=== PATIENT | female | born 1935 | race Caucasian/White ===

== ENCOUNTER → 2017-06-17 | Outpatient (CLI) | payer OTHER ==
[~2017-06-17] MED LIST: ASPEC81 PO; ASPI81TA28 PO; CHOL100010 PO; CHOL100041 PO; CLC100 PO; CRS10 PO; DILT-113 PO; DXY100 PO; FURO-85 PO; GABA-112 PO; HYDR-4716 PO; KFL/250 PO; LEVO100T7 PO; LEVO88TA PO; LOSA100T65 PO; MAXAIR IN; MYCO15 TD; PLV75 PO; POTA20TA16 PO; ROSU20TA PO; VNTHFA/IN INH
== END | disposition home or self-care (01) ==
LOC: C.LABSPEC 16:31
PROVIDERS: ATTEND Dermatology
DX: L03.90 Cellulitis, unspecified (principal)

== ENCOUNTER 2017-06-18 18:06 | Observation (INO) | payer OTHER ==
[~2017-06-18] VITALS: Ht 162.6 cm; Wt 76.0 kg
[~2017-06-18 18:06] MED LIST changes: -ASPI81TA28 PO; -CHOL100041 PO; -CLC100 PO; -DXY100 PO; -GABA-112 PO; -KFL/250 PO; -LEVO88TA PO; -ROSU20TA PO; -VNTHFA/IN INH
--- NOTE | 2017-06-18 19:01 | DIAGNOSTIC IMAGING REPORT ---
R PELVIS/UNILATERAL HIP 2-3VIEWS CLINICAL HISTORY: 82 years-old Female presenting with EVAL FOR FX. TECHNIQUE: Single frontal view of the pelvis and frontal and lateral views of the right hip were obtained. COMPARISON: None. FINDINGS: Osteopenia. Sacroiliac joints and pubic symphysis congruent. Left hip joint congruent. Postsurgical changes of total right hip arthroplasty. Cerclage wire and plate and screw fixation of the mid diaphysis of the right femur with evidence of chronic periosteal reaction indicating posttraumatic deformity. No hardware complication or malalignment is apparent. No periprosthetic fracture allowing for osteopenia, which decreases the sensitivity for nondisplaced fracture. No hardware breakage. Degenerative changes of the right knee joint. Atherosclerosis. IMPRESSION: Postsurgical changes of total right hip arthroplasty with internal fixation of the mid femoral diaphysis and posttraumatic deformity. No convincing evidence of acute osseous injury allowing for osteopenia. Electronically signed by: Samir Tamayo M.D. 06/18/2017 7:00 PM Dictated Date/Time: 06/18/2017 6:58 PM
--- NOTE | 2017-06-18 19:10 | DIAGNOSTIC IMAGING REPORT ---
L-SPINE MIN 4 VIEWS ROUTINE HISTORY: 82 years-old Female eval for fx acute low back pain status post fall COMPARISON: None available TECHNIQUE: 5 views of the lumbar spine FINDINGS: There are 5 lumbar type vertebral segments present. No spondylolysis or spondylolisthesis. The bones appear to be osteoporotic. No acute fracture or subluxation. Severe intervertebral disc space narrowing at L5-S1 with moderate intervertebral disc space narrowing of the lower thoracic spine. Severe facet arthropathy of the mid and lower lumbar spine with mostly mild multilevel endplate spurring. Atherosclerosis of the aorta. Probable phleboliths of the pelvis. Right hip arthroplasty. IMPRESSION: 1. No acute fracture or subluxation. 2. Degenerative changes as above. 3. Osteoporotic appearance of the bones. The above report was generated using voice recognition software. It may contain grammatical, syntax or spelling errors. Electronically signed by: Santy Gonzalez M.D. 06/18/2017 7:09 PM Dictated Date/Time: 06/18/2017 7:06 PM
[2017-06-18] MEDS ORDERED: VNTHFA/IN INH (19:49)
[2017-06-18] MEDS ORDERED: GABA-112 PO (19:49)
[2017-06-18] MEDS ORDERED: ROSU20TA PO (19:49)
[2017-06-18] MEDS ORDERED: CHOL100041 PO (19:49)
[2017-06-18] MEDS ORDERED: ASPI81TA28 PO (19:49)
[2017-06-18] MEDS ORDERED: LEVO88TA PO (19:49)
[2017-06-18] MEDS ORDERED: KFL/250 PO (19:50)
[2017-06-18] MEDS ORDERED: OXYCODONE HCL IR 5 MG TAB (IMMEDIATE RELEASE) PO STA (20:03)
--- NOTE | 2017-06-18 20:48 | DIAGNOSTIC IMAGING REPORT ---
PELVIS NO IV/ORAL CONT (CT) HISTORY: 82 years-old Female eval for pelvic fracture acute pelvic pain status post fall. Prior right hip arthroplasty. COMPARISON: Pelvis and right hip radiographs 2017 TECHNIQUE: Multiple axial CT images of the pelvis were obtained without contrast. A dose lowering technique was used consistent with the principals of PAT. FINDINGS: Moderate osteoarthritis about the left hip. Ghost tracks from prior cannulated screws noted within the left intertrochanteric region. Avascular necrosis of the left femoral head is noted with partial articular collapse involving approximately 20% of the articular femoral head, nicely seen on image 39 series 201. Moderate degenerative changes about the pubic symphysis. The bilateral superior and inferior pubic rami appear intact. No pelvic fracture identified. Right hip arthroplasty noted with satisfactory alignment. No evidence of hardware complication. The bones are moderately demineralized. Transitional lumbosacral anatomy is noted with sacralization of the L5 segment. Broad and elongated left L5 transverse process demonstrates pseudoarticulation with the adjacent left sacral ala. There is no evidence of acute sacral insufficiency fracture. Severe facet arthrosis of the lower lumbar spine with moderate endplate spurring. 3 mm anterolisthesis L5 on S1 likely secondary to long-standing facet arthropathy. No acute fracture or subluxation of the imaged lower lumbar spine. Partially imaged 5.0 cm cystic lesion within internal calcified septations as noted involving the inferior pole left kidney. Bilateral renal calcifications are noted suggesting nephrolithiasis. Low attenuating lesions of the right kidney measuring up to 1.8 cm suggests renal cysts. Extensive calcification of the aorta and iliac arteries. No acute intrapelvic abnormality identified. Vascular calcifications are seen involving the uterus. Pelvic structures are partially obscured secondary to streak artifact from right hip arthroplasty. Indeterminate 2.0 cm cystic lesion of the left adnexum. Moderate atrophy noted involving the musculature about the left hip. There is nonspecific bilateral inguinal adenopathy measuring up to 11 mm. IMPRESSION: 1. Moderately demineralized appearance of the bones without acute fracture or subluxation identified. 2. Right hip arthroplasty without evidence of hardware complication. 3. Remote postoperative changes about the left hip with left femoral head avascular necrosis. There is articular collapse involving approximately 20% of the articular femoral head. 4. Transitional lumbosacral anatomy with severe multilevel facet arthropathy of the lower lumbar spine. 5. Indeterminate mild bilateral inguinal adenopathy measuring up to 11 mm in short axis. 6. Partially imaged complex cyst of the inferior pole left kidney. The above report was generated using voice recognition software. It may contain grammatical, syntax or spelling errors. Electronically signed by: Santy Gonzalez M.D. 06/18/2017 8:47 PM Dictated Date/Time: 06/18/2017 8:34 PM
[2017-06-18 22:03] LABS: HEMATOCRIT 37.6 % (37-47); HEMOGLOBIN 12.5 g/dL (12.0-16.0); MEAN CELL VOLUME 79.5 fL (80-100); MEAN CORPUSCULAR HEMOGLOBIN 26.4 pg (25-34); MEAN CORPUSCULAR HGB CONC 33.2 g/dl (32-36); MEAN PLATELET VOLUME 9.1 fL (7.4-10.4); PLATELET COUNT 161 K/uL (130-400); RED CELL DISTRIBUTION WIDTH CV 17.8 % (11.5-14.5); RED CELL DISTRIBUTION WIDTH SD 51.5 fL (36.4-46.3); WHITE BLOOD COUNT 2.89 K/uL (4.8-10.8)
[2017-06-18 22:18] LABS: CALCIUM 9.1 mg/dl (8.5-10.1); CREATININE 0.57 mg/dl (0.60-1.20); POTASSIUM 3.7 mmol/L (3.5-5.1)
[2017-06-18 22:33] LABS: BASO % 0.3 %; BASO ABS # 0.01 K/uL (0-0.2); EOS % 1.7 %; EOS ABS # 0.05 K/uL (0-0.5); IG# 0.01 K/uL (0.00-0.02); LYMPH % 10.7 %; LYMPH ABS # 0.31 K/uL (1.2-3.4); MONO % 15.2 %; MONO ABS # 0.44 K/uL (0.11-0.59); NEUT % 71.8 %; NEUT ABS # 2.07 K/uL (1.4-6.5)
[2017-06-18] MEDS ORDERED: LOSARTAN POTASSIUM 50 MG TAB PO ONE (23:02)
[2017-06-18] MEDS ORDERED: GABAPENTIN 100 MG CAP PO ONE (23:02)
[2017-06-18] MEDS ORDERED: PROCHLORPERAZINE INJ 5 MG in SYRINGE 4 ML IV PRN (23:15)
[2017-06-18] MEDS ORDERED: ACETAMINOPHEN 325 MG TAB PO PRN (23:15)
--- NOTE | 2017-06-18 23:30 | EMERGENCY ROOM VISIT NOTE ---
History Report prepared by Nata: Vernon Kim Under the Supervision of: Dr. Dewey Ardon M.D. First contact with patient: 18:09 Chief Complaint: FALL Stated Complaint: FALL, LOWER BACK PAIN History of Present Illness The patient is an 82 year old female who presents to the Emergency Room with complaints of a fall this evening. She notes that she was walking to the bathroom using a walker. She notes her walker "got away from me," and she slipped and fell backwards on to her back. She notes her lower back is in pain. She notes the pain is more to the right. She denies any head or neck injury. She denies any arm or leg pain. She denies any weakness. She notes the pain is worsened with movement. She has a history of stroke which has made it difficult for her to walk normally. She reports a history of total hip replacement performed by Dr. Alicea. She denies any history of recent illness, though she has cellulitis to her left leg and she is currently taking Keflex. Source of History: patient Onset: this evening Position: back (lower) Symptom Intensity: moderate Quality: ache Timing: intermittent Modifying Factors (Worsening): movement Associated Symptoms: No neck pain Note: She denies any head injuries, arm pain, or leg pain. Review of Systems See HPI for pertinent positives & negatives. A total of 10 systems reviewed and were otherwise negative. Past Medical & Surgical Medical Problems: (1) Fall (2) HLD (hyperlipidemia) (3) HTN (hypertension) (4) Hypothyroidism (5) Lacunar infarction (6) Stroke Surgical Problems: (1) H/O total hip arthroplasty (2) History of appendectomy (3) History of bilateral hip replacements (4) Hx of total knee arthroplasty Family History Omit d/t age Social History Smoking Status: Former Smoker Smokeless Tobacco Use: No Alcohol Use: none Drug Use: none Marital Status: Housing Status: lives with family Occupation Status: retired Current/Historical Medications Scheduled Aspirin (Aspirin Ec), 81 MG PO DAILY Cephalexin Monohydrate (Keflex), 250 MG PO QID Cholecalciferol (D 1000), 1,000 UNITS PO DAILY Clopidogrel Bisulfate (Clopidogrel), 75 MG PO DAILY Gabapentin (Neurontin), 100 MG PO TID Levothyroxine Sodium (Synthroid), 88 MCG PO DAILY Losartan Potassium (Cozaar), 100 MG PO DAILY Rosuvastatin Calcium (Crestor), 20 MG PO DAILY Scheduled PRN Albuterol Hfa (Ventolin Hfa), 2 PUFFS INH Q6H PRN for SOB/Wheezing Furosemide (Lasix), 20 MG PO UD PRN for SWELLING Nystatin/Triamcinolone (Nystatin/Triamcinolone 308682-1.1 Unit/gm-%), 1 APPLN TD DAILY PRN for Itching Allergies Coded Allergies: LINH Inhibitors (Verified Allergy, Unknown, UNK, 08/14/15) Aminophylline (Verified Allergy, Unknown, 08/14/15) Amoxicillin (Verified Allergy, Unknown, SWELLING OF HANDS, 08/14/15) Beta Adrenergic Blockers (Verified Allergy, Unknown, UNK, 08/14/15) Penicillins (Verified Allergy, Unknown, 08/14/15) Physical Exam Vital Signs Date Time Temp Pulse Resp B/P (MAP) Pulse Ox O2 Delivery O2 Flow Rate FiO2 06/18/17 22:17 84 16 162/88 94 Room Air 06/18/17 20:20 76 19 134/76 95 Room Air 06/18/17 18:24 36.7 82 19 184/97 95 Room Air Physical Exam Constitutional: Vital signs reviewed. Eyes: Pupils are equal round reactive to light. Conjunctiva are noninjected. ENT: Pharynx is clear without erythema or exudate. Mucous membranes are moist. Neck supple without meningeal signs. No midline tenderness to cervical spine. Respiratory: Clear to auscultation bilaterally. Breath sounds are equal bilaterally. Cardiovascular: Regular rate and rhythm. No rubs or gallops. GI: Soft, nondistended and nontender. Bowel sounds are present. Musculoskeletal: No tenderness to upper extremities or right hip. No deformity or shortening of right leg. No tenderness to right leg. Some erythema to shins bilaterally, left greater than right. Normal distal pulses. Integumentary: No cyanosis. Neurological: The patient is awake and alert. No focal deficits. Psychiatric: Normal affect. Medical Decision & Procedures ER Provider Diagnostic Interpretation: Radiology results as stated below per my review and the radiologist's interpretation: R PELVIS/UNILATERAL HIP 2-3VIEWS CLINICAL HISTORY: 82 years-old Female presenting with EVAL FOR FX. TECHNIQUE: Single frontal view of the pelvis and frontal and lateral views of the right hip were obtained. COMPARISON: None. FINDINGS: Osteopenia. Sacroiliac joints and pubic symphysis congruent. Left hip joint congruent. Postsurgical changes of total right hip arthroplasty. Cerclage wire and plate and screw fixation of the mid diaphysis of the right femur with evidence of chronic periosteal reaction indicating posttraumatic deformity. No hardware complication or malalignment is apparent. No periprosthetic fracture allowing for osteopenia, which decreases the sensitivity for nondisplaced fracture. No hardware breakage. Degenerative changes of the right knee joint. Atherosclerosis. IMPRESSION: Postsurgical changes of total right hip arthroplasty with internal fixation of the mid femoral diaphysis and posttraumatic deformity. No convincing evidence of acute osseous injury allowing for osteopenia. Electronically signed by: Samir Tamayo M.D. 06/18/2017 7:00 PM Dictated Date/Time: 06/18/2017 6:58 PM L-SPINE MIN 4 VIEWS ROUTINE HISTORY: 82 years-old Female eval for fx acute low back pain status post fall COMPARISON: None available TECHNIQUE: 5 views of the lumbar spine FINDINGS: There are 5 lumbar type vertebral segments present. No spondylolysis or spondylolisthesis. The bones appear to be osteoporotic. No acute fracture or subluxation. Severe intervertebral disc space narrowing at L5-S1 with moderate intervertebral disc space narrowing of the lower thoracic spine. Severe facet arthropathy of the mid and lower lumbar spine with mostly mild multilevel endplate spurring. Atherosclerosis of the aorta. Probable phleboliths of the pelvis. Right hip arthroplasty. IMPRESSION: 1. No acute fracture or subluxation. 2. Degenerative changes as above. 3. Osteoporotic appearance of the bones. The above report was generated using voice recognition software. It may contain grammatical, syntax or spelling errors. Electronically signed by: Santy Gonzalez M.D. 06/18/2017 7:09 PM Dictated Date/Time: 06/18/2017 7:06 PM Laboratory Results 06/18/17 21:53 Red Blood Count 4.73, Mean Corpuscular Volume 79.5, Mean Corpuscular Hemoglobin 26.4, Mean Corpuscular Hemoglobin Concent 33.2, Mean Platelet Volume 9.1, Neutrophils (%) (Auto) 71.8, Lymphocytes (%) (Auto) 10.7, Monocytes (%) (Auto) 15.2, Eosinophils (%) (Auto) 1.7, Basophils (%) (Auto) 0.3, Neutrophils # (Auto ) 2.07, Lymphocytes # (Auto) 0.31, Monocytes # (Auto) 0.44, Eosinophils # (Auto ) 0.05, Basophils # (Auto) 0.01 06/18/17 21:53 Test 06/18/17 21:53 White Blood Count 2.89 K/uL (4.8-10.8) Red Blood Count 4.73 M/uL (4.2-5.4) Hemoglobin 12.5 g/dL (12.0-16.0) Hematocrit 37.6 % (37-47) Mean Corpuscular Volume 79.5 fL (80-100) Mean Corpuscular Hemoglobin 26.4 pg (25-34) Mean Corpuscular Hemoglobin Concent 33.2 g/dl (32-36) Platelet Count 161 K/uL (130-400) Mean Platelet Volume 9.1 fL (7.4-10.4) Neutrophils (%) (Auto) 71.8 % Lymphocytes (%) (Auto) 10.7 % Monocytes (%) (Auto) 15.2 % Eosinophils (%) (Auto) 1.7 % Basophils (%) (Auto) 0.3 % Neutrophils # (Auto) 2.07 K/uL (1.4-6.5) Lymphocytes # (Auto) 0.31 K/uL (1.2-3.4) Monocytes # (Auto) 0.44 K/uL (0.11-0.59) Eosinophils # (Auto) 0.05 K/uL (0-0.5) Basophils # (Auto) 0.01 K/uL (0-0.2) RDW Standard Deviation 51.5 fL (36.4-46.3) RDW Coefficient of Variation 17.8 % (11.5-14.5) Immature Granulocyte % (Auto) 0.3 % Immature Granulocyte # (Auto) 0.01 K/uL (0.00-0.02) Ovalocytes 1+ Anion Gap 7.0 mmol/L (3-11) Est Creatinine Clear Calc Drug Dose 77.0 ml/min Estimated GFR () 100.1 Estimated GFR (Non- 86.3 BUN/Creatinine Ratio 20.7 (10-20) Calcium Level 9.1 mg/dl (8.5-10.1) Magnesium Level 1.8 mg/dl (1.8-2.4) Laboratory results as reviewed by me. Medications Administered Medications (Trade) Dose Ordered Sig/Milagro Route Start Time Stop Time Status Last Admin Dose Admin Oxycodone HCl (Roxicodone Immediate Rel Tab) 5 mg NOW STAT PO 06/18/17 20:03 06/18/17 20:05 DC 06/18/17 20:08 5 MG ED Course 1810: The patient was evaluated in room A12B. A complete history and physical exam was performed. 1910: I reassessed the patient at this time. She will have an ambulatory trial performed. 1936: I spoke with VANNESSA Knapp. She stated that the patient's ambulatory trial was unsuccessful. 1999: I reassessed the patient at this time. She states that when she tried to walk she had a lot of pain above her right pelvis. There is no tenderness to lumbar spine, though there is mild tenderness to the iliac crest on the right side. 2002: Ordered Oxycodone HCl 5 mg PO 2139: I spoke with VANNESSA Knapp. The patient did not do any better with a second ambulatory trial. 2141: I reassessed the patient at this time. She is unable to ambulate despite pain medication. I discussed the results and treatment plan with the patient. I answered all pertaining questions that she had. She expressed understanding and verbalized agreement. The patient will be further evaluated. 2146: I spoke with Dr. Sheets, [facility] hospitalist. We discussed the patient' s case. [facility]. Medical Decision This is an 82-year-old female who presents with injuries after fall. Differential diagnosis includes lumbar compression fracture, intervertebral disc disease, hip fracture, pelvic fracture, contusion. I did perform a limited focused review of portions of the patient's old chart on the electronic medical record. The patient has had no recent pertinent visits to this hospital. I did evaluate the patient as noted above. The patient had a mechanical fall and complains of lower back pain and right hip pain. I did order and personally review the patient's x-rays as described above. There is no evidence of fracture or dislocation. We did try to ambulate her. She had significant difficulty and so I did treat her with OxyIR 1 tab p.o. I did order a CT of the pelvis to evaluate for occult fracture. I did review the images myself as well as the radiology report as described above. There was no evidence of fracture. She was still unable to walk after the pain medication. She will therefore require hospitalization for further care as her cannot take care of her at home. He states it is difficult enough since her stroke and now with this recent injury he will not be able to care for her. IV access was established. I did order and review the patient's blood work as noted in the electronic medical record. She does have leukopenia. I did discuss case with the hospitalist and case coordinator. Medication Reconcilliation Current Medication List: was personally reviewed by me Blood Pressure Screening Patient's blood pressure: Elevated blood pressure Consults Time Called: 2143 Consulting Physician: Dr. Sheets [facility] Returned Call: [address] [facility] We discussed the patient's case. The [facility]. Impression Primary Impression: Low back pain Additional Impressions: Fall Ambulatory dysfunction Bilateral lower leg cellulitis Leukopenia Scribe Attestation The scribe's documentation has been prepared under my direct and personally reviewed by me in its entirety. I confirm that the note above accurately reflects all work, treatment, procedures, and medical decision making performed by me. Departure Information Dispostion Being Evaluated By Hospitalist Referrals Bulmaro Forbes M.D. (PCP) Patient Instructions My [facility] Problem Qualifiers Primary Impression: Low back pain Chronicity: acute Back pain laterality: bilateral Sciatica presence: without sciatica Qualified Codes: M54.5 - Low back pain Additional Impressions: Fall Encounter type: initial encounter Qualified Codes: W19.XXXA - Unspecified fall, initial encounter Leukopenia Leukopenia type: unspecified Qualified Codes: D72.819 - Decreased white blood cell count, unspecified
[2017-06-18 23:54] VITALS: Ht 162.6 cm; Wt 76.0 kg
[2017-06-19] VITALS: BP 142/78; PULSE 90; TEMP 36.7; O2SAT 95
[2017-06-19] MEDS ORDERED: DOXYCYCLINE IV 100 MG in DEXTROSE 5% 100ML 100 ML IV ONE (00:30)
[2017-06-19] MEDS ORDERED: NSS + 20MEQ KCL 1000ML 1,000 ML IV ONE (01:00)
[2017-06-19] MEDS: TRAMADOL HCL 50 MG TAB PO PRN ×2 (01:36→16:36)
[2017-06-19] MEDS ORDERED: IV FLUIDS COMPLETED PRN (04:30)
[2017-06-19] MEDS: LEVOTHYROXINE 88 MCG TAB PO SCH (06:16)
--- NOTE | 2017-06-19 06:55 | DIAGNOSTIC IMAGING REPORT ---
L VENOUS DOPP LOWER EXT UNILAT CLINICAL HISTORY: 82 years-old Female presenting with LLE swelling. TECHNIQUE: Real-time grayscale and color and spectral Doppler ultrasound imaging of the veins of the left lower extremity was performed. Compression and augmentation were also utilized. COMPARISON: None. FINDINGS: Left: Common femoral vein: Patent. Greater saphenous vein: Patent. Deep femoral vein: Patent. Femoral vein: Patent. Popliteal vein: Patent. Calf veins: Limited visualization. Other: None. IMPRESSION: No evidence of deep venous thrombosis. Electronically signed by: Samir Tamayo M.D. 06/19/2017 6:54 AM Dictated Date/Time: 06/19/2017 6:53 AM
[2017-06-19 07:14] VITALS: BP 156/73; PULSE 82; TEMP 36.9; O2SAT 94
[2017-06-19 07:26] LABS: HEMOGLOBIN A1C 5.5 % (4.5-5.6)
[2017-06-19 08:00] VITALS: O2SAT 94
[2017-06-19 08:09] LABS: EOS % 3.9 %; EOS ABS # 0.08 K/uL (0-0.5); HEMATOCRIT 35.5 % (37-47); HEMOGLOBIN 11.7 g/dL (12.0-16.0); IG# 0.01 K/uL (0.00-0.02); LYMPH ABS # 0.39 K/uL (1.2-3.4); MEAN CELL VOLUME 79.4 fL (80-100); MEAN CORPUSCULAR HEMOGLOBIN 26.2 pg (25-34); MEAN PLATELET VOLUME 9.1 fL (7.4-10.4); MONO ABS # 0.39 K/uL (0.11-0.59); NEUT % 57.6 %; NEUT ABS # 1.18 K/uL (1.4-6.5); PLATELET COUNT 154 K/uL (130-400); RED CELL DISTRIBUTION WIDTH CV 17.8 % (11.5-14.5); RED CELL DISTRIBUTION WIDTH SD 51.5 fL (36.4-46.3); WHITE BLOOD COUNT 2.05 K/uL (4.8-10.8)
[2017-06-19 08:27] LABS: INR 1.1 (0.9-1.1)
[2017-06-19] MEDS: ASPIRIN 81 MG ECTAB PO SCH (09:36)
[2017-06-19] MEDS: CLOPIDOGREL BISULFATE 75 MG TAB PO SCH (09:36)
[2017-06-19] MEDS: DOXYCYCLINE HYCLATE 100 MG CAP PO SCH ×2 (09:36→20:08)
[2017-06-19] MEDS: GABAPENTIN 100 MG CAP PO SCH ×3 (09:36→20:08)
[2017-06-19] MEDS: ROSUVASTATIN CALCIUM 20 MG TAB PO SCH (09:36)
[2017-06-19] MEDS: ENOXAPARIN 30 MG/0.3 ML SYR SQ SCH (10:00)
--- NOTE | 2017-06-19 12:00 | HISTORY & PHYSICAL EXAMINATION ---
DATE OF ADMISSION: 06/19/2017 PRIMARY CARE PHYSICIAN: Dr. Forbes CHIEF COMPLAINT: Fall. HISTORY OF PRESENT ILLNESS: History obtained from the patient and records. Medical history significant for hypertension, hyperlipidemia, history of CVA, past tobacco abuse, asthma as per records, PSVT as per records. Recent confinement July 2015 for acute small vessel CVA. Last night, patient had a fall after her walker got away from her. Patient fell on her low back. Patient noted achy back pain, needed help getting up. No incontinence, no leg weakness. Denies chest pain, shortness of breath, or syncope symptoms. Patient brought to the Emergency Room. Unable to ambulate due to pain. MEDICAL HISTORY: As above. Seen at Dermatology office a few days ago for possible cellulitis, LLE, with note of LLE wound. No fever, no chills. Patient started on oral Keflex. SURGERIES: She has had hip surgery, appendectomy, knee surgery. HOME MEDICATIONS: Include Neurontin, Synthroid, Cozaar, Crestor, Albuterol, ASA, lisinopril, Keflex, Plavix and Lasix. ALLERGIES: ALLERGIC TO AMOXICILLIN, PENICILLIN, LINH INHIBITOR, BETA MIKHAIL. FAMILY HISTORY: Hypertension. PERSONAL AND SOCIAL HISTORY: Smoked a few cigarettes when she was younger but was never addicted. No chronic intake of alcoholic beverages. 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 Lives with . Born in [facility]. REVIEW OF SYSTEMS: As per HPI, all 10 systems reviewed, all other ROS negative. PHYSICAL EXAMINATION: VITAL SIGNS: Blood pressure was noted to be 184/97, pulse rate noted to be 82, RR 18, temperature 36.7, sats 90 on room air. GENERAL: Noted to be slightly uncomfortable but pleasant, no respiratory distress. Looks younger for stated age. SKIN: Normal color, warm. HEENT: [place] palpebral conjunctivae. No ptosis. Dry mucosa. NECK: Short, nontender. CHEST: Clear to auscultation. No tenderness. HEART: RRR, no murmur ABDOMEN: Soft, nontender BACK low back tenderness negative straight leg raise test. Extremities: Erythematous LLE with dressing over wound on anterior surface, minimal tenderness NEUROLOGIC: Coherent, no gross focality except for mild hearing impairment.. LABORATORY DATA: Hemoglobin was noted to be 12.5, hematocrit 37.6. white cell count 2.89, platelets noted to be 161. Sodium noted to be 136, potassium 3.7, chloride 107, BUN 12, creatinine 0.5, glucose 164. IMAGING: CT pelvis showed right hip arthroplasty without hardware complication, remote postop changes left hip with avascular necrosis with some collapse, mild bilateral inguinal adenopathy, partially imaged complex cyst inferior pole of the left kidney. LLE Ultrasound no DVT. ASSESSMENT AND PLAN: 1. Ambulatory dysfunction. 2. Left leg cellulitis secondary to LLE wound, no sepsis Recent cephalosporin prescription initiated 3. Hypertension, elevated secondary to pain, missed p.m. medication 4. history of CVA 5. hx PSVT as per records 6. hx Asthma, stable 7. hyperglycemia, rule out diabetes. 8. incidental finding of partial complex kidney cyst on on a pelvic CT. Observation [facility] PT, OT eval. Fall precautions. Facilitate nighttime ARB Analgesia Wound cultures, change Cephalexin to doxycycline. Check hemoglobin A1c dedicated imaging for kidney cyst, Urology consultation outpatient. Social service RE discharge planning DVT prophylaxis with Lovenox subQ. Full code. MTDD
[2017-06-19 14:26] VITALS: BP 161/88; PULSE 78; O2SAT 98
[2017-06-19 15:32] VITALS: BP 150/83; PULSE 83; TEMP 36.8; O2SAT 94
[2017-06-19] MEDS ORDERED: DOCUSATE SODIUM 100 MG CAP PO STA (15:42)
[2017-06-19] MEDS: HYDROmorphone INJ 0.5 MG/0.5 ML SYR IV PRN (17:47)
--- NOTE | 2017-06-19 18:22 | Progress Note ---
Subjective Date of Service: Jun 19, 2017. Subjective Pt evaluation today including: conversation w/ patient, physical exam, lab review, review of studies, review of inpatient medication list Saw/examined the patient in room 256 She states she's doing fine Tells me she had a mechanical fall due to tripping on the carpet She uses a walker at all times at home No other issues currently Problem List Medical Problems: (1) Ambulatory dysfunction Status: Acute (2) Bilateral lower leg cellulitis Status: Acute (3) CVA (cerebral vascular accident) Status: Acute (4) Leukopenia Status: Acute (5) Low back pain Status: Acute Review of Systems Respiratory: No shortness of breath Cardiac: No chest pain Musculoskeletal: No joint pain Neurologic: + weakness, + balance problems, No numbness/tingling, No vertigo Medications Current Inpatient Medications Medications (Trade) Dose Ordered Sig/Milagro Route Start Time Stop Time Status Last Admin Dose Admin Aspirin (Ecotrin Tab) 81 mg DAILY PO 06/19/17 09:00 07/19/17 08:59 06/19/17 09:36 81 MG Clopidogrel Bisulfate (plAVix TAB) 75 mg DAILY PO 06/19/17 09:00 07/19/17 08:59 06/19/17 09:36 75 MG Gabapentin (Neurontin Cap) 100 mg TID PO 06/19/17 09:00 07/19/17 08:59 06/19/17 09:36 100 MG Levothyroxine Sodium (Synthroid Tab) 88 mcg DAILYBB PO 06/19/17 06:30 07/19/17 06:29 06/19/17 06:16 88 MCG Losartan Potassium (coZAAR TAB) 100 mg HS PO 06/19/17 21:00 07/19/17 20:59 Rosuvastatin Calcium (Crestor Tab) 20 mg DAILY PO 06/19/17 09:00 07/19/17 08:59 06/19/17 09:36 20 MG Enoxaparin Sodium (Lovenox Inj) 30 mg Q24H SQ 06/19/17 10:00 07/19/17 09:59 Acetaminophen (Tylenol Tab) 650 mg Q4H PRN PO 06/18/17 23:15 07/18/17 23:14 Doxycycline Hyclate (Vibramycin Cap) 100 mg BID PO 06/19/17 09:00 06/29/17 08:59 06/19/17 09:36 100 MG Prochlorperazine Edisylate 5 mg/ Syringe 5 ml @ 5 mls/min Q6H PRN IV 06/18/17 23:15 07/18/17 23:14 Tramadol HCl (Ultram Tab) 25 mg Q6H PRN PO 06/18/17 23:15 07/18/17 23:14 06/19/17 16:36 25 MG Hydromorphone HCl (Dilaudid Inj) 0.5 mg Q6H PRN IV 06/18/17 23:15 07/02/17 23:14 06/19/17 17:47 0.5 MG Miscellaneous (Iv Fluids Completed) 1 ea PRN PRN N/A 06/19/17 04:30 06/19/18 04:29 Docusate Sodium (coLACE CAP) 100 mg BID PO 06/19/17 21:00 07/19/17 20:59 Objective Vital Signs Date Time Temp Pulse Resp B/P (MAP) Pulse Ox O2 Delivery O2 Flow Rate FiO2 06/19/17 15:32 36.8 83 16 150/83 (105) 94 Room Air 06/19/17 14:26 78 98 06/19/17 08:00 94 Room Air 06/19/17 07:14 36.9 82 16 156/73 (100) 94 Room Air 06/19/17 00:00 36.7 90 20 142/78 (99) 95 Room Air 06/18/17 23:54 Room Air 06/18/17 23:29 87 16 159/85 95 Room Air 06/18/17 22:17 84 16 162/88 94 Room Air 06/18/17 20:20 76 19 134/76 95 Room Air 06/18/17 18:24 36.7 82 19 184/97 95 Room Air Physical Exam General Appearance: no apparent distress Respiratory/Chest: lungs clear, normal breath sounds, no respiratory distress, no accessory muscle use Cardiovascular: regular rate, rhythm, no edema, no murmur Neurologic/Psychiatric: no motor/sensory deficits, alert, normal mood/affect Laboratory Results Last 24 Hours Test 06/18/17 21:53 06/19/17 07:53 White Blood Count 2.89 K/uL 2.05 K/uL Red Blood Count 4.73 M/uL 4.47 M/uL Hemoglobin 12.5 g/dL 11.7 g/dL Hematocrit 37.6 % 35.5 % Mean Corpuscular Volume 79.5 fL 79.4 fL Mean Corpuscular Hemoglobin 26.4 pg 26.2 pg Mean Corpuscular Hemoglobin Concent 33.2 g/dl 33.0 g/dl Platelet Count 161 K/uL 154 K/uL Mean Platelet Volume 9.1 fL 9.1 fL Neutrophils (%) (Auto) 71.8 % 57.6 % Lymphocytes (%) (Auto) 10.7 % 19.0 % Monocytes (%) (Auto) 15.2 % 19.0 % Eosinophils (%) (Auto) 1.7 % 3.9 % Basophils (%) (Auto) 0.3 % 0.0 % Neutrophils # (Auto) 2.07 K/uL 1.18 K/uL Lymphocytes # (Auto) 0.31 K/uL 0.39 K/uL Monocytes # (Auto) 0.44 K/uL 0.39 K/uL Eosinophils # (Auto) 0.05 K/uL 0.08 K/uL Basophils # (Auto) 0.01 K/uL 0.00 K/uL RDW Standard Deviation 51.5 fL 51.5 fL RDW Coefficient of Variation 17.8 % 17.8 % Immature Granulocyte % (Auto) 0.3 % 0.5 % Immature Granulocyte # (Auto) 0.01 K/uL 0.01 K/uL Ovalocytes 1+ Sodium Level 138 mmol/L Potassium Level 3.7 mmol/L Chloride Level 107 mmol/L Carbon Dioxide Level 24 mmol/L Anion Gap 7.0 mmol/L Blood Urea Nitrogen 12 mg/dl Creatinine 0.57 mg/dl Est Creatinine Clear Calc Drug Dose 77.0 ml/min Estimated GFR () 100.1 Estimated GFR (Non- 86.3 BUN/Creatinine Ratio 20.7 Random Glucose 164 mg/dl Estimated Average Glucose 111 mg/dl Hemoglobin A1c 5.5 % Calcium Level 9.1 mg/dl Magnesium Level 1.8 mg/dl Prothrombin Time 11.4 SECONDS Prothromb Time International Ratio 1.1 Assessment and Plan This is an 82 year old female with a PMH of CVA, HTN, PVCs, hypothyroidism - presents with a fall and weakness Mechanical Fall Ambulatory Dysfunction patient uses a walker at all times tells me she tripped over the carpet wants to return home and refusing SNF did well with PT/OT plan for d/c home with home health in AM LLE Cellulitis initially placed on Keflex switched to Doxycycline will continue doxycycline until outpatient follow-up with dermatology Hx. of CVA continue aspirin + Plavix; statin HTN cont. Cozaar Hypothyroidism continue Synthroid DVT ppx Lovenox FULL CODE
[2017-06-19] MEDS: DOCUSATE SODIUM 100 MG CAP PO SCH (20:07)
[2017-06-19] MEDS: LOSARTAN POTASSIUM 50 MG TAB PO SCH (20:08)
[2017-06-19 23:15] VITALS: BP 157/101; PULSE 79; TEMP 36.6; O2SAT 95
[2017-06-20] MEDS: LEVOTHYROXINE 88 MCG TAB PO SCH (06:10)
[2017-06-20 07:34] VITALS: BP 158/74; PULSE 82; TEMP 37; O2SAT 96
[2017-06-20 08:00] VITALS: O2SAT 96
[2017-06-20] MEDS: ROSUVASTATIN CALCIUM 20 MG TAB PO SCH (08:01)
[2017-06-20] MEDS: ASPIRIN 81 MG ECTAB PO SCH (08:01)
[2017-06-20] MEDS: GABAPENTIN 100 MG CAP PO SCH ×3 (08:01→21:34)
[2017-06-20] MEDS: DOCUSATE SODIUM 100 MG CAP PO SCH ×2 (08:02→21:33)
[2017-06-20] MEDS: DOXYCYCLINE HYCLATE 100 MG CAP PO SCH ×2 (08:02→21:34)
[2017-06-20] MEDS: CLOPIDOGREL BISULFATE 75 MG TAB PO SCH (08:02)
[2017-06-20] MEDS: ENOXAPARIN 30 MG/0.3 ML SYR SQ SCH (10:00)
--- NOTE | 2017-06-20 11:00 | Progress Note ---
Subjective Date of Service: Jun 20, 2017. Subjective Pt evaluation today including: conversation w/ patient, physical exam, lab review, review of studies, review of inpatient medication list Saw/examined the patient in room 256 No problems/issues to note I let her know that PT/OT both recommend going to rehab She is agreeable, but will speak with regarding where they would want to go Symptomatically, no symptoms; states at night she at times get confused in the hospital Problem List Medical Problems: (1) Ambulatory dysfunction Status: Acute (2) Bilateral lower leg cellulitis Status: Acute (3) CVA (cerebral vascular accident) Status: Acute (4) Leukopenia Status: Acute (5) Low back pain Status: Acute Review of Systems Constitutional: + weakness, No fever, No chills Respiratory: No shortness of breath Cardiac: No chest pain, No edema, No palpitations Neurologic: + balance problems Medications Current Inpatient Medications Medications (Trade) Dose Ordered Sig/Milagro Route Start Time Stop Time Status Last Admin Dose Admin Aspirin (Ecotrin Tab) 81 mg DAILY PO 06/19/17 09:00 07/19/17 08:59 06/20/17 08:01 81 MG Clopidogrel Bisulfate (plAVix TAB) 75 mg DAILY PO 06/19/17 09:00 07/19/17 08:59 06/20/17 08:02 75 MG Gabapentin (Neurontin Cap) 100 mg TID PO 06/19/17 09:00 07/19/17 08:59 06/20/17 08:01 100 MG Levothyroxine Sodium (Synthroid Tab) 88 mcg DAILYBB PO 06/19/17 06:30 07/19/17 06:29 06/20/17 06:10 88 MCG Losartan Potassium (coZAAR TAB) 100 mg HS PO 06/19/17 21:00 07/19/17 20:59 06/19/17 20:08 100 MG Rosuvastatin Calcium (Crestor Tab) 20 mg DAILY PO 06/19/17 09:00 07/19/17 08:59 06/20/17 08:01 20 MG Enoxaparin Sodium (Lovenox Inj) 30 mg Q24H SQ 06/19/17 10:00 07/19/17 09:59 Acetaminophen (Tylenol Tab) 650 mg Q4H PRN PO 06/18/17 23:15 07/18/17 23:14 Doxycycline Hyclate (Vibramycin Cap) 100 mg BID PO 06/19/17 09:00 06/29/17 08:59 06/20/17 08:02 100 MG Prochlorperazine Edisylate 5 mg/ Syringe 5 ml @ 5 mls/min Q6H PRN IV 06/18/17 23:15 07/18/17 23:14 Tramadol HCl (Ultram Tab) 25 mg Q6H PRN PO 06/18/17 23:15 07/18/17 23:14 06/19/17 16:36 25 MG Hydromorphone HCl (Dilaudid Inj) 0.5 mg Q6H PRN IV 06/18/17 23:15 07/02/17 23:14 06/19/17 17:47 0.5 MG Miscellaneous (Iv Fluids Completed) 1 ea PRN PRN N/A 06/19/17 04:30 06/19/18 04:29 06/19/17 21:18 1 EA Docusate Sodium (coLACE CAP) 100 mg BID PO 06/19/17 21:00 07/19/17 20:59 06/20/17 08:02 100 MG Objective Vital Signs Date Time Temp Pulse Resp B/P (MAP) Pulse Ox O2 Delivery O2 Flow Rate FiO2 06/20/17 08:00 96 Room Air 06/20/17 07:34 37.0 82 16 158/74 (102) 96 Room Air 06/20/17 00:00 Room Air 06/19/17 23:15 36.6 79 18 157/101 (119) 95 Room Air 06/19/17 16:00 Room Air 06/19/17 15:32 36.8 83 16 150/83 (105) 94 Room Air 06/19/17 14:26 78 98 Physical Exam General Appearance: no apparent distress Respiratory/Chest: lungs clear, normal breath sounds, no respiratory distress, no accessory muscle use Cardiovascular: regular rate, rhythm, no murmur Extremities: + pertinent finding (LLE wrapped) Assessment and Plan This is an 82 year old female with a PMH of CVA, HTN, PVCs, hypothyroidism - presents with a fall and weakness Mechanical Fall Ambulatory Dysfunction 06/20 patient is now agreeable to rehab discharge PT/OT both made this recommendation reconsulted case management plan for d/c to rehab when able 06/19 patient uses a walker at all times tells me she tripped over the carpet wants to return home and refusing SNF did well with PT/OT plan for d/c home with home health in AM LLE Cellulitis 06/20 staph aureus growth, further speciation pending 06/19 initially placed on Keflex switched to Doxycycline will continue doxycycline until outpatient follow-up with dermatology Hx. of CVA continue aspirin + Plavix; statin HTN cont. Cozaar Hypothyroidism continue Synthroid DVT ppx Lovenox FULL CODE
[2017-06-20 16:06] VITALS: BP 152/91; PULSE 79; TEMP 36.9; O2SAT 93
[2017-06-20] MEDS: TRAMADOL HCL 50 MG TAB PO PRN (16:54)
[2017-06-20] MEDS: HYDROmorphone INJ 0.5 MG/0.5 ML SYR IV PRN (21:31)
[2017-06-20] MEDS: LOSARTAN POTASSIUM 50 MG TAB PO SCH (21:33)
[2017-06-20 23:20] VITALS: BP 152/91; PULSE 79; TEMP 36.6; O2SAT 94
[2017-06-21] MEDS: LEVOTHYROXINE 88 MCG TAB PO SCH (06:23)
[2017-06-21 07:45] VITALS: BP 140/90; PULSE 84; TEMP 36.5; O2SAT 95
[2017-06-21] MEDS: ASPIRIN 81 MG ECTAB PO SCH (07:56)
[2017-06-21] MEDS: ROSUVASTATIN CALCIUM 20 MG TAB PO SCH (07:56)
[2017-06-21] MEDS: GABAPENTIN 100 MG CAP PO SCH ×3 (07:56→20:35)
[2017-06-21] MEDS: DOCUSATE SODIUM 100 MG CAP PO SCH ×2 (07:56→20:35)
[2017-06-21] MEDS: DOXYCYCLINE HYCLATE 100 MG CAP PO SCH ×2 (07:56→20:35)
[2017-06-21] MEDS: CLOPIDOGREL BISULFATE 75 MG TAB PO SCH (07:56)
[2017-06-21 08:06] LABS: MEAN CELL VOLUME 78.8 fL (80-100); MEAN CORPUSCULAR HEMOGLOBIN 26.3 pg (25-34); MEAN CORPUSCULAR HGB CONC 33.3 g/dl (32-36); MEAN PLATELET VOLUME 9.2 fL (7.4-10.4); PLATELET COUNT 152 K/uL (130-400); RED CELL DISTRIBUTION WIDTH CV 17.8 % (11.5-14.5); RED CELL DISTRIBUTION WIDTH SD 50.8 fL (36.4-46.3); WHITE BLOOD COUNT 2.34 K/uL (4.8-10.8)
[2017-06-21 09:08] VITALS: O2SAT 95
[2017-06-21] MEDS: ENOXAPARIN 30 MG/0.3 ML SYR SQ SCH (10:00)
[2017-06-21] MEDS: CEPHALEXIN MONOHYDRATE 250 MG CAP PO SCH ×3 (13:07→20:35)
--- NOTE | 2017-06-21 14:41 | Progress Note ---
Subjective Date of Service: Jun 21, 2017. Subjective Pt evaluation today including: conversation w/ patient, physical exam, lab review, review of studies, review of inpatient medication list Saw/examined the patient in room 256 No problems/issues to note today Tells me she walked in the hallway Refused working with PT Problem List Medical Problems: (1) Ambulatory dysfunction Status: Acute (2) Bilateral lower leg cellulitis Status: Acute (3) CVA (cerebral vascular accident) Status: Acute (4) Leukopenia Status: Acute (5) Low back pain Status: Acute Review of Systems Constitutional: + weakness Respiratory: No shortness of breath Cardiac: No chest pain Musculoskeletal: + joint pain Medications Current Inpatient Medications Medications (Trade) Dose Ordered Sig/Milagro Route Start Time Stop Time Status Last Admin Dose Admin Aspirin (Ecotrin Tab) 81 mg DAILY PO 06/19/17 09:00 07/19/17 08:59 06/21/17 07:56 81 MG Clopidogrel Bisulfate (plAVix TAB) 75 mg DAILY PO 06/19/17 09:00 07/19/17 08:59 06/21/17 07:56 75 MG Gabapentin (Neurontin Cap) 100 mg TID PO 06/19/17 09:00 07/19/17 08:59 06/21/17 13:07 100 MG Levothyroxine Sodium (Synthroid Tab) 88 mcg DAILYBB PO 06/19/17 06:30 07/19/17 06:29 06/21/17 06:23 88 MCG Losartan Potassium (coZAAR TAB) 100 mg HS PO 06/19/17 21:00 07/19/17 20:59 06/20/17 21:33 100 MG Rosuvastatin Calcium (Crestor Tab) 20 mg DAILY PO 06/19/17 09:00 07/19/17 08:59 06/21/17 07:56 20 MG Enoxaparin Sodium (Lovenox Inj) 30 mg Q24H SQ 06/19/17 10:00 07/19/17 09:59 Acetaminophen (Tylenol Tab) 650 mg Q4H PRN PO 06/18/17 23:15 07/18/17 23:14 Doxycycline Hyclate (Vibramycin Cap) 100 mg BID PO 06/19/17 09:00 06/29/17 08:59 06/21/17 07:56 100 MG Prochlorperazine Edisylate 5 mg/ Syringe 5 ml @ 5 mls/min Q6H PRN IV 06/18/17 23:15 07/18/17 23:14 Tramadol HCl (Ultram Tab) 25 mg Q6H PRN PO 06/18/17 23:15 07/18/17 23:14 06/20/17 16:54 25 MG Hydromorphone HCl (Dilaudid Inj) 0.5 mg Q6H PRN IV 06/18/17 23:15 07/02/17 23:14 06/20/17 21:31 0.5 MG Miscellaneous (Iv Fluids Completed) 1 ea PRN PRN N/A 06/19/17 04:30 06/19/18 04:29 06/19/17 21:18 1 EA Docusate Sodium (coLACE CAP) 100 mg BID PO 06/19/17 21:00 07/19/17 20:59 06/21/17 07:56 100 MG Cephalexin Monohydrate (Keflex Cap) 250 mg QID PO 06/21/17 13:00 07/01/17 12:59 06/21/17 13:07 250 MG Objective Vital Signs Date Time Temp Pulse Resp B/P (MAP) Pulse Ox O2 Delivery O2 Flow Rate FiO2 06/21/17 09:08 95 Room Air 06/21/17 08:00 Room Air 06/21/17 07:45 36.5 84 20 140/90 (107) 95 Room Air 06/21/17 00:00 Room Air 06/20/17 23:20 36.6 79 18 152/91 (111) 94 Room Air 06/20/17 16:06 36.9 79 18 152/91 (111) 93 Room Air 06/20/17 16:00 Room Air Physical Exam General Appearance: no apparent distress Respiratory/Chest: no respiratory distress, no accessory muscle use Cardiovascular: regular rate, rhythm Extremities: normal inspection, no pedal edema Neurologic/Psychiatric: no motor/sensory deficits, alert, normal mood/affect Laboratory Results Last 24 Hours Test 06/21/17 07:46 White Blood Count 2.34 K/uL Red Blood Count 4.57 M/uL Hemoglobin 12.0 g/dL Hematocrit 36.0 % Mean Corpuscular Volume 78.8 fL Mean Corpuscular Hemoglobin 26.3 pg Mean Corpuscular Hemoglobin Concent 33.3 g/dl RDW Standard Deviation 50.8 fL RDW Coefficient of Variation 17.8 % Platelet Count 152 K/uL Mean Platelet Volume 9.2 fL Assessment and Plan This is an 82 year old female with a PMH of CVA, HTN, PVCs, hypothyroidism - presents with a fall and weakness Mechanical Fall Ambulatory Dysfunction 06/21 no change in plans continue PT/OT case management aware; unfortunately, patient may not qualify for rehab 06/20 patient is now agreeable to rehab discharge PT/OT both made this recommendation reconsulted case management plan for d/c to rehab when able 06/19 patient uses a walker at all times tells me she tripped over the carpet wants to return home and refusing SNF did well with PT/OT plan for d/c home with home health in AM LLE Cellulitis 06/21 will continue doxycycline and Keflex until outpatient dermatology follow-up 06/20 staph aureus growth, further speciation pending 06/19 initially placed on Keflex switched to Doxycycline will continue doxycycline until outpatient follow-up with dermatology Hx. of CVA continue aspirin + Plavix; statin HTN cont. Cozaar Hypothyroidism continue Synthroid DVT ppx Lovenox FULL CODE
[2017-06-21 15:45] VITALS: BP 132/88; PULSE 93; TEMP 37.2; O2SAT 93
[2017-06-21] MEDS ORDERED: BISACODYL 10 MG SUPP PR STA (20:06)
[2017-06-21] MEDS ORDERED: HALOPERIDOL 1 MG TAB PO PRN (20:15)
[2017-06-21] MEDS ORDERED: BISACODYL 10 MG SUPP PR PRN (20:15)
[2017-06-21] MEDS: LOSARTAN POTASSIUM 50 MG TAB PO SCH (20:35)
[2017-06-22] VITALS: BP 146/88; PULSE 77; TEMP 36.6; O2SAT 95
[2017-06-22] MEDS: LEVOTHYROXINE 88 MCG TAB PO SCH (05:59)
[2017-06-22 07:44] VITALS: BP 150/82; PULSE 74; TEMP 36.5; O2SAT 100
[2017-06-22] MEDS: GABAPENTIN 100 MG CAP PO SCH ×2 (07:53→14:05)
[2017-06-22] MEDS: ROSUVASTATIN CALCIUM 20 MG TAB PO SCH (07:53)
[2017-06-22] MEDS: CEPHALEXIN MONOHYDRATE 250 MG CAP PO SCH ×3 (07:53→17:32)
[2017-06-22] MEDS: ASPIRIN 81 MG ECTAB PO SCH (07:53)
[2017-06-22] MEDS: CLOPIDOGREL BISULFATE 75 MG TAB PO SCH (07:53)
[2017-06-22] MEDS: DOXYCYCLINE HYCLATE 100 MG CAP PO SCH (07:53)
[2017-06-22] MEDS: DOCUSATE SODIUM 100 MG CAP PO SCH (07:53)
[2017-06-22] MEDS: ENOXAPARIN 30 MG/0.3 ML SYR SQ SCH (10:00)
[2017-06-22] MEDS: TRAMADOL HCL 50 MG TAB PO PRN (12:22)
[2017-06-22] MEDS ORDERED: CLC100 PO (13:31)
[2017-06-22] MEDS ORDERED: KFL/250 PO (13:31)
[2017-06-22] MEDS ORDERED: DXY100 PO (13:31)
--- NOTE | 2017-06-22 13:50 | Discharge Instructions ---
Discharge Instructions Date of Service Jun 22, 2017. Admission Reason for Admission: FALL Discharge Discharge Diagnosis / Problem: Fall, cellulitis Discharge Goals Goal(s): Decrease discomfort, Improve function, Diagnostic testing, Therapeutic intervention Activity Recommendations Activity Limitations: resume your previous activity . Instructions / Follow-Up Instructions / Follow-Up Please follow-up with your primary care doctor and your dermatology after stay at [facility] * You will be on both doxycycline and Keflex for your leg infection Current Hospital Diet Patient's current hospital diet: AHA Diet (Heart Healthy) Discharge Diet Recommended Diet: AHA Diet (Heart Healthy) Pending Studies Studies pending at discharge: no Laboratory Results Hemoglobin A1c Test 06/18/17 21:53 Range/Units Estimated Average Glucose 111 mg/dl Hemoglobin A1c 5.5 4.5-5.6 % Medical Emergencies . Who to Call and When: Medical Emergencies: If at any time you feel your situation is an emergency, please call 911 immediately. . Non-Emergent Contact Non-Emergency issues call your: Primary Care Provider . Past History Medical & Surgical History: (1) Ambulatory dysfunction (2) Fall . "Provider Documentation" section prepared by Baltazar Perdomo. . VTE Core Measure Inpt VTE Proph given/why not?: Enoxaparin (Lovenox)SQ
--- NOTE | 2017-06-22 13:50 | Progress Note ---
Subjective Date of Service: Jun 22, 2017. Subjective Pt evaluation today including: conversation w/ patient, physical exam, lab review, review of studies, review of inpatient medication list Saw/examined the patient in room 256 She's doing well; eager to get out of the hospital Problem List Medical Problems: (1) Ambulatory dysfunction Status: Acute (2) Bilateral lower leg cellulitis Status: Acute (3) CVA (cerebral vascular accident) Status: Acute (4) Leukopenia Status: Acute (5) Low back pain Status: Acute Review of Systems Constitutional: No fever, No chills Respiratory: No cough, No sputum, No shortness of breath Cardiac: No chest pain, No edema, No palpitations Medications Current Inpatient Medications Medications (Trade) Dose Ordered Sig/Milagro Route Start Time Stop Time Status Last Admin Dose Admin Aspirin (Ecotrin Tab) 81 mg DAILY PO 06/19/17 09:00 07/19/17 08:59 06/22/17 07:53 81 MG Clopidogrel Bisulfate (plAVix TAB) 75 mg DAILY PO 06/19/17 09:00 07/19/17 08:59 06/22/17 07:53 75 MG Gabapentin (Neurontin Cap) 100 mg TID PO 06/19/17 09:00 07/19/17 08:59 06/22/17 07:53 100 MG Levothyroxine Sodium (Synthroid Tab) 88 mcg DAILYBB PO 06/19/17 06:30 07/19/17 06:29 06/22/17 05:59 88 MCG Losartan Potassium (coZAAR TAB) 100 mg HS PO 06/19/17 21:00 07/19/17 20:59 06/21/17 20:35 100 MG Rosuvastatin Calcium (Crestor Tab) 20 mg DAILY PO 06/19/17 09:00 07/19/17 08:59 06/22/17 07:53 20 MG Enoxaparin Sodium (Lovenox Inj) 30 mg Q24H SQ 06/19/17 10:00 07/19/17 09:59 Acetaminophen (Tylenol Tab) 650 mg Q4H PRN PO 06/18/17 23:15 07/18/17 23:14 Doxycycline Hyclate (Vibramycin Cap) 100 mg BID PO 06/19/17 09:00 06/29/17 08:59 06/22/17 07:53 100 MG Prochlorperazine Edisylate 5 mg/ Syringe 5 ml @ 5 mls/min Q6H PRN IV 06/18/17 23:15 07/18/17 23:14 Tramadol HCl (Ultram Tab) 25 mg Q6H PRN PO 06/18/17 23:15 07/18/17 23:14 06/22/17 12:22 25 MG Hydromorphone HCl (Dilaudid Inj) 0.5 mg Q6H PRN IV 06/18/17 23:15 07/02/17 23:14 06/20/17 21:31 0.5 MG Miscellaneous (Iv Fluids Completed) 1 ea PRN PRN N/A 06/19/17 04:30 06/19/18 04:29 06/19/17 21:18 1 EA Docusate Sodium (coLACE CAP) 100 mg BID PO 06/19/17 21:00 07/19/17 20:59 06/22/17 07:53 100 MG Cephalexin Monohydrate (Keflex Cap) 250 mg QID PO 06/21/17 13:00 07/01/17 12:59 06/22/17 12:22 250 MG Bisacodyl (Dulcolax Supp) 10 mg DAILY PRN [place] 06/21/17 20:15 07/21/17 20:14 Haloperidol (Haldol Tab) 2 mg Q4H PRN PO 06/21/17 20:15 07/21/17 20:14 Objective Vital Signs Date Time Temp Pulse Resp B/P (MAP) Pulse Ox O2 Delivery O2 Flow Rate FiO2 06/22/17 08:00 Room Air 06/22/17 07:44 36.5 74 16 150/82 (104) 100 06/22/17 00:00 Room Air 06/22/17 00:00 36.6 77 20 146/88 (107) 95 Room Air 06/21/17 15:54 Room Air 06/21/17 15:45 37.2 93 18 132/88 (103) 93 Room Air Physical Exam General Appearance: no apparent distress Respiratory/Chest: no respiratory distress, no accessory muscle use Cardiovascular: regular rate, rhythm, no edema, no murmur Extremities: normal inspection, no pedal edema Neurologic/Psychiatric: no motor/sensory deficits, alert, normal mood/affect Assessment and Plan This is an 82 year old female with a PMH of CVA, HTN, PVCs, hypothyroidism - presents with a fall and weakness Mechanical Fall Ambulatory Dysfunction 06/22 patient is doing well denies [facility] patient will be going to [facility] today with doxycycline and Keflex outpatient PCP and dermatology follow-up 06/21 no change in plans continue PT/OT case management aware; unfortunately, patient may not qualify for rehab 06/20 patient is now agreeable to rehab discharge PT/OT both made this recommendation reconsulted case management plan for d/c to rehab when able 06/19 patient uses a walker at all times tells me she tripped over the carpet wants to return home and refusing SNF did well with PT/OT plan for d/c home with home health in AM LLE Cellulitis 06/21 will continue doxycycline and Keflex until outpatient dermatology follow-up 06/20 staph aureus growth, further speciation pending 06/19 initially placed on Keflex switched to Doxycycline will continue doxycycline until outpatient follow-up with dermatology Hx. of CVA continue aspirin + Plavix; statin HTN cont. Cozaar Hypothyroidism continue Synthroid DVT ppx Lovenox FULL CODE
--- NOTE | 2017-06-22 13:53 | Discharge Summary ---
Discharge Summary Date of Service Jun 22, 2017. Discharge Summary Admission Date: Jun 18, 2017 at 22:55 Discharge Date: Jun 22, 2017 Discharge Disposition: correction facility Principal Diagnosis: Fall, Ambulatory Dysfunction Left LE Cellulitis Hx. of CVA HTN Medication Reconciliation New Medications: Docusate Sodium (Docusate Sodium) 100 Mg Cap 100 MG PO BID for 30 Days, #60 CAP Doxycycline Hyclate (Doxycycline Hyclate) 100 Mg Cap 100 MG PO BID for 10 Days, #20 CAP Continued Medications: Albuterol Hfa (Ventolin Hfa) 200 Puffs/67515 Mcg Aers 2 PUFFS INH Q6H PRN for SOB/Wheezing, #1 INHALER Aspirin (Aspirin Ec) 81 Mg Tab 81 MG PO DAILY Cephalexin Monohydrate (Keflex) 250 Mg Cap 250 MG PO QID for 10 Days, #40 CAP (This prescription has been renewed) Cholecalciferol (D 1000) 1,000 Unit Cap 1000 UNITS PO DAILY Clopidogrel Bisulfate (Clopidogrel) 75 Mg Tab 75 MG PO DAILY Furosemide (Lasix) 20 Mg Tab 20 MG PO UD PRN for SWELLING, TAB Gabapentin (Neurontin) 100 Mg Cap 100 MG PO TID, CAP Levothyroxine Sodium (Synthroid) 88 Mcg Tab 88 MCG PO DAILY, TAB Losartan Potassium (Cozaar) 100 Mg Tab 100 MG PO DAILY, TAB Nystatin/Triamcinolone (Nystatin/Triamcinolone 012088-2.1 Unit/gm-%) 45 Appln/ 15 Gm Oint 1 APPLN TD DAILY PRN for Itching Rosuvastatin Calcium (Crestor) 20 Mg Tab 20 MG PO DAILY, TAB Admission Information HPI (per Admitting provider): DATE OF ADMISSION: 06/19/2017 PRIMARY CARE PHYSICIAN: Dr. Forbes CHIEF COMPLAINT: Fall. HISTORY OF PRESENT ILLNESS: History obtained from the patient and records. Medical history significant for hypertension, hyperlipidemia, history of CVA, past tobacco abuse, asthma as per records, PSVT as per records. Recent confinement July 2015 for acute small vessel CVA. Last night, patient had a fall after her walker got away from her. Patient fell on her low back. Patient noted achy back pain, needed help getting up. No incontinence, no leg weakness. Denies chest pain, shortness of breath, or syncope symptoms. Patient brought to the Emergency Room. Unable to ambulate due to pain. MEDICAL HISTORY: As above. Seen at Dermatology office a few days ago for possible cellulitis, LLE, with note of LLE wound. No fever, no chills. Patient started on oral Keflex. SURGERIES: She has had hip surgery, appendectomy, knee surgery. HOME MEDICATIONS: Include Neurontin, Synthroid, Cozaar, Crestor, Albuterol, ASA, lisinopril, Keflex, Plavix and Lasix. ALLERGIES: ALLERGIC TO AMOXICILLIN, PENICILLIN, LINH INHIBITOR, BETA MIKHAIL. FAMILY HISTORY: Hypertension. PERSONAL AND SOCIAL HISTORY: Smoked a few cigarettes when she was younger but was never addicted. No chronic intake of alcoholic beverages. 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 Lives with . Born in [facility]. REVIEW OF SYSTEMS: As per HPI, all 10 systems reviewed, all other ROS negative. PHYSICAL EXAMINATION: VITAL SIGNS: Blood pressure was noted to be 184/97, pulse rate noted to be 82, RR 18, temperature 36.7, sats 90 on room air. GENERAL: Noted to be slightly uncomfortable but pleasant, no respiratory distress. Looks younger for stated age. SKIN: Normal color, warm. HEENT: [place] palpebral conjunctivae. No ptosis. Dry mucosa. NECK: Short, nontender. CHEST: Clear to auscultation. No tenderness. HEART: RRR, no murmur ABDOMEN: Soft, nontender BACK low back tenderness negative straight leg raise test. Extremities: Erythematous LLE with dressing over wound on anterior surface, minimal tenderness NEUROLOGIC: Coherent, no gross focality except for mild hearing impairment.. LABORATORY DATA: Hemoglobin was noted to be 12.5, hematocrit 37.6. white cell count 2.89, platelets noted to be 161. Sodium noted to be 136, potassium 3.7, chloride 107, BUN 12, creatinine 0.5, glucose 164. IMAGING: CT pelvis showed right hip arthroplasty without hardware complication, remote postop changes left hip with avascular necrosis with some collapse, mild bilateral inguinal adenopathy, partially imaged complex cyst inferior pole of the left kidney. LLE Ultrasound no DVT. ASSESSMENT AND PLAN: 1. Ambulatory dysfunction. 2. Left leg cellulitis secondary to LLE wound, no sepsis Recent cephalosporin prescription initiated 3. Hypertension, elevated secondary to pain, missed p.m. medication 4. history of CVA 5. hx PSVT as per records 6. hx Asthma, stable 7. hyperglycemia, rule out diabetes. 8. incidental finding of partial complex kidney cyst on on a pelvic CT. Observation [facility] PT, OT eval. Fall precautions. Facilitate nighttime ARB Analgesia Wound cultures, change Cephalexin to doxycycline. Check hemoglobin A1c dedicated imaging for kidney cyst, Urology consultation outpatient. Social service RE discharge planning DVT prophylaxis with Lovenox subQ. Full code. Hospital Course This is an 82 year old female with a PMH of CVA, HTN, PVCs, hypothyroidism - presents with a fall and weakness Mechanical Fall Ambulatory Dysfunction 06/22 patient is doing well [facility] patient will be going to [facility] today with doxycycline and Keflex outpatient PCP and dermatology follow-up 06/21 no change in plans continue PT/OT case management aware; unfortunately, patient may not qualify for rehab 06/20 patient is now agreeable to rehab discharge PT/OT both made this recommendation reconsulted case management plan for d/c to rehab when able 06/19 patient uses a walker at all times tells me she tripped over the carpet wants to return home and refusing SNF did well with PT/OT plan for d/c home with home health in AM LLE Cellulitis 06/21 will continue doxycycline and Keflex until outpatient dermatology follow-up 06/20 staph aureus growth, further speciation pending 06/19 initially placed on Keflex switched to Doxycycline will continue doxycycline until outpatient follow-up with dermatology Hx. of CVA continue aspirin + Plavix; statin HTN cont. Cozaar Hypothyroidism continue Synthroid DVT ppx Lovenox FULL CODE Total time spent on discharge = 25 minutes This includes examination of the patient, discharge planning, medication reconciliation, and communication with other providers. Discharge Instructions Please follow-up with your primary care doctor and your dermatology after stay at [facility] * You will be on both doxycycline and Keflex for your leg infection
[2017-06-22 14:17] VITALS: BP 150/82; PULSE 74; TEMP 36.5; O2SAT 100
== END 2017-06-22 20:25 ==
LOC: EDBD 18:06 → C.EDA 18:07 → C.MS2W 22:55 → ENRESERV 23:02
PROVIDERS: ADMIT Family Medicine; ATTEND Family Medicine
DX: R26.9 Unspecified abnormalities of gait and mobility (principal); M54.5 Low back pain; W01.0XXA Fall on same level from slipping, tripping and stumbling without subsequent striking against object, initial encounter; W22.8XXA Striking against or struck by other objects, initial encounter; Y93.01 Activity, walking, marching and hiking; L03.115 Cellulitis of right lower limb; L03.116 Cellulitis of left lower limb; D72.819 Decreased white blood cell count, unspecified; E78.5 Hyperlipidemia, unspecified; B95.7 Other staphylococcus as the cause of diseases classified elsewhere; I10 Essential (primary) hypertension; E03.9 Hypothyroidism, unspecified; Z96.659 Presence of unspecified artificial knee joint; Z96.643 Presence of artificial hip joint, bilateral; Z86.73 Personal history of transient ischemic attack (TIA), and cerebral infarction without residual deficits; Z87.891 Personal history of nicotine dependence; Z79.82 Long term (current) use of aspirin; Z79.899 Other long term (current) drug therapy; Z88.1 Allergy status to other antibiotic agents; Z88.8 Allergy status to other drugs, medicaments and biological substances; Z88.0 Allergy status to penicillin

== ENCOUNTER 2019-11-12 06:35 | Inpatient (IN) ==
--- NOTE | 2019-11-12 06:59 | Emergency Department Note ---
Impression & Plan Right knee sprain, Ambulatory dysfunction, Neutropenia ED Provider Note Provider: Hira Tello MD DATE OF SERVICE: 11/12/2019 CHIEF COMPLAINT: Right knee pain HISTORY OF PRESENT ILLNESS: Patient is a 84-year-old female with a history of CVA and hypothyroidism presenting today from home via ambulance after stating that her right leg got stuck between the side of her recliner in the foot rest. Patient states she try to use her hand to lift up her right leg and injured her right knee. Patient denies other fall. Patient denies any pain medicine prior to arrival. Patient denies placing ice on the knee. Patient states pain is predominantly there when she moves the right knee or when she tries to stand on it. Patient states her left knee was replaced previously but this is her cindi ginal right knee. Denies injury to the foot or hip. Denies other injury to the extremity. Patient states she is on aspirin and Plavix but denies the use of other blood thinners at this point. Patient denies other injury. REVIEW OF SYSTEMS: A total of 6 review of systems was obtained and negative except as stated above in the HPI. PAST MEDICAL HISTORY: As noted above MEDICATIONS: Reviewed home medication which to significant include her report aspirin and Plavix SOCIAL HISTORY: Lives at home with PHYSICAL EXAM: GENERAL: alert and oriented to person, location, and event in no acute distress on stretcher Head: normocephalic and atraumatic EYES: No injection, discharge or icterus. NECK: Trachea midline. ENT: Mucous membranes pink and moist. LUNGS: Airway patent. No retractions. Breath sounds clear HEART: Regular rate and rhythm. No chest wall tenderness ABDOMEN: Soft and non-tender, without guarding or rebound. SKIN: Acyanotic, warm, dry, without rashes EXTREMITIES: Patient has healed surgical scar left knee without tenderness or swelling. Patient's right knee is moderately swollen prickly medially with some medial joint line tenderness and pain with ROM. No evidence of laceration. Denies numbness or tingling in her right lower leg or foot. 1+ DP pulse of the right leg. NEUROLOGICAL: Patient has decreased movement in the slight contracture of the left upper extremity and left lower extremity. Patient states this is chronic from prior stroke. Patient has no significant aphasia although some slight accent is appreciated. Neurologically intact in the right upper lower extremity. Patient's hypertension was referred to PCP HOSPITAL COURSE: 699 Patient was first seen and H&P performed. 804 Patient reassessed and updated. Patient was in agreement with plan for observation given her ambulatory dysfunction 0858 discussed with the [facility] team Patient's imaging reviewed. Differential includes Fracture, subluxation, dislocation, contusion, ligamentous injury, neurovascular, compartment syndrome, rhabdomyolysis, as well as other pathologies. IMPRESSION/MEDICAL DECISION MAKING: Patient presents after what sound like mechanical injury to the right knee. No significant fallen did not strike her head. Do not feel at this time the patie nt requires additional imaging beyond the knee. Doubt this represents DVT or infection. Given her antiplatelet usage question the effusion related to some possible bleeding in this area. Doubt infected joint or crystalline disease here given the history. X-rays were obtained and get put some ice on the area. Patient declined Tylenol. Patient states her pain was not too bad at this point when she tried to move or walk on it. Do not feel other laboratory studies are indicated at this time. X-ray completed of the knee and radiology report reviewed showing soft tissue swelling with advanced degenerative changes and osteopenia. Discussed with the patient findings. Discussed R ICE care and weightbearing as tolerated on this knee. Discussed the patient options at this time regarding knee immobilizer, José Manuel wrap, crutches, and/or walker. Patient states uses walker at baseline. Patient states due to her prior stroke her left side is weak. Discussed with patient options about going home. After discussion I do a concerned about the patient's ability to be able to ambulate given her prior stroke in the left side and now injury to her right leg even with a walker. Discussed with her concerns and possibility of precipitating another fall or worse. Given some Motrin here and ordered a knee immobilizer. Basic labs and urine ordered. Laboratory studies do show evidence of a sig nificantly worsened leukopenia compared to previous value from 2018. Some slight anemia is noted. Platelet count appears stable. There is no reported chemotherapeutic agents being used at this time and unsure if this is chronic. Again not a experiencing significant infectious symptomatologies at this point although urinalysis is pending. Afebrile. Discussed with the patient given concerns about her ambulation feel that direct discharge home would be dangerous. Discussed with case management options for further observation versus placement. Discussed with the hospitalist. Attempted to call the patient's but there was no answer on the phone. DIAGNOSIS: Right knee sprain, ambulatory dysfunction, leukopenia/neutropenia DISPOSITION: Being evaluated by the hospitalist team Past Med/Surg History Medical History History of CVA (cerebrovascular accident) (Chronic) HLD (hyperlipidemia) (Chronic) HTN (hypertension) (Chronic) Hypothyroidism Left hemiparesis (Chronic) Surgical History History of appendectomy (Inactive) History of bilateral hip replacements (Inactive) History of cholecystectomy History of loop electrical excision procedure (LEEP) History of nasal polypectomy Hx of total knee arthroplasty (Inactive) Family History (Updated 11/12/19 @ 10:54 by Tania Cabral PA-C) Other Hypertension Stroke Denies family history of Ovarian cancer Breast cancer Social History Smoking Status: Never smoker Hx Alcohol Use: No Hx Substance Use: No Preferred Language: Prydeinig Communication Ability: Effective Inspector Floor Required: No Beliefs That Will Affect Care: None Current Living Situation: Spouse Other Information That Helps Us Care for You: No Feels Safe at Home: Yes Safety Concerns: Feels Safe At This Time Allergies Allergies Allergy/AdvReac Type Severity Reaction Status Date / Time JOSÉ MANUEL Inhibitors Allergy Unknown UNK Verified 11/12/19 07:42 aminophylline Allergy Unknown Verified 11/12/19 07:42 amoxicillin Allergy Unknown SWELLING Verified 11/12/19 07:42 OF HANDS Beta-Blockers Allergy Unknown UNK Verified 11/12/19 07:42 (Beta-Adrenergic Bloc Penicillins Allergy Unknown Verified 11/12/19 07:42 Home Meds Home Medications Medication Instructions Recorded Confirmed clopidogrel 75 mg tablet 75 mg PO QAM tab 11/21/18 11/12/19 fluticasone 250 mcg-salmeterol 50 1 puffs INHALATION DAILY PRN ea 11/21/18 11/12/19 mcg/dose blistr powdr for inhalation silver sulfadiazine 1 % topical 1 appln TOPICAL .COMPLEX gm 11/21/18 11/12/19 cream aspirin 81 mg PO QAM 11/12/19 11/12/19 cholecalciferol (vitamin D3) 25 mcg PO HS 11/12/19 11/12/19 [Vitamin D3] gabapentin 100 mg PO QID 11/12/19 11/12/19 levothyroxine 88 mcg PO MOTUWETHFRSA 11/12/19 11/12/19 losartan 100 mg PO HS 11/12/19 11/12/19 rosuvastatin 10 mg PO HS 11/12/19 11/12/19 Results & Data (ED) Vital Signs Vital Signs - 24 hr 11/12/19 06:50 11/12/19 08:00 Temperature 36.8 C Temperature Source Oral Pulse Rate 88 Pulse Rate [Apical] 85 Respiratory Rate 18 18 Blood Pressure 141/86 H Blood Pressure [Left Arm] 147/114 H Blood Pressure Mean 104 Blood Pressure Mean [Left Arm] 125 Pulse Oximetry 98 99 Oxygen Delivery Method Room Air Sepsis Recent Fever Within 48 Hours No Sepsis New/Unexplained Change in Mental Status No Sepsis Action Taken by Nursing No Action Required Laboratory Data Result diagrams: 11/12/19 08:30 11/12/19 08:30 Lab Results 11/12/19 11/12/19 Range/Units 08:30 08:30 WBC 0.97 L* (4.8-10.8) K/uL RBC 4.16 L (4.2-5.4) M/uL Hgb 10.8 L (12.0-16.0) g/dL Hct 32.9 L (37-47) % MCV 79.1 L (80-100) fL MCH 26.0 (25-34) pg MCHC 32.8 (32-36) g/dL RDW Std Deviation 51.5 H (36.4-46.3) fL RDW Coeff of Josue 17.9 H (11.5-14.5) % Plt Count 133 (130-400) K/uL MPV 9.3 (7.4-10.4) fL Immature Gran % (Auto) 0.0 % Neut % (Auto) 44.3 % Lymph % (Auto) 34.0 % Callahan % (Auto) 18.6 % Eos % (Auto) 3.1 % Baso % (Auto) 0.0 % Neut # (Auto) 0.43 L* (1.4-6.5) K/uL Lymph # (Auto) 0.33 L (1.2-3.4) K/uL Callahan # (Auto) 0.18 (0.11-0.59) K/uL Eos # (Auto) 0.03 (0-0.5) K/uL Baso # (Auto) 0.00 (0-0.2) K/uL Immature Gran # (Auto) 0.00 (0.00-0.02) K/uL Ovalocytes 1+ Sodium 142 (136-145) mmol/L Potassium 3.9 (3.5-5.1) mmol/L Chloride 111 H (98-107) mmol/L Carbon Dioxide 27 (21-32) mmol/L Anion Gap 4.0 (3-11) BUN 15 (7-18) mg/dl Creatinine 0.82 (0.6-1.2) mg/dl Est Cr Clr Drug Dosing 47.4 ml/min Est GFR ( Amer) 76.2 Est GFR (Non-Af Amer) 65.7 BUN/Creatinine Ratio 17.6 (10-20) Glucose 134 H (70-99) mg/dl Calcium 9.6 (8.5-10.1) mg/dl Total Bilirubin 0.8 (0.2-1) mg/dl Direct Bilirubin 0.2 (0-0.2) mg/dl AST 13 L (15-37) U/L ALT 15 (12-78) U/L Alkaline Phosphatase 102 (45-117) U/L Total Protein 6.2 L (6.4-8.2) gm/dl Albumin 3.6 (3.4-5.0) gm/dl Administered Medications Acetaminophen (Tylenol) 1,000 mg PO Q8H [facility] Stop: 12/12/19 12:59 Last Admin: 11/12/19 13:03 Dose: 1,000 mg Documented by: [id number] Enoxaparin Sodium (Lovenox) 40 mg SQ Q24H [facility] Stop: 12/12/19 13:59 Last Admin: 11/12/19 13:03 Dose: 40 mg Documented by: [id number] Gabapentin (Neurontin) 100 mg PO QID [facility] Stop: 12/12/19 12:59 Last Admin: 11/12/19 13:04 Dose: 100 mg Documented by: [id number] Ceftriaxone Sodium 1,000 mg/ (Dextrose) 50 mls @ 100 mls/hr IV Q24H [facility]; Protocol Stop: 11/17/19 12:59 Last Admin: 11/12/19 13:03 Dose: 100 mls/hr Documented by: [id number] Silver Sulfadiazine (Silvadene 1% 50gm) 1 appln TOP DAILY [facility] Stop: 12/12/19 11:29 Last Admin: 11/12/19 13:03 Dose: 1 appln Documented by: [id number] Discontinued Medications Sodium Chloride (Nss 1000ml) 500 mls @ 999 mls/hr IV .Q31M ONE Stop: 11/12/19 08:33 Last Infusion: 11/12/19 08:58 Dose: 0 mls/hr Documented by: [id number] Admin: 11/12/19 08:24 Dose: 999 mls/hr Documented by: [id number] Ibuprofen (Advil) 400 mg PO NOW STA Stop: 11/12/19 08:11 Last Admin: 11/12/19 08:25 Dose: 400 mg Documented by: [id number] Discharge Plan Visit Data *Final* Discharge Date/Time: 11/12/19 10:54 Chief Complaint: Leg Injury/Pain Stated Complaint: LEG PAIN ED Provider: Hira Tello Discharge Problem: Right knee sprain, Ambulatory dysfunction, Neutropenia Patient Disposition: Admitted As Inpatient Discharge Instructions Interventions: ED Discharge Assessment Last Done: 11/12/19 10:54 Discharge Problem: Right knee sprain Qualifiers: Encounter type: initial encounter Involved ligament of knee: unspecified ligament Qualified Code(s): S83.91XA - Sprain of unspecified site of right knee, initial encounter Neutropenia Qualifiers: Neutropenia type: unspecified Qualified Code(s): D70.9 - Neutropenia, unspecified
--- NOTE | 2019-11-12 07:40 | XRay Report ---
RIGHT KNEE 4 VIEWS CLINICAL HISTORY: Right knee pain and swelling. Fall. FINDINGS: AP, crosstable lateral, tunnel, and sunrise views of the right knee are obtained. No prior studies are available for comparison at the time of dictation. The skeletal structures are osteopenic . No acute fracture is identified. There is moderate to advanced tricompartmental degenerative joint space narrowing. Osteochondral irregularity and sclerosis is noted at the patellofemoral articulation . Osteochondral irregularity is seen in the medial compartment on the tunnel view. There are marginal osteophytes, patellar enthesophytes, and degenerative beaking of the tibial spine. Postoperative skinny nge is partially visualized in the distal femoral shaft. Chondrocalcinosis is seen in the medial and lateral compartments. There is a joint effusion with several calcified suprapatellar joint bodies. Ad vanced atherosclerotic calcification is noted in the popliteal artery. Mild soft tissue edema is pres ent around the knee. IMPRESSION: 1. Mild soft tissues swelling with no radiographic evidence of acute fracture. 2. Osteopenia with advanced degenerative change and chondrocalcinosis as above. 3. Joint effusion containing calcified joint bodies. Electronically signed by: Paul Tinoco M.D. 11/12/2019 7:39 AM
[2019-11-12] MEDS ORDERED: SODIUM CHLORIDE 0.9% 1000ML 500 ML IV ONE (08:03)
[2019-11-12] MEDS ORDERED: IBUPROFEN 200 MG TAB PO STA (08:10)
[2019-11-12 08:50] LABS: Hematocrit (blood only) 32.9 % (37-47); Hemoglobin 10.8 g/dL (12.0-16.0); Mean Corpuscular Hgb Conc 32.8 g/dL (32-36); Mean Corpuscular Volume 79.1 fL (80-100); Mean Platelet Volume 9.3 fL (7.4-10.4); Platelet Count 133 K/uL (130-400); RDW Coefficient of Variation 17.9 % (11.5-14.5); RDW Standard Deviation 51.5 fL (36.4-46.3); Red Blood Count 4.16 M/uL (4.2-5.4); White Blood Count 0.97 K/uL (4.8-10.8)
[2019-11-12 09:02] LABS: BUN Creatinine Ratio 17.6 (10-20); Calcium 9.6 mg/dl (8.5-10.1); Creatinine Clr Calc Pharmacy 47.4 ml/min; Est GFR (African American) 76.2; Est GFR (Non-African American) 65.7; Potassium 3.9 mmol/L (3.5-5.1)
[2019-11-12 09:03] LABS: Eosinophils # (auto) 0.03 K/uL (0-0.5); Eosinophils % (auto) 3.1 %; Lymphocytes # (auto) 0.33 K/uL (1.2-3.4); Monocytes # (auto) 0.18 K/uL (0.11-0.59); Monocytes % (auto) 18.6 %; Neutrophils # (auto) 0.43 K/uL (1.4-6.5); Neutrophils % (auto) 44.3 %
--- NOTE | 2019-11-12 09:08 | History & Physical Report ---
Date of Service November 12, 2019 Assessment & Plan (1) Right knee sprain: (2) Ambulatory dysfunction: This is an 84-year-old female PMH of hypertension, history of CVA with residual left hemiparesis, dyslipidemia, asthma and other medical problems listed below who is presenting with right knee pain following an injury during the night. 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 Forbes has reportedly been encouraging hematology work up for past few years with bone marrow biopsy - patient has declined anything invasive Agreeable to peripheral smear Neutropenic precautions (4) Abnormal urinalysis: UA abnormal. UTI vs. contaminated specimen with nitrites, 1+ leuk esterase, 1+ urine bacteria and 20-30 epithelial cells. No urinary symptoms. Follow urine cultures (5) History of CVA (cerebrovascular accident): (6) Left hemiparesis: Continue aspirin, plavix (7) HTN (hypertension): Continue losartan HS (8) Hypothyroidism: Continue levothyroxine DVT Ppx: SCDs Code status: FULL per discussion with patient PCP: Leidy Dispo: Admitted to med/surg. Discharge planning ordered. Patient seen in collaboration with Dr. Hernández. Please see addendum. History of Present Illness Chief Complaint: Right knee pain Primary Care Provider: NO PCP This is an 84-year-old female PMH of hypertension, history of CVA with residual left hemiparesis, dyslipidemia, asthma and other medical problems listed below who is presenting with right knee pain following an injury during the night. Patient was sleeping in her recliner last night and woke up around 2am with her right foot stuck between the side of the recliner and the foot rest. Called for help due to pain and they decided to come to ED in the morning for further evaluation. Patient already with some ambulatory dysfunction due to left hemiparesis from former stroke. Walks with walker and requires assistance from for ADLs such as dressing and showering. No right knee pain at rest but experiences pain with any type of movement or when she tries to bear weight on right leg. Did not use ice or take any medications prior to arrival. Denies any fever, chills, lightheadedness, headache, chest pain, shortness of breath, nausea, vomiting, abdominal pain, dysuria, diarrhea or constipation. Allergies Allergy/AdvReac Type Severity Reaction Status Date / Time LINH Inhibitors Allergy Unknown UNK Verified 11/12/19 07:42 aminophylline Allergy Unknown Verified 11/12/19 07:42 amoxicillin Allergy Unknown SWELLING Verified 11/12/19 07:42 OF HANDS Beta-Blockers Allergy Unknown UNK Verified 11/12/19 07:42 (Beta-Adrenergic Bloc Penicillins Allergy Unknown Verified 11/12/19 07:42 Home Medications Home Medications Medication Instructions Recorded Confirmed Type clopidogrel 75 mg tablet 75 mg PO QAM tab 11/21/18 11/12/19 History fluticasone 250 mcg-salmeterol 50 1 puffs INHALATION DAILY PRN ea 11/21/18 11/12/19 History mcg/dose blistr powdr for inhalation silver sulfadiazine 1 % topical 1 appln TOPICAL .COMPLEX gm 11/21/18 11/12/19 History cream aspirin 81 mg PO QAM 11/12/19 11/12/19 History cholecalciferol (vitamin D3) 25 mcg PO HS 11/12/19 11/12/19 History [Vitamin D3] gabapentin 100 mg PO QID 11/12/19 11/12/19 History levothyroxine 88 mcg PO MOTUWETHFRSA 11/12/19 11/12/19 History losartan 100 mg PO HS 11/12/19 11/12/19 History rosuvastatin 10 mg PO HS 11/12/19 11/12/19 History Past Med/Surg History Medical History History of CVA (cerebrovascular accident) (Chronic) HLD (hyperlipidemia) (Chronic) HTN (hypertension) (Chronic) Hypothyroidism Left hemiparesis (Chronic) Surgical History History of appendectomy (Inactive) History of bilateral hip replacements (Inactive) History of cholecystectomy History of loop electrical excision procedure (LEEP) History of nasal polypectomy Hx of total knee arthroplasty (Inactive) Family History (Updated 11/12/19 @ 10:54 by Tania Cabral PA-C) Other Hypertension Stroke Denies family history of Ovarian cancer Breast cancer Social History Smoking Status: Never smoker Hx Alcohol Use: No Hx Substance Use: No Preferred Language: Citizen Of [place] Communication Ability: Effective 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 Physical Exam Physical Exam: General Appearance: WD/WN, vitals as above, NAD, sitting up in bed, pleasant, conversing easily Head: normocephalic, atraumatic Eyes: normal inspection, PERRL, conjunctivae normal, anicteric sclerae ENT: hard of hearing, external ear and nose normal, oropharynx normal Neck: trachea midline, no thyromegaly normal visual inspection Respiratory: normal respiratory effort, lungs clear to auscultation, no wheeze, rales, rhonchi. Normal insp/exp effort, no accessory muscle use Cardiovascular: regular rate, rhythm, no murmur, normal peripheral pulses. Vessels: no JVD Chest: normal inspection of chest Abdomen/GI: normal bowel sounds, soft, nontender, no hepatosplenomegaly Extremities/Musculoskeletal: no cyanosis or clubbing, + R knee with edema and reduced ROM 2/2 pain along medial aspect. No numbness or paresthesias distal RLE. + L hemiparesis with LUE and LLE contractures Neurologic: PERRL, EOMI, accommodation nl, no dysarthria, CN's II-XI intact bilaterally Psychiatric: A+Ox3, euthymic affect Skin: no rashes, normal color, warm/dry Results & Data Results & Data ([facility]) Vital Signs (Past 12 Hours) Vital Signs Temp Pulse Pulse Resp BP BP Pulse Ox 11/12/19 08:00 85 18 147/114 H 99 11/12/19 06:50 36.8 C 88 18 141/86 H 98 Laboratory Results Short CBC 11/12/19 Range/Units 08:30 WBC 0.97 L* (4.8-10.8) K/uL Hgb 10.8 L (12.0-16.0) g/dL Hct 32.9 L (37-47) % Plt Count 133 (130-400) K/uL BMP 11/12/19 08:30 Sodium 142 Potassium 3.9 Chloride 111 H Carbon Dioxide 27 BUN 15 Creatinine 0.82 Glucose 134 H Calcium 9.6 Liver Function 11/12/19 Range/Units 08:30 Total Bilirubin 0.8 (0.2-1) mg/dl Direct Bilirubin 0.2 (0-0.2) mg/dl AST 13 L (15-37) U/L ALT 15 (12-78) U/L Alkaline Phosphatase 102 (45-117) U/L Albumin 3.6 (3.4-5.0) gm/dl Urine 11/12/19 Range/Units 10:27 Urine Color Yellow Urine Appearance Cloudy A (Clear) Urine pH 7.5 (4.5-7.5) Ur Specific [place] 1.013 (1.000-1.030) Urine Protein Negative (Negative) Urine Glucose (UA) Negative (Negative) Diagnostic Findings R Knee XR: IMPRESSION: 1. Mild soft tissues swelling with no radiographic evidence of acute fracture. 2. Osteopenia with advanced degenerative change and chondrocalcinosis as above. 3. Joint effusion containing calcified joint bodies. Supervising Physician Co-Signing Physician Notes I have seen and examined the patient and have discussed the case with the provider above. I agree with the assessment and plan as stated with the following exceptions. Ms. Tolliver apparently injured her leg on her power recliner overnight, however, now has issues with ROM and weight-bearing of her right knee. No acute fractures or swelling is present. Some point tenderness is present on the medial aspect of the knee and flexion is restricted to 30 degrees followed by pain. Abdomen otherwise soft and nontender, Lungs are clear to auscultation and heart exam reveals a small RITO murmur on the LSB. Agree wit h PT assessment of her knee and ambulatory ability in the setting of prior stroke with leg deficits on opposite leg. May need rehab as a transition to home. Agree with empiric rocephin coverage pending urine culture results. Patient denies UTI symptoms, but isn't sure. Pain control as needed overnight. DVT prophylaxis with Lovenox. Trend CBC in am and peripheral smear. ?Neutropenia 2/2 urine infection? DO Edgar (1) Right knee sprain Encounter type: initial encounter Involved ligament of knee: unspecified ligament Qualified Code(s): S83.91XA - Sprain of unspecified site of right knee, initial encounter (2) Neutropenia Neutropenia type: unspecified Qualified Code(s): D70.9 - Neutropenia, unspecified
[2019-11-12 09:13] LABS: Albumin Level 3.6 gm/dl (3.4-5.0); Bilirubin Direct 0.2 mg/dl (0-0.2); Bilirubin,Total 0.8 mg/dl (0.2-1); Total Protein 6.2 gm/dl (6.4-8.2)
[2019-11-12 09:41] LABS: Ovalocytes 1+
[2019-11-12 10:37] LABS: Appearance Urine Cloudy (Clear); Bacteria Urine Automated 1+ (Negative); Bilirubin Urine Negative (Negative); Blood Urine Negative (Negative); Color Urine Yellow; Epithelial Cell Urine Auto 20-30 /lpf (0-5); Glucose Urine UA Negative (Negative); Ketones Urine Negative (Negative); Leukocyte Esterase Urine 1+ (Negative); Nitrite Urine Positive (Negative); Protein Urine Negative (Negative); Specific Gravity Urine 1.013 (1.000-1.030); Urobilinogen Urine Negative (Negative); pH Urine 7.5 (4.5-7.5)
[2019-11-12] MEDS ORDERED: ONDANSETRON INJ 2 MG/ML 2 ML VIAL IV PRN (11:20)
[2019-11-12] MEDS ORDERED: POLYETHYLENE (MIRALAX) 17 GM PACK PO PRN (11:20)
[2019-11-12] MEDS ORDERED: ACETAMINOPHEN 325 MG TAB PO PRN (11:20)
[2019-11-12] MEDS ORDERED: FLUTICASONE/VILANTEROL 200/25MCG 14 PUFFS/INHALER INH PRN (11:34)
[2019-11-12] MEDS: ACETAMINOPHEN 500 MG TAB PO SCH ×2 (13:03→20:00)
[2019-11-12] MEDS: ENOXAPARIN INJ 40 MG/0.4 ML SYR SQ SCH (13:03)
[2019-11-12] MEDS: cefTRIAXone SODIUM 1,000 MG in DEXTROSE 5% 50 ML IV SCH (13:03)
[2019-11-12] MEDS: SILVER SULFADIAZINE 1% CR 50 GM JAR TOP SCH (13:03)
[2019-11-12] MEDS: GABAPENTIN 100 MG CAP PO SCH ×3 (13:04→19:59)
[2019-11-12] MEDS ORDERED: IBUPROFEN 200 MG TAB PO PRN (13:56)
[2019-11-12] MEDS: ROSUVASTATIN CALCIUM 10 MG TAB PO SCH (19:59)
[2019-11-12] MEDS: CHOLECALCIFEROL 1,000 UNITS 25 MCG TAB PO SCH (19:59)
[2019-11-12] MEDS: LOSARTAN POTASSIUM 50 MG TAB PO SCH (20:01)
[2019-11-13] MEDS: ACETAMINOPHEN 500 MG TAB PO SCH ×3 (06:27→20:29)
[2019-11-13] MEDS: LEVOTHYROXINE SODIUM 88 MCG TABLET PO SCH (06:27)
[2019-11-13 06:32] LABS: Hematocrit (blood only) 34.3 % (37-47); Hemoglobin 10.6 g/dL (12.0-16.0); Mean Corpuscular Hemoglobin 24.9 pg (25-34); Mean Corpuscular Hgb Conc 30.9 g/dL (32-36); Mean Corpuscular Volume 80.5 fL (80-100); Mean Platelet Volume 9.2 fL (7.4-10.4); Platelet Count 128 K/uL (130-400); RDW Coefficient of Variation 18.1 % (11.5-14.5); RDW Standard Deviation 52.7 fL (36.4-46.3); Red Blood Count 4.26 M/uL (4.2-5.4); White Blood Count 0.86 K/uL (4.8-10.8)
[2019-11-13 07:05] LABS: BUN Creatinine Ratio 21.9 (10-20); Calcium 9.1 mg/dl (8.5-10.1); Est GFR (African American) 77.3; Est GFR (Non-African American) 66.7; Potassium 3.8 mmol/L (3.5-5.1)
[2019-11-13 07:08] LABS: Eosinophils # (auto) 0.04 K/uL (0-0.5); Eosinophils % (auto) 4.7 %; Lymphocytes # (auto) 0.32 K/uL (1.2-3.4); Lymphocytes % (auto) 37.2 %; Monocytes # (auto) 0.23 K/uL (0.11-0.59); Monocytes % (auto) 26.7 %; Neutrophils # (auto) 0.27 K/uL (1.4-6.5); Neutrophils % (auto) 31.4 %; Ovalocytes 2+
[2019-11-13] MEDS: SILVER SULFADIAZINE 1% CR 50 GM JAR TOP SCH (08:55)
[2019-11-13] MEDS: GABAPENTIN 100 MG CAP PO SCH ×4 (08:57→20:28)
[2019-11-13] MEDS: ASPIRIN 81 MG ECTAB PO SCH (08:57)
[2019-11-13] MEDS: CLOPIDOGREL BISULFATE 75 MG TAB PO SCH (08:57)
[2019-11-13] MEDS: cefTRIAXone SODIUM 1,000 MG in DEXTROSE 5% 50 ML IV SCH (13:28)
[2019-11-13] MEDS: ENOXAPARIN INJ 40 MG/0.4 ML SYR SQ SCH (13:37)
--- NOTE | 2019-11-13 13:49 | Hospitalist Progress Note ---
Date of Service November 13, 2019 Assessment & Plan (1) Right knee sprain: traumatic pinch from her home power recliner. Currenlty doing well, pain is controlled, ROM is improved, however, per PT she will need inpatient rehab. (2) Ambulatory dysfunction: (3) UTI (urinary tract infection): Gram neg bacilli. Cont Rocephin pending speciation and sensitivity. 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 She remains afebrile. Likely the result of recent UTI in setting of chronic leukopenia. She expresses fear of a bone marrow biopsy as was the recommendation from Dr. Yang in Oncology. She has a consult request in for a second opinion for Dr. Bobo Hays at [facility]. cont abx, Cont neutropenic precautions. (5) History of CVA (cerebrovascular accident): Left hemiparesis as a residual deficit complicates her ability to mobilize well independently. Cont aspirin, plavix and crestor for secondary prevention of stroke. (6) HTN (hypertension): Continue losartan HS, slightly elevated. Cont to monitor closely. (7) Hypothyroidism: cont Synthroid per home regimen. (8) DVT prophylaxis: Lovenox Full Code Dispo-to rehab pending authorization. Carmen Hernández DO [facility] Hospitalist Admission and Anticipated Discharge Date Admission Date: November 12, 2019 Subjective Pt is feeling well Had some pain and difficulty ambulating with PT today rehab recommended. afebrile tolerating PO Review of Systems Review of Systems: All systems reviewed & are unremarkable except as noted in Subjective Physical Exam Physical Exam: CONSTITUTIONAL: WNWD, vitals as above, generally well- appearing EYES: normal conjunctivae, no scleral icterus ENT: external ear and nose normal, MMM RESPIRATORY: clear to auscultation bilaterally, no crackles, rales or wheezes, normal respiratory effort CARDIOVASCULAR: regular rate and rhythm, S1 and 2 heard without murmurs, gallops or rubs, no JVD, no peripheral edema GASTROINTESTINAL: soft, nontender, nondistended MUSCULOSKELETAL: Moving her right knee moreso today but still limited ROM and some guarding to passive movement. SKIN: warm and dry NEUROLOGIC: CN 2-12 grossly intact, normal cognition, normal speech, no gross focal deficits. PSYCHIATRIC: alert cooperative and oriented to person, place and time. Results & Data Results & Data ([facility]) Vital Signs (Past 12 Hours) Vital Signs Temp Pulse Resp BP Pulse Ox 11/13/19 07:35 37.0 C 76 20 180/95 H 95 Laboratory Results Short CBC 11/13/19 Range/Units 06:16 WBC 0.86 L* (4.8-10.8) K/uL Hgb 10.6 L (12.0-16.0) g/dL Hct 34.3 L (37-47) % Plt Count 128 L (130-400) K/uL BMP 11/13/19 06:16 Sodium 146 H Potassium 3.8 Chloride 113 H Carbon Dioxide 28 BUN 18 Creatinine 0.81 Glucose 116 H Calcium 9.1 Medications Administered Current Inpatient Medications Acetaminophen (Tylenol) 1,000 mg PO Q8H [facility] Stop: 12/12/19 12:59 Last Admin: 11/13/19 13:30 Dose: 1,000 mg Documented by: Aspirin ([facility]rin [facility]ab) [facility] Stop: 12/13/19 08:59 Last Admin: 11/13/19 08:57 Dose: 81 mg Documented by: Clopidogrel Bisulfate (Plavix) [facility] Stop: 12/13/19 08:59 Last Admin: 11/13/19 08:57 Dose: 75 mg Documented by: Enoxaparin Sodium (Lovenox) 40 mg SQ Q24H [facility] Stop: 12/12/19 13:59 Last Admin: 11/13/19 13:37 Dose: 40 mg Documented by: Fluticasone/Vilanterol (Breo Ellipta 200/25 Mcg Inh) 1 puffs INH DAILY PRN PRN Reason: SHORTNESS OF BREATH Stop: 12/12/19 11:33 Gabapentin (Neurontin) 100 mg PO QID [facility] Stop: 12/12/19 12:59 Last Admin: 11/13/19 13:37 Dose: 100 mg Documented by: Ceftriaxone Sodium 1,000 mg/ (Dextrose) 50 mls @ 100 mls/hr IV Q24H [facility]; Protocol Stop: 11/17/19 12:59 Last Admin: 11/13/19 13:28 Dose: 100 mls/hr Documented by: Levothyroxine Sodium (Synthroid) 88 mcg PO MoTuWeThFrSa@0630 [facility] Stop: 12/13/19 06:29 Last Admin: 11/13/19 06:27 Dose: 88 mcg Documented by: Losartan Potassium (Cozaar) 100 mg PO [facility] Stop: 12/12/19 20:59 Last Admin: 11/12/19 20:01 Dose: 100 mg Documented by: Ondansetron HCl (Zofran) 4 mg IV Q6H PRN PRN Reason: Nausea Stop: 12/12/19 11:19 Polyethylene Glycol (Miralax Powder Packet) 17 gm PO DAILY PRN PRN Reason: Constipation Stop: 12/12/19 11:19 Rosuvastatin Calcium (Crestor) 10 mg PO [facility] Stop: 12/12/19 20:59 Last Admin: 11/12/19 19:59 Dose: 10 mg Documented by: Silver Sulfadiazine (Silvadene 1% 50gm) 1 appln TOP DAILY [facility] Stop: 12/12/19 11:29 Last Admin: 11/13/19 08:55 Dose: 1 appln Documented by: Vitamin D (Vitamin D3) 1,000 units PO [facility] Stop: 12/12/19 20:59 Last Admin: 11/12/19 19:59 Dose: 1,000 units Documented by: (1) Right knee sprain Encounter type: initial encounter Involved ligament of knee: unspecified ligament Qualified Code(s): S83.91XA - Sprain of unspecified site of right knee, initial encounter (2) Neutropenia Neutropenia type: unspecified Qualified Code(s): D70.9 - Neutropenia, unspecified
[2019-11-13] MEDS ORDERED: GLYCERIN ADULT 12 SUPP/BOX SUPP PR PRN (16:05)
[2019-11-13] MEDS: ROSUVASTATIN CALCIUM 10 MG TAB PO SCH (20:28)
[2019-11-13] MEDS: CHOLECALCIFEROL 1,000 UNITS 25 MCG TAB PO SCH (20:29)
[2019-11-13] MEDS: LOSARTAN POTASSIUM 50 MG TAB PO SCH (21:34)
[2019-11-14] MEDS: LEVOTHYROXINE SODIUM 88 MCG TABLET PO SCH (05:21)
[2019-11-14] MEDS: ACETAMINOPHEN 500 MG TAB PO SCH ×3 (05:46→21:01)
[2019-11-14 07:09] LABS: Hemoglobin 10.5 g/dL (12.0-16.0); Mean Corpuscular Hemoglobin 25.2 pg (25-34); Mean Corpuscular Hgb Conc 31.8 g/dL (32-36); Mean Corpuscular Volume 79.1 fL (80-100); Mean Platelet Volume 9.4 fL (7.4-10.4); Platelet Count 124 K/uL (130-400); RDW Coefficient of Variation 17.8 % (11.5-14.5); RDW Standard Deviation 51.8 fL (36.4-46.3); Red Blood Count 4.17 M/uL (4.2-5.4); White Blood Count 1.02 K/uL (4.8-10.8)
[2019-11-14 07:35] LABS: Eosinophils # (auto) 0.06 K/uL (0-0.5); Eosinophils % (auto) 5.9 %; Giant Platelets 1+; Lymphocytes # (auto) 0.34 K/uL (1.2-3.4); Lymphocytes % (auto) 33.3 %; Monocytes % (auto) 29.4 %; Neutrophils # (auto) 0.32 K/uL (1.4-6.5); Neutrophils % (auto) 31.4 %; Ovalocytes 2+
[2019-11-14] MEDS: SILVER SULFADIAZINE 1% CR 50 GM JAR TOP SCH (10:17)
[2019-11-14] MEDS ORDERED: hydroCHLOROthiazide 25 MG TAB PO STA (10:21)
[2019-11-14] MEDS: GABAPENTIN 100 MG CAP PO SCH ×4 (10:23→21:01)
[2019-11-14] MEDS: CLOPIDOGREL BISULFATE 75 MG TAB PO SCH (10:23)
[2019-11-14] MEDS: ASPIRIN 81 MG ECTAB PO SCH (10:23)
[2019-11-14] MEDS: NITROFURANTOIN MONOHYDRATE 100 MG CAP PO SCH ×2 (11:45→21:01)
[2019-11-14] MEDS: ENOXAPARIN INJ 40 MG/0.4 ML SYR SQ SCH (13:29)
--- NOTE | 2019-11-14 18:47 | Hospitalist Progress Note ---
Date of Service November 14, 2019 Assessment & Plan (1) Right knee sprain: traumatic pinch from her home power recliner. Continues to progress, denies pain, ROM is improved, however, per PT she will need inpatient rehab. Working on this transition now. (2) Ambulatory dysfunction: as a result of R knee sprain and prior left sided leg weakness. (3) UTI (urinary tract infection): Lal sensitive e coli. Ceftriaxone changed to nitrofurantoin. 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 She remains afebrile. Likely the result of recent UTI in setting of chronic leukopenia. She expresses fear of a bone marrow biopsy as was the recommendation from Dr. Yang in Oncology. She has a consult request in for a second opinion for Dr. Bobo Hays at [facility]. cont abx, Cont neutropenic precautions. (5) History of CVA (cerebrovascular accident): Left hemiparesis as a residual deficit complicates her ability to mobilize well independently. Cont aspirin, plavix and crestor for secondary prevention of stroke. (6) HTN (hypertension): Continue losartan HS, slightly elevated. Cont to monitor closely. Initially considered the addition of HCTZ and then repeat BP reading was 111 systolic. (7) Hypothyroidism: cont Synthroid per home regimen. (8) DVT prophylaxis: Lovenox Full Code Dispo-to rehab pending authorization. Carmen Hernández DO [facility] Hospitalist Admission and Anticipated Discharge Date Admission Date: November 14, 2019 Subjective feeling well today didn't geet much sleep last night improvement in the ROM of Right knee Denies pain requesting a script for bedside commode. Review of Systems Review of Systems: All systems reviewed & are unremarkable except as noted in Subjective Physical Exam Physical Exam: CONSTITUTIONAL: WNWD, vitals as above, generally well-appearing, [place] EYES: normal conjunctivae, no scleral icterus ENT: external ear and nose normal, MMM RESPIRATORY: clear to auscultation bilaterally, no crackles, rales or wheezes, normal respiratory effort CARDIOVASCULAR: regular rate and rhythm, S1 and 2 heard without murmurs, gallops or rubs, no JVD, no peripheral edema GASTROINTESTINAL: soft, nontender, nondistended MUSCULOSKELETAL: Moving her right knee more today but still limited ROM and some guarding to passive movement. SKIN: warm and dry NEUROLOGIC: CN 2-12 grossly intact, normal cognition, normal speech, no gross focal deficits. PSYCHIATRIC: alert cooperative and oriented to person, place and time. Results & Data Results & Data ([facility]) Vital Signs (Past 12 Hours) Vital Signs Temp Pulse Resp BP BP Pulse Ox 11/14/19 15:35 36.6 C 72 16 155/82 H 97 11/14/19 11:43 111/68 11/14/19 07:01 36.6 C 69 18 162/78 H 95 Laboratory Results Short CBC 11/14/19 Range/Units 06:37 WBC 1.02 L (4.8-10.8) K/uL Hgb 10.5 L (12.0-16.0) g/dL Hct 33.0 L (37-47) % Plt Count 124 L (130-400) K/uL Medications Administered Current Inpatient Medications Acetaminophen (Tylenol) 1,000 mg PO Q8H [facility] Stop: 12/12/19 12:59 Last Admin: 11/14/19 13:27 Dose: 1,000 mg Documented by: Aspirin (Ecotrin Ectab) 81 mg PO QAM [facility] Stop: 12/13/19 08:59 Last Admin: 11/14/19 10:23 Dose: 81 mg Documented by: Clopidogrel Bisulfate (Plavix) 75 mg PO QAM [facility] Stop: 12/13/19 08:59 Last Admin: 11/14/19 10:23 Dose: 75 mg Documented by: Enoxaparin Sodium (Lovenox) 40 mg SQ Q24H [facility] Stop: 12/12/19 13:59 Last Admin: 11/14/19 13:29 Dose: 40 mg Documented by: Fluticasone/Vilanterol (Breo Ellipta 200/25 Mcg Inh) 1 puffs INH DAILY PRN PRN Reason: SHORTNESS OF BREATH Stop: 12/12/19 11:33 Last Admin: 11/14/19 18:14 Dose: 1 puffs Documented by: Gabapentin (Neurontin) 100 mg PO QID [facility] Stop: 12/12/19 12:59 Last Admin: 11/14/19 17:39 Dose: 100 mg Documented by: Glycerin (Glycerin Adult) 1 supp ME DAILY PRN PRN Reason: Constipation Stop: 12/13/19 16:04 Hydrochlorothiazide (Hctz) 12.5 mg PO QAM [facility] Stop: 12/15/19 08:59 Levothyroxine Sodium (Synthroid) 88 mcg PO [facility]@0630 [facility] Stop: 12/13/19 06:29 Last Admin: 11/14/19 05:21 Dose: 88 mcg Documented by: Losartan Potassium (Cozaar) 100 mg PO [facility] Stop: 12/12/19 20:59 Last Admin: 11/13/19 21:34 Dose: 100 mg Documented by: Nitrofurantoin Macrocrystals (Macrobid) 100 mg PO BID [facility] Stop: 11/19/19 10:29 Last Admin: 11/14/19 11:45 Dose: 100 mg Documented by: Ondansetron HCl (Zofran) 4 mg IV Q6H PRN PRN Reason: Nausea Stop: 12/12/19 11:19 Polyethylene Glycol (Miralax Powder Packet) 17 gm PO DAILY PRN PRN Reason: Constipation Stop: 12/12/19 11:19 Rosuvastatin Calcium (Crestor) 10 mg PO [facility] Stop: 12/12/19 20:59 Last Admin: 11/13/19 20:28 Dose: 10 mg Documented by: Silver Sulfadiazine (Silvadene 1% 50gm) 1 appln TOP DAILY [facility] Stop: 12/12/19 11:29 Last Admin: 11/14/19 10:17 Dose: 1 appln Documented by: Vitamin D (Vitamin D3) 1,000 units PO [facility] Stop: 12/12/19 20:59 Last Admin: 11/13/19 20:29 Dose: 1,000 units Documented by: (1) Right knee sprain Encounter type: initial encounter Involved ligament of knee: unspecified ligament Qualified Code(s): S83.91XA - Sprain of unspecified site of right knee, initial encounter (2) Neutropenia Neutropenia type: unspecified Qualified Code(s): D70.9 - Neutropenia, unspecified
[2019-11-14] MEDS: LOSARTAN POTASSIUM 50 MG TAB PO SCH (21:01)
[2019-11-14] MEDS: CHOLECALCIFEROL 1,000 UNITS 25 MCG TAB PO SCH (21:01)
[2019-11-14] MEDS: ROSUVASTATIN CALCIUM 10 MG TAB PO SCH (21:02)
[2019-11-15] MEDS: ACETAMINOPHEN 500 MG TAB PO SCH ×3 (05:02→20:35)
[2019-11-15] MEDS: LEVOTHYROXINE SODIUM 88 MCG TABLET PO SCH (05:55)
[2019-11-15 06:01] LABS: Hemoglobin 10.6 g/dL (12.0-16.0); Mean Corpuscular Hemoglobin 25.7 pg (25-34); Mean Corpuscular Hgb Conc 32.1 g/dL (32-36); Mean Corpuscular Volume 79.9 fL (80-100); Mean Platelet Volume 9.2 fL (7.4-10.4); Platelet Count 137 K/uL (130-400); RDW Standard Deviation 52.8 fL (36.4-46.3); Red Blood Count 4.13 M/uL (4.2-5.4); White Blood Count 1.05 K/uL (4.8-10.8)
[2019-11-15 06:23] LABS: Basophils # (auto) 0.01 K/uL (0-0.2); Eosinophils # (auto) 0.08 K/uL (0-0.5); Eosinophils % (auto) 7.6 %; Giant Platelets 1+; Lymphocytes # (auto) 0.38 K/uL (1.2-3.4); Lymphocytes % (auto) 36.2 %; Monocytes # (auto) 0.28 K/uL (0.11-0.59); Monocytes % (auto) 26.7 %; Neutrophils % (auto) 28.5 %; Ovalocytes 2+
[2019-11-15] MEDS: GABAPENTIN 100 MG CAP PO SCH ×4 (08:54→20:36)
[2019-11-15] MEDS: NITROFURANTOIN MONOHYDRATE 100 MG CAP PO SCH ×2 (08:54→20:36)
[2019-11-15] MEDS: ASPIRIN 81 MG ECTAB PO SCH (08:54)
[2019-11-15] MEDS: SILVER SULFADIAZINE 1% CR 50 GM JAR TOP SCH (08:54)
[2019-11-15] MEDS: CLOPIDOGREL BISULFATE 75 MG TAB PO SCH (08:54)
[2019-11-15] MEDS ORDERED: hydroCHLOROthiazide 25 MG TAB PO SCH (09:00)
--- NOTE | 2019-11-15 10:54 | CT Scan Report ---
CT chest wo con CT DOSE: 302.25 mGy.cm CLINICAL HISTORY: 84 years-old Female with moved and heard pop in chest, now with rib pain. Acute ch est and rib pain TECHNIQUE: Multiaxial CT images of the chest were performed without contrast. A dose lowering techni que was utilized adhering to the principles of ALARA. COMPARISON: Chest radiograph 08/14/2015 FINDINGS: Mildly motion degraded exam. There are a few prominent mediastinal and axillary chain lymph nodes pre sent measuring up to 9 mm which are nonspecific. Moderate cardiomegaly. Trace pericardial effusion. E xtensive coronary artery calcifications. Papillary muscle and aortic annular calcifications also note d. Mild fusiform dilation of the ascending thoracic aorta, 4.1 x 4.1 cm. Calcified plaque of the thor acic aorta. Mild dilation of the main pulmonary artery may reflect pulmonary artery hypertension. Trace pleural effusions. Respiratory motion artifact limits evaluation of the lung parenchyma. No pne umothorax or overt pulmonary edema. No airspace consolidation typical for pneumonia. Mild linear subs egmental bibasilar atelectasis. Subcentimeter calcified granuloma of the right lung apex. 4 mm solid nodule of the inferior segment lingula on image 180 series 4. 4 mm solid nodule the basal left lower lobe, image 162 series 4. 3 mm solid nodule of the right lung apex, image 53 series 4. There is sugge stion of a few additional solid pulmonary nodules bilaterally measuring up to 3-4 mm (please see book garcia). Central airways appear patent. Hepatosplenomegaly. Probable cyst of the superior pole left kidney measures over 5 cm. Soft tissues a re unremarkable. Degenerative changes are noted within the shoulders and spine. Demineralized appeara nce of the bones. Multiple healed remote left-sided rib fractures. There is an age-indeterminate ante rior superior endplate compression deformity of at least 25% at the T4 and T5 levels with partially i billy superior endplate compression deformity at L1. No acute fracture line or retropulsion. IMPRESSION: 1. Trace pleural effusions with minimal bibasilar atelectasis. 2. Cardiomegaly without pulmonary edema. 3. Fusiform dilation of the ascending thoracic aorta, 4.1 x 4.1 cm. 4. Hepatosplenomegaly. 5. Age-indeterminate T4, T5 and L1 compression deformities are favored to be on a chronic basis. Hernando elate with clinical exam findings. ACT 112: Negative or not required by law. Electronically signed by: Santy Gonzalez M.D. 11/15/2019 10:53 AM
[2019-11-15] MEDS: ENOXAPARIN INJ 40 MG/0.4 ML SYR SQ SCH (13:38)
[2019-11-15] MEDS: ROSUVASTATIN CALCIUM 10 MG TAB PO SCH (20:36)
[2019-11-15] MEDS: LOSARTAN POTASSIUM 50 MG TAB PO SCH (20:36)
[2019-11-15] MEDS: CHOLECALCIFEROL 1,000 UNITS 25 MCG TAB PO SCH (20:38)
--- NOTE | 2019-11-15 22:02 | Hospitalist Progress Note ---
Date of Service November 15, 2019 Assessment & Plan (1) Chest wall pain: As a result of a strain during physical transition during the hospital today. CT reveals no evidence of fracture. Lidocaine patch for comfort. (2) Right knee sprain: traumatic pinch from her home power recliner. Continues to progress, denies pain, ROM is improved, however, per PT she will need inpatient rehab. Working on this transition now. (3) Ambulatory dysfunction: as a result of R knee sprain and prior left sided leg weakness. Continues to work with PT and OT (4) UTI (urinary tract infection): Lal sensitive e coli. Ceftriaxone changed to nitrofurantoin. (5) Neutropenia: History of leukopenia and neutropenia for the past 3 years, per patient and chart review ANC has decreased from 320 to 300 . She remains afebrile. Likely the result of recent UTI in setting of chronic leukopenia. She expresses fear of a bone marrow biopsy as was the recommendation from Dr. Yang in Oncology. She has a consult request in for a second opinion for Dr. Bobo Hays at [facility] Hematology. cont abx, Cont neutropenic precautions. (6) Thoracic aortic aneurysm (TAA): Incidental finding on CT scan. Re-evaluate with CT scan in 6 months to ensure this isn't enlarging. This was discussed with the patient who verbalized understanding. 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 Cont aspirin, plavix and crestor for secondary prevention of stroke. (8) HTN (hypertension): Cont losartan per home regimen, BP at goal. (9) Hypothyroidism: cont Synthroid per home regimen. (10) DVT prophylaxis: Lovenox Full Code Dispo-to rehab pending authorization. Carmen Hernández DO [facility] Hospitalist Admission and Anticipated Discharge Date Admission Date: November 14, 2019 Subjective Nurse was moving her today and they heard a pop with subsequent pain in her lateral left chest wall. she can feel this when taking a deep breath CT chest reveals no evidence of fracture Otherwise doing well Denies pain in her right leg continues to work with physical therapy Review of Systems Review of Systems: All systems reviewed & are unremarkable except as noted in Subjective Physical Exam Physical Exam: CONSTITUTIONAL: WNWD, vitals as above, generally well- appearing, [place] EYES: normal conjunctivae, no scleral icterus ENT: external ear and nose normal, MMM RESPIRATORY: clear to auscultation bilaterally, no crackles, rales or wheezes, normal respiratory effort CARDIOVASCULAR: regular rate and rhythm, S1 and 2 heard without murmurs, gallops or rubs, no JVD, no peripheral edema GASTROINTESTINAL: soft, nontender, nondistended MUSCULOSKELETAL: Moving her right knee more today wiht improved ROM, There is TTP of lateral intercostals in the mid axillary line on the left chest wall. SKIN: warm and dry NEUROLOGIC: CN 2-12 grossly intact, normal cognition, normal speech, no gross focal deficits. PSYCHIATRIC: alert cooperative and oriented to person, place and time. Results & Data Results & Data ([facility]) Vital Signs (Past 12 Hours) Vital Signs Temp Pulse Resp BP Pulse Ox 11/15/19 16:21 36.3 C L 74 20 136/87 99 Laboratory Results Short CBC 11/15/19 Range/Units 05:27 WBC 1.05 L (4.8-10.8) K/uL Hgb 10.6 L (12.0-16.0) g/dL Hct 33.0 L (37-47) % Plt Count 137 (130-400) K/uL Diagnostic Findings CT chest wo con CT DOSE: 302.25 mGy.cm CLINICAL HISTORY: 84 years-old Female with moved and heard pop in chest, now with rib pain. Acute chest and rib pain TECHNIQUE: Multiaxial CT images of the chest were performed without contrast. A dose lowering technique was utilized adhering to the principles of ALARA. COMPARISON: Chest radiograph 08/14/2015 FINDINGS: Mildly motion degraded exam. There are a few prominent mediastinal and axillary chain lymph nodes present measuring up to 9 mm which are nonspecific. Moderate cardiomegaly. Trace pericardial effusion. Extensive coronary artery calcifications. Papillary muscle and aortic annular calcifications also noted. Mild fusiform dilation of the ascending thoracic aorta, 4.1 x 4.1 cm. Calcified plaque of the thoracic aorta. Mild dilation of the main pulmonary artery may reflect pulmonary artery hypertension. Trace pleural effusions. Respiratory motion artifact limits evaluation of the lung parenchyma. No pneumothorax or overt pulmonary edema. No airspace consolidation typical for pneumonia. Mild linear subsegmental bibasilar atelectasis. Subcentimeter calcified granuloma of the right lung apex. 4 mm so lid nodule of the inferior segment lingula on image 180 series 4. 4 mm solid nodule the basal left lower lobe, image 162 series 4. 3 mm solid nodule of the right lung apex, image 53 series 4. There is suggestion of a few additional solid pulmonary nodules bilaterally measuring up to 3-4 mm (please see bookmarks). Central airways appear patent. Hepatosplenomegaly. Probable cyst of the superior pole left kidney measures over 5 cm. Soft tissues are unremarkable. Degenerative changes are noted within the shoulders and spine. Demineralized appearance of the bones. Multiple healed remote left-sided rib fractures. There is an age-indeterminate anterior superior endplate compression deformity of at least 25% at the T4 and T5 levels with partially imaged superior endplate compression deformity at L1. No acute fracture line or retropulsion. IMPRESSION: 1. Trace pleural effusions with minimal bibasilar atelectasis. 2. Cardiomegaly without pulmonary edema. 3. Fusiform dilation of the ascending thoracic aorta, 4.1 x 4.1 cm. 4. Hepatosplenomegaly. 5. Age-indeterminate T4, T5 and L1 compression deformities are favored to be on a chronic basis. Correlate with clinical exam findings. Medications Administered Current Inpatient Medications Acetaminophen (Tylenol) 1,000 mg PO Q8H [facility] Stop: 12/12/19 12:59 Last Admin: 11/15/19 20:35 Dose: 1,000 mg Documented by: Aspirin (Ecotrin Ectab) 81 mg PO QAM [facility] Stop: 12/13/19 08:59 Last Admin: 11/15/19 08:54 Dose: 81 mg Documented by: Clopidogrel Bisulfate (Plavix) 75 mg PO QAM [facility] Stop: 12/13/19 08:59 Last Admin: 11/15/19 08:54 Dose: 75 mg Documented by: Enoxaparin Sodium (Lovenox) 40 mg SQ Q24H [facility] Stop: 12/12/19 13:59 Last Admin: 11/15/19 13:38 Dose: 40 mg Documented by: Fluticasone/Vilanterol (Breo Ellipta 200/25 Mcg Inh) 1 puffs INH DAILY PRN PRN Reason: SHORTNESS OF BREATH Stop: 12/12/19 11:33 Last Admin: 11/14/19 18:14 Dose: 1 puffs Documented by: Gabapentin (Neurontin) 100 mg PO QID [facility] Stop: 12/12/19 12:59 Last Admin: 11/15/19 20:36 Dose: 100 mg Documented by: Glycerin (Glycerin Adult) 1 supp MD DAILY PRN PRN Reason: Constipation Stop: 12/13/19 16:04 Levothyroxine Sodium (Synthroid) 88 mcg PO [email or web address]@[id number] [facility] Stop: 12/13/19 06:29 Last Admin: 11/15/19 05:55 Dose: 88 mcg Documented by: Lidocaine (Lidoderm 5%) 1 patch TD [facility] Stop: 12/15/19 22:14 Losartan Potassium (Cozaar) 100 mg PO HS [facility] Stop: 12/12/19 20:59 Last Admin: 11/15/19 20:36 Dose: 100 mg Documented by: Miscellaneous (Remove Lidoderm Patch) 1 ea N/A DAILY [facility] Stop: 12/16/19 08:59 Nitrofurantoin Macrocrystals (Macrobid) 100 mg PO BID [facility] Stop: 11/19/19 10:29 Last Admin: 11/15/19 20:36 Dose: 100 mg Documented by: Ondansetron HCl (Zofran) 4 mg IV Q6H PRN PRN Reason: Nausea Stop: 12/12/19 11:19 Polyethylene Glycol (Miralax Powder Packet) 17 gm PO DAILY PRN PRN Reason: Constipation Stop: 12/12/19 11:19 Rosuvastatin Calcium (Crestor) 10 mg PO [facility] Stop: 12/12/19 20:59 Last Admin: 11/15/19 20:36 Dose: 10 mg Documented by: Silver Sulfadiazine (Silvadene 1% 50gm) 1 appln TOP DAILY [facility] Stop: 12/12/19 11:29 Last Admin: 11/15/19 08:54 Dose: 1 appln Documented by: Vitamin D (Vitamin D3) 1,000 units PO HS [facility] Stop: 12/12/19 20:59 Last Admin: 11/15/19 20:38 Dose: 1,000 units Documented by: (1) Right knee sprain Encounter type: initial encounter Involved ligament of knee: unspecified ligament Qualified Code(s): S83.91XA - Sprain of unspecified site of right knee, initial encounter (2) Neutropenia Neutropenia type: unspecified Qualified Code(s): D70.9 - Neutropenia, unspecified
[2019-11-15] MEDS: LIDOCAINE 5% 1 PATCH TD SCH (22:31)
[2019-11-16] MEDS: ACETAMINOPHEN 500 MG TAB PO SCH ×3 (05:39→20:28)
[2019-11-16] MEDS: LEVOTHYROXINE SODIUM 88 MCG TABLET PO SCH (05:39)
[2019-11-16 07:27] LABS: Hematocrit (blood only) 32.9 % (37-47); Hemoglobin 10.5 g/dL (12.0-16.0); Mean Corpuscular Hemoglobin 25.4 pg (25-34); Mean Corpuscular Hgb Conc 31.9 g/dL (32-36); Mean Corpuscular Volume 79.7 fL (80-100); Mean Platelet Volume 9.5 fL (7.4-10.4); Platelet Count 146 K/uL (130-400); RDW Coefficient of Variation 18.1 % (11.5-14.5); RDW Standard Deviation 52.2 fL (36.4-46.3); Red Blood Count 4.13 M/uL (4.2-5.4); White Blood Count 0.95 K/uL (4.8-10.8)
[2019-11-16 07:38] LABS: Eosinophils # (auto) 0.08 K/uL (0-0.5); Eosinophils % (auto) 8.4 %; Lymphocytes % (auto) 42.1 %; Monocytes # (auto) 0.21 K/uL (0.11-0.59); Monocytes % (auto) 22.1 %; Neutrophils # (auto) 0.26 K/uL (1.4-6.5); Neutrophils % (auto) 27.4 %; Ovalocytes 1+
[2019-11-16] MEDS: GABAPENTIN 100 MG CAP PO SCH ×4 (08:56→20:27)
[2019-11-16] MEDS: NITROFURANTOIN MONOHYDRATE 100 MG CAP PO SCH ×2 (08:56→20:25)
[2019-11-16] MEDS: SILVER SULFADIAZINE 1% CR 50 GM JAR TOP SCH (08:56)
[2019-11-16] MEDS: CLOPIDOGREL BISULFATE 75 MG TAB PO SCH (08:56)
[2019-11-16] MEDS: ASPIRIN 81 MG ECTAB PO SCH (08:56)
[2019-11-16] MEDS: ENOXAPARIN INJ 40 MG/0.4 ML SYR SQ SCH (13:34)
--- NOTE | 2019-11-16 18:54 | Hospitalist Progress Note ---
Date of Service November 16, 2019 Assessment & Plan (1) Right knee sprain: traumatic pinch from her home power recliner in setting of a UTI. Continues to progress, denies pain, ROM is improved, however, per PT she will need inpatient rehab. She has a h/o left sided hemiparesis after a stroke and is now dealing with a sprain on her right knee. She was functional prior to this, but has declined with her good leg impaired. She is motivated to improve and will benefit from an inpatient rehabilitation program. (2) Chest wall pain: As a result of a strain during physical transition during the hospital stay. CT reveals no evidence of fracture. Lidocaine patch for comfort. (3) Ambulatory dysfunction: as a result of R knee sprain and prior left sided leg weakness. Continues to work with PT and OT (4) UTI (urinary tract infection): Lal sensitive e coli. Ceftriaxone changed to nitrofurantoin. (5) Neutropenia: History of leukopenia and neutropenia for the past 3 years, per patient and chart review ANC remains<500 . She remains afebrile. Likely the result of recent UTI in setting of chronic leukopenia. She expresses fear of a bone marrow biopsy as was the recommendation from Dr. Yang in Oncology. She has a consult request in for a second opinion for Dr. Bobo Hays at [facility] Hematology. cont abx, Con t neutropenic precautions. (6) Thoracic aortic aneurysm (TAA): Incidental finding on CT scan. Re-evaluate with CT scan in 6 months to ensure this isn't enlarging. This was discussed with the patient who verbalized understanding. 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 Cont aspirin, plavix and crestor for secondary prevention of stroke. (8) HTN (hypertension): Cont losartan per home regimen, BP at goal. (9) Hypothyroidism: cont Synthroid per home regimen. (10) DVT prophylaxis: Lovenox Full Code Dispo-to rehab pending authorization. Carmen Hernández DO [facility] Hospitalist Admission and Anticipated Discharge Date Admission Date: November 14, 2019 Subjective Pt doing well today denies pain continues to work with PT tolerating PO I spoke with by phone while in the room with her Discussed the plan and he is in agreement. Review of Systems Review of Systems: All systems reviewed & are unremarkable except as noted in Subjective Physical Exam Physical Exam: CONSTITUTIONAL: WNWD, vitals as above, generally well- appearing, [place] EYES: normal conjunctivae, no scleral icterus ENT: external ear and nose normal, MMM RESPIRATORY: clear to auscultation bilaterally, no crackles, rales or wheezes, normal respiratory effort CARDIOVASCULAR: regular rate and rhythm, S1 and 2 heard without murmurs, gallops or rubs, no JVD, no peripheral edema GASTROINTESTINAL: soft, nontender, nondistended MUSCULOSKELETAL: Moving her right knee more today with improved/almost normal SKIN: warm and dry NEUROLOGIC: CN 2-12 grossly intact, normal cognition, normal speech, no gross focal deficits. PSYCHIATRIC: alert cooperative and oriented to person, place and time. Results & Data Results & Data ([facility]) Vital Signs (Past 12 Hours) Vital Signs Temp Pulse Resp BP BP Pulse Ox 11/16/19 16:55 37.1 C 81 18 127/83 95 11/16/19 07:50 36.7 C 65 16 165/97 H 96 Laboratory Results Short CBC 11/16/19 Range/Units 06:37 WBC 0.95 L* (4.8-10.8) K/uL Hgb 10.5 L (12.0-16.0) g/dL Hct 32.9 L (37-47) % Plt Count 146 (130-400) K/uL Medications Administered Current Inpatient Medications Acetaminophen (Tylenol) 1,000 mg PO Q8H [facility] Stop: 12/12/19 12:59 Last Admin: 11/16/19 13:34 Dose: Not Given Documented by: Aspirin (Ecotrin Ectab) 81 mg PO QAM [facility] Stop: 12/13/19 08:59 Last Admin: 11/16/19 08:56 Dose: 81 mg Documented by: Clopidogrel Bisulfate (Plavix) 75 mg PO QAM [facility] Stop: 12/13/19 08:59 Last Admin: 11/16/19 08:56 Dose: 75 mg Documented by: Enoxaparin Sodium (Lovenox) 40 mg SQ Q24H [facility] Stop: 12/12/19 13:59 Last Admin: 11/16/19 13:34 Dose: 40 mg Documented by: Fluticasone/Vilanterol (Breo Ellipta 200/25 Mcg Inh) 1 puffs INH DAILY PRN PRN Reason: SHORTNESS OF BREATH Stop: 12/12/19 11:33 Last Admin: 11/14/19 18:14 Dose: 1 puffs Documented by: Gabapentin (Neurontin) 100 mg PO QID [facility] Stop: 12/12/19 12:59 Last Admin: 11/16/19 17:57 Dose: 100 mg Documented by: Glycerin (Glycerin Adult) 1 supp [place] DAILY PRN PRN Reason: Constipation Stop: 12/13/19 16:04 Levothyroxine Sodium (Synthroid) 88 mcg PO [id number] [facility] Stop: 12/13/19 06:29 Last Admin: 11/16/19 05:39 Dose: 88 mcg Documented by: Lidocaine (Lidoderm 5%) 1 patch TD [facility] Stop: 12/15/19 22:14 Last Admin: 11/15/19 22:31 Dose: Not Given Documented by: Losartan Potassium (Cozaar) 100 mg PO [facility] Stop: 12/12/19 20:59 Last Admin: 11/15/19 20:36 Dose: 100 mg Documented by: Miscellaneous (Remove Lidoderm Patch) 1 ea N/A DAILY [facility] Stop: 12/16/19 08:59 Last Admin: 11/16/19 08:56 Dose: Not Given Documented by: Nitrofurantoin Macrocrystals (Macrobid) 100 mg PO BID [facility] Stop: 11/19/19 10:29 Last Admin: 11/16/19 08:56 Dose: 100 mg Documented by: Ondansetron HCl (Zofran) 4 mg IV Q6H PRN PRN Reason: Nausea Stop: 12/12/19 11:19 Polyethylene Glycol (Miralax Powder Packet) 17 gm PO DAILY PRN PRN Reason: Constipation Stop: 12/12/19 11:19 Rosuvastatin Calcium (Crestor) 10 mg PO [facility] Stop: 12/12/19 20:59 Last Admin: 11/15/19 20:36 Dose: 10 mg Documented by: Silver Sulfadiazine (Silvadene 1% 50gm) 1 appln TOP DAILY [facility] Stop: 12/12/19 11:29 Last Admin: 11/16/19 08:56 Dose: 1 appln Documented by: Vitamin D (Vitamin D3) 1,000 units PO [facility] Stop: 12/12/19 20:59 Last Admin: 11/15/19 20:38 Dose: 1,000 units Documented by: (1) Right knee sprain Encounter type: initial encounter Involved ligament of knee: unspecified ligament Qualified Code(s): S83.91XA - Sprain of unspecified site of right knee, initial encounter (2) Neutropenia Neutropenia type: unspecified Qualified Code(s): D70.9 - Neutropenia, unspec ified
[2019-11-16] MEDS: LOSARTAN POTASSIUM 50 MG TAB PO SCH (20:26)
[2019-11-16] MEDS: ROSUVASTATIN CALCIUM 10 MG TAB PO SCH (20:26)
[2019-11-16] MEDS: LIDOCAINE 5% 1 PATCH TD SCH (20:26)
[2019-11-16] MEDS: CHOLECALCIFEROL 1,000 UNITS 25 MCG TAB PO SCH (20:28)
[2019-11-17] MEDS: ACETAMINOPHEN 500 MG TAB PO SCH ×2 (04:19→14:09)
[2019-11-17] MEDS: LEVOTHYROXINE SODIUM 88 MCG TABLET PO SCH (04:19)
[2019-11-17 07:42] LABS: Hematocrit (blood only) 35.8 % (37-47); Mean Corpuscular Hemoglobin 24.9 pg (25-34); Mean Corpuscular Hgb Conc 30.7 g/dL (32-36); Mean Platelet Volume 9.1 fL (7.4-10.4); Platelet Count 155 K/uL (130-400); RDW Coefficient of Variation 18.3 % (11.5-14.5); RDW Standard Deviation 53.7 fL (36.4-46.3); Red Blood Count 4.42 M/uL (4.2-5.4); White Blood Count 1.03 K/uL (4.8-10.8)
[2019-11-17 08:10] LABS: Eosinophils % (auto) 9.7 %; Immature Granulocytes # (auto) 0.01 K/uL (0.00-0.02); Lymphocytes # (auto) 0.45 K/uL (1.2-3.4); Lymphocytes % (auto) 43.7 %; Monocytes # (auto) 0.19 K/uL (0.11-0.59); Monocytes % (auto) 18.4 %; Neutrophils # (auto) 0.28 K/uL (1.4-6.5); Neutrophils % (auto) 27.2 %; Ovalocytes 1+
[2019-11-17] MEDS: NITROFURANTOIN MONOHYDRATE 100 MG CAP PO SCH (10:13)
[2019-11-17] MEDS: GABAPENTIN 100 MG CAP PO SCH ×2 (10:14→14:09)
[2019-11-17] MEDS: CLOPIDOGREL BISULFATE 75 MG TAB PO SCH (10:14)
[2019-11-17] MEDS: ASPIRIN 81 MG ECTAB PO SCH (10:17)
[2019-11-17] MEDS: SILVER SULFADIAZINE 1% CR 50 GM JAR TOP SCH (10:20)
--- NOTE | 2019-11-17 13:02 | Discharge Summary ---
Date of Service November 17, 2019 Admission HPI Per Admitting Provider This is an 84-year-old female PMH of hypertension, history of CVA with residual left hemiparesis, dyslipidemia, asthma and other medical problems listed below who is presenting with right knee pain following an injury during the night. Patient was sleeping in her recliner last night and woke up around 2am with her right foot stuck between the side of the recliner and the foot rest. Called for help due to pain and they decided to come to ED in the morning for further evaluation. Patient already with some ambulatory dysfunction due to left hemiparesis from former stroke. Walks with walker and requires assistance from for ADLs such as dressing and showering. No right knee pain at rest but experiences pain with any type of movement or when she tries to bear weight on right leg. Did not use ice or take any medications prior to arrival. Denies any fever, chills, lightheadedness, headache, chest pain, shortness of breath, nausea, vomiting, abdominal pain, dysuria, diarrhea or constipation. Admission Exam Per Admitting Provider General Appearance: WD/WN, vitals as above, NAD, sitting up in bed, pleasant, conversing easily Head: normocephalic, atraumatic Eyes: normal inspection, PERRL, conjunctivae normal, anicteric sclerae ENT: hard of hearing, external ear and nose normal, oropharynx normal Neck: trachea midline, no thyromegaly normal visual inspection Respiratory: normal respiratory effort, lungs clear to auscultation, no wheeze, rales, rhonchi. Normal insp/exp effort, no accessory muscle use Cardiovascular: regular rate, rhythm, no murmur, normal peripheral pulses. Vessels: no JVD Chest: normal inspection of chest Abdomen/GI: normal bowel sounds, soft, nontender, no hepatosplenomegaly Extremities/Musculoskeletal: no cyanosis or clubbing, + R knee with edema and reduced ROM 2/2 pain along medial aspect. No numbness or paresthesias distal RLE. 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 Discharge Exam CONSTITUTIONAL: WNWD, vitals as above, generally well-appearing, LITTLE SHELL TRIBE EYES: normal conjunctivae, no scleral icterus ENT: external ear and nose normal, MMM RESPIRATORY: clear to auscultation bilaterally, no crackles, rales or wheezes, normal respiratory effort CARDIOVASCULAR: regular rate and rhythm, S1 and 2 heard without murmurs, gallops or rubs, no JVD, no peripheral edema GASTROINTESTINAL: soft, nontender, nondistended MUSCULOSKELETAL: Moving her right knee more today with improved/almost normal SKIN: warm and dry NEUROLOGIC: CN 2-12 grossly intact, normal cognition, normal speech, no gross focal deficits. PSYCHIATRIC: alert cooperative and oriented to person, place and time. Discharge Data Allergies Allergy/AdvReac Type Severity Reaction Status Date / Time LNIH Inhibitors Allergy Unknown UNK Verified 11/12/19 07:42 aminophylline Allergy Unknown Verified 11/12/19 07:42 amoxicillin Allergy Unknown SWELLING Verified 11/12/19 07:42 OF HANDS Beta-Blockers Allergy Unknown UNK Verified 11/12/19 07:42 (Beta-Adrenergic Bloc Penicillins Allergy Unknown Verified 11/12/19 07:42 Consultations 11/12/19 09:03 ED Decision to Admit Stat 11/12/19 11:20 Consult Case Management - Discharge Planning Routine Ordered Studies 11/15/19 11:02 CT chest wo con Urgent Hospital Course (1) Right knee sprain: traumatic pinch from her home power recliner in setting of a UTI. Continues to progress, denies pain, ROM is improved, however, per PT she will need inpatient rehab. She has a h/o left sided hemiparesis after a stroke and is now dealing with a sprain on her right knee. She was functional prior to this, but has declined with her good leg impaired. She is motivated to improve and will benefit from an inpatient rehabilitation program. Sent to [facility] at time of discharge. (2) Chest wall pain: As a result of a strain during physical transition during the hospital stay. CT reveals no evidence of fracture. Lidocaine patch for comfort. (3) Ambulatory dysfunction: as a result of R knee sprain and prior left sided leg weakness. Inpatient rehab transfer at discharge. (4) UTI (urinary tract infection): 2/2 Lal sensitive e coli. Ceftriaxone changed to nitrofurantoin to complete the course. She is asymptomatic. (5) Neutropenia: History of leukopenia and neutropenia for the past 3 years, per patient and chart review ANC remains<500 . She remains afebrile. Likely the result of recent UTI in setting of chronic leukopenia. She expresses fear of a bone marrow biopsy as was the recommendation from Dr. Yang in Oncology. She has a consult request in for a second opinion for Dr. Kramer at [facility]. She remains neutropenic despite treatment of this infection with an ANC in the 200s. She remained on neutropenic precautions which was recommended at the receiving facility. It was explained to her what that meant and she verbalized her understanding of her increased risk of infection. Close Hematology follow-up is recommended in the next 1-2 weeks. (6) Thoracic aortic aneurysm (TAA): Incidental finding on CT scan. Re-evaluate with CT scan in 6 months to ensure this isn't enlarging. This was discussed with the patient who verbalized understanding that this will be ordered/tracked by her PCP. (7) History of CVA (cerebrovascular accident): REsulting in a chronic Left hemiparesis as a residual deficit complicating her ability to mobilize well independently. Cont aspirin, plavix and crestor for secondary prevention of stroke per home regimen. (8) HTN (hypertension): Cont losartan per home regimen, BP at goal. (9) Hypothyroidism: cont Synthroid per home regimen. At time of discharge she was mentating at baseline, hemodynamically stable and remained afebrile the entire hospitalization. She was oxygenating well on room air. She was sent to inpatient rehab at [facility] in stable condition. Close primary care follow-up was recommended. I did discuss the plan via telephone with her prior to discharge. All questions were answered. 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 It is recommended that you follow-up with your primary care provider (PCP) within 1-2 weeks of hospital discharge to ensure you are still doing well after discharge. Topics to discuss include the chronically low white blood cell (WBC) count and how to manage this moving forward. Also, important would be a reassessment of your chest wall pain to ensure this is improved. You will need to have a CBC WITH DIFFERENTIAL drawn again in one week to re- evaluate the WBC count. This information should be faxed to your PCP's office. You were found to have a thoracic aortic aneurysm on imaging performed while you were hospitalized. Please discuss with your PCP when would be appropriate to re-image this, and ensure it is not enlarging. Ideally, it is recommended that you see Dr. Wesley Kramer with [facility] for an opinion. Your WBC count is very low to the point you are at higher risk for infection. It is strongly recommended that you are isolated in your own room at the receiving facility, and that any staff who interacts with you cleans their hands well. It is also recommended that anyone around you wear a mask to protect you from pathogens circulating in the community. It was a pleasure taking care of you! Please call if you have any questions or problems. You can reach a [facility] hospitalist on duty at [facility] 24 hours a day by calling [phone]. Take care of yourself. Carmen Hernández, DO [facility] Hospitalist Pending Studies at Discharge: No Stand-Alone Forms: My [facility] Skilled Items Patient informed of condition?: Yes DNR: No Discharge Level of Care: Acute rehab Communicable Disease: No Discharge Prognosis: Improving Lines: None Urinary Catheter: No Medications and DC Order Prescriptions: Continued silver sulfadiazine 1 % cream 1 appln topical .COMPLEX RF: 0 clopidogrel 75 mg tablet 75 mg PO QAM RF: 0 fluticasone propion-salmeterol 250-50 mcg/dose blister with device 1 puffs inhalation DAILY PRN (Reason: Shortness Of Breath) RF: 0 aspirin 81 mg Tablet,Delayed Release (Dr/Ec) 81 mg PO QAM RF: 0 levothyroxine 88 mcg tablet 88 mcg PO MOTUWETHFRSA RF: 0 gabapentin 100 mg capsule 100 mg PO QID RF: 0 losartan 100 mg tablet 100 mg PO HS RF: 0 rosuvastatin 10 mg tablet 10 mg PO HS RF: 0 cholecalciferol (vitamin D3) [Vitamin D3] 25 mcg (1,000 unit) Tablet 25 mcg PO HS RF: 0 Discharge Orders: Discharge Order (Routine); Ordered 11/17/19 Ordered By: Carmen Hernández Admission Data Admit Date/Time: 11/12/19 09:14 Attending Provider: Carmen Hernández Admit Provider: Carmen Hernández Primary Care Provider: Bulmaro Forbes Other Providers: Carmen Hernández ; Es Linda ; Es Al[facility] ; [place] Other Interventions: Discharge Summary Assessment (RN) Last Done: 11/17/19 14:08 DC Date/Time DO NOT enter until pt leaves facility: 11/17/19 14:41
== END 2019-11-17 14:41 | DRG 563 ==
LOC: 2N 06:35 → ED 06:35 → 2N 10:54 → 3W 11-16 19:49

== ENCOUNTER 2020-09-06 11:30 | Inpatient (IN) ==
[2020-09-06] MEDS ORDERED: METOPROLOL TARTRATE 1 MG/ML VIAL IV STA ×2 (12:59→14:30)
[2020-09-06] MEDS ORDERED: SODIUM CHLORIDE 0.9% 1000ML 1,000 ML IV SCH (13:00)
[2020-09-06] MEDS ORDERED: dilTIAZem HCl 5 MG/ML 5 ML VIAL IV STA (13:00)
[2020-09-06] MEDS ORDERED: ACETAMINOPHEN 500 MG TAB PO STA (13:01)
--- NOTE | 2020-09-06 13:22 | XRay Report ---
XR chest 1V portable HISTORY: 85 years-old Female weakness acute weakness COMPARISON: Chest CT 11/15/2019, chest radiograph 08/14/2015 TECHNIQUE: Portable AP view of the chest FINDINGS: Cardiac silhouette is enlarged. Calcific plaque of the thoracic aorta. Bilateral reticular opacities are new/progressed from comparison. No pneumothorax. Small layering pleural effusions with asymmetric left lung base opacities. Degenerative changes of the shoulders and spine. IMPRESSION: 1. Cardiomegaly with vascular congestion and reticular opacities suggestive of pulmonary edema. 2. Small pleural effusions. 3. Asymmetric left lung base opacities suggestive of atelectasis versus pneumonia. ACT 112: Negative or not required by law. The above report was generated using voice recognition software. It may contain grammatical, syntax o r spelling errors. Electronically signed by: Darci Gonzalez M.D. 09/06/2020 1:20 PM
[2020-09-06 13:50] LABS: Hematocrit (blood only) 37.1 % (37-47); Hemoglobin 11.5 g/dL (12.0-16.0); Mean Corpuscular Hemoglobin 25.5 pg (25-34); Mean Corpuscular Volume 82.3 fL (80-100); Mean Platelet Volume 9.5 fL (7.4-10.4); Platelet Count 149 K/uL (130-400); RDW Coefficient of Variation 19.2 % (11.5-14.5); RDW Standard Deviation 57.3 fL (36.4-46.3); Red Blood Count 4.51 M/uL (4.2-5.4); White Blood Count 1.43 K/uL (4.8-10.8)
[2020-09-06 13:51] LABS: Appearance Urine Cloudy (Clear); Bacteria Urine Automated 3+ (Negative); Bilirubin Urine Negative (Negative); Blood Urine Negative (Negative); Color Urine Yellow; Glucose Urine UA Negative (Negative); Ketones Urine Negative (Negative); Leukocyte Esterase Urine 2+ (Negative); Nitrite Urine Positive (Negative); Protein Urine Negative (Negative); RBC Urine Automated 0-4 /hpf (0-4); Specific Gravity Urine 1.012 (1.000-1.030); Urobilinogen Urine Negative (Negative)
[2020-09-06 13:59] LABS: INR 1.1 (0.9-1.1); Prothrombin Time 11.2 Seconds (9.0-12.0)
[2020-09-06 14:07] LABS: Albumin Level 3.9 gm/dl (3.4-5.0); BUN Creatinine Ratio 17.5 (10-20); Calcium 10.8 mg/dl (8.5-10.1); Est GFR (African American) 56.1 ml/min; Est GFR (Non-African American) 48.4 ml/min; Magnesium 2.4 mg/dl (1.8-2.4); Potassium 3.4 mmol/L (3.5-5.1)
[2020-09-06 14:18] LABS: Albumin Globulin Ratio 1.7 (0.9-2); Bilirubin,Total 1.1 mg/dl (0.2-1); Globulin 2.4 gm/dl (2.5-4.0); Thyroid Stimulating Hormone 3.52 uIu/ml (0.300-4.500); Total Protein 6.3 gm/dl (6.4-8.2); Troponin I 0.028 ng/ml (0-0.045)
[2020-09-06 14:22] LABS: Basophils # (auto) 0.01 K/uL (0-0.2); Basophils % (auto) 0.7 %; Eosinophils # (auto) 0.02 K/uL (0-0.5); Eosinophils % (auto) 1.4 %; Lymphocytes # (auto) 0.45 K/uL (1.2-3.4); Lymphocytes % (auto) 31.5 %; Monocytes # (auto) 0.35 K/uL (0.11-0.59); Monocytes % (auto) 24.5 %; Neutrophils % (auto) 41.9 %; Ovalocytes 1+
[2020-09-06] MEDS ORDERED: cefTRIAXone SODIUM 1,000 MG/50 ML BAG IV STA (14:32)
[2020-09-06] MEDS ORDERED: FUROSEMIDE 40 MG/4 ML VIAL IV STA (14:34)
[2020-09-06] MEDS ORDERED: POTASSIUM CHLORIDE CRTAB 20 MEQ TABCR PO STA (14:34)
[2020-09-06] MEDS ORDERED: OPTIRAY 350 500ml IV ONE (14:42)
--- NOTE | 2020-09-06 14:46 | XRay Report ---
RIGHT SHOULDER 3 VIEWS CLINICAL HISTORY: Right shoulder injury. FINDINGS: 3 views of the right shoulder are obtained. No prior studies are available for comparison a t the time of dictation. The skeletal structures are osteopenic. There is a nondisplaced fracture of the distal right clavicle with overlying soft tissue edema. No additional fracture is seen at the anisa ulder joint. There is no dislocation. Mild productive degenerative change is seen at the acromioclavi cular joint. The glenohumeral articulation is maintained. Degenerative sclerosis is noted in the grea ter tuberosity of the humeral head. The heart is enlarged noting atherosclerotic calcification of the thoracic aorta. There is pulmonary vascular congestion. IMPRESSION: 1. There is a nondisplaced fracture of the distal right clavicle. 2. No additional fracture is identified at the shoulder joint and there is no dislocation. 3. Cardiomegaly with evidence of congestive failure. Electronically signed by: Paul Tinoco M.D. 09/06/2020 2:45 PM
--- NOTE | 2020-09-06 15:12 | History & Physical Report ---
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 In setting of A fib with RVR CXR with cardiomegaly with vascular congestion and reticular opacities suggestive of pulmonary edema. Small pleural effusions proBNP pending. Renal function at baseline. Initial troponin wnl at 0.028 Initially given IV fluids in ED that were discontinued. Just received 40mg IV Lasix x 1 and will plan to continue with 40mg IV Lasix daily Strict I&Os, daily weights, zambrano catheter placed TTE ordered (2) Atrial fibrillation with RVR: Presented with A fib with RVR at 108 bpm Given IV Lopressor 5mg x 1 with improvement to 88 bpm Cardiology consulted, recommend holding off beta cristobal currently since rate controlled and monitoring overnight and determine whether AV cruzito blocking agents are necessary pending review Poor candidate for rn staff anticoagulation given frequent falls but will initiate low dose IV heparin while in-patient Possibility of continuing long-term anticoagulation if transferred to a monitored LTC facility but will need to assess once dispo becomes clear Will discontinue plavix while receiving IV heparin. Continue aspirin (3) Multiple falls: (4) Ambulatory dysfunction: (5) Closed fracture of distal clavicle: In setting of hemiparesis 2/2 former stroke, prone to falls CT head without acute intracranial abnormality Shoulder XR with nondisplaced fracture of the distal right clavicle Ordered for sling, ice as needed, routine ortho consult Fall precautions, PT/OT evaluation Discharge planning (6) UTI (urinary tract infection): Urinalysis abnormal Started on Rocephin for empiric treatment of UTI Follow urine culture (7) Neutropenia: History of chronic leukopenia since 2018. Has undergone workup by Dr. Yang at [facility] for the evaluation of leukopenia. Bone marrow biopsy was recommended but she declined ANC 0.60 today Neutropenic precautions (8) History of CVA (cerebrovascular accident): (9) Left hemiparesis: History of CVA in 2015 with left hemiparesis on aspirin and Plavix Will hold plavix for now while receiving IV heparin Continue aspirin (10) HTN (hypertension): Continue losartan (11) Hypothyroidism: Continue levothyroxine Possible bronchitis Complaints of nonproductive, chest x-ray shows possible basilar infiltrate Added doxycycline already on Rocephin for UTI DVT Ppx: IV heparin Code status: FULL PCP: Leidy Dispo: Admitted to PCU. Discharge planning ordered. Patient seen in collaboration with Dr. Marcos. Please see addendum. History of Present Illness Chief Complaint: Multiple falls at home Primary Care Provider: Bulmaro Forbes This is an 85yo F with a PMH of CVA in 2014 with left hemiparesis on aspirin and Plavix, chronic leukopenia since 2018, dyslipidemia, asthma and other medical problems listed below who presents from home after multiple falls today. Has history of some ambulatory dysfunction due to left hemiparesis from former stroke and ambulates with walker. Requires assistance from for ADLs such as dressing and showering. Has reportedly fallen 4 times this week and was unable to fully catch her on fall this morning so was brought in for further evaluation. Was found to have a nondisplaced fracture of the distal right clavicle and also noted to have atrial fibrillation. No documented atrial fibrillation in the past per chart review. Denies any lightheadedness, visual changes, chest pain, palpitations or SOB. Has a cough but is unable to bring up sputum. Also with history of chronic leukopenia since 2018. Has undergone workup by Dr. Yang at [facility] for the evaluation of leukopenia. Bone marrow biopsy was recommended but she declined. In ED, noted to have A fib with RVR at 108 bpm. Afebrile. Leukopenic at 1.43 (chronic) with ANC 0.60, hemoglobin 11.5 (baseline). CXR with cardiomegaly with vascular congestion and reticular opacities suggestive of pulmonary edema. proBNP pending. Potassium 3.4. Magnesium and TSH within normal limits. Covid screen PCR negative. Urinalysis abnormal. Started on Rocephin for empiric treatment of UTI. Given IV Lopressor 5mg x 1. Allergies Allergy/AdvReac Type Severity Reaction Status Date / Time LINH Inhibitors Allergy Unknown UNK Verified 09/06/20 15:30 aminophylline Allergy Unknown Unknown Verified 09/06/20 15:31 amoxicillin Allergy Unknown SWELLING Verified 11/12/19 07:42 OF HANDS Penicillins Allergy Unknown Unknown Verified 09/06/20 14:39 Home Medications Medication Instructions Recorded Confirmed Type clopidogrel 75 mg tablet 75 mg PO QAM tab 11/21/18 09/06/20 History aspirin 81 mg PO QAM 11/12/19 09/06/20 History cholecalciferol (vitamin D3) 25 mcg PO HS 11/12/19 09/06/20 History [Vitamin D3] gabapentin 100 mg PO QID 11/12/19 09/06/20 History levothyroxine 88 mcg PO 6XWK 11/12/19 09/06/20 History losartan 100 mg PO HS 11/12/19 09/06/20 History rosuvastatin 10 mg PO HS 11/12/19 09/06/20 History Past Med/Surg History Medical History History of CVA (cerebrovascular accident) HLD (hyperlipidemia) HTN (hypertension) Hypothyroidism Left hemiparesis Surgical History History of appendectomy History of bilateral hip replacements History of cholecystectomy History of loop electrical excision procedure (LEEP) History of nasal polypectomy Hx of total knee arthroplasty Family History Other Hypertension Stroke Denies family history of Ovarian cancer Breast cancer Social History Smoking Status: Former smoker Hx Alcohol Use: No Hx Substance Use: No Preferred Language: Urdu Communication Ability: Effective Metal Molder Required: No Beliefs That Will Affect Care: None marital status: Current Living Situation: Spouse Other Information That Helps Us Care for You: No Feels Safe at Home: Yes Safety Concerns: Feels Safe At This Time Assistive Devices: Glasses Review of Systems Review of Systems: At least ten systems reviewed and negative except as noted in the HPI. Physical Exam Physical Exam: General Appearance: vitals as above, NAD, elderly, frail female, pleasant, conversing easily Head: normocephalic, atraumatic Eyes: normal inspection, PERRL, conjunctivae normal, anicteric sclerae ENT: hard of hearing, external ear and nose normal, oropharynx normal Neck: normal visual inspection, trachea midline, no thyromegaly Respiratory: normal respiratory effort, bibasilar rales, L>R, no wheeze or rhonchi. No accessory muscle use Cardiovascular: irregular rate & rhythm, + systolic murmur, normal peripheral pulses, 1+ BLE edema. Vessels: no JVD Chest: normal inspection of chest Abdomen/GI: normal bowel sounds, soft, nontender, no hepatosplenomegaly Extremities/Musculoskeletal: + TTP of distal R clavicle. No deformity noted. Reduced ROM 2/2 pain. No cyanosis or clubbing, extremities motor strength 5/5 Neurologic: PERRL, EOMI, accommodation nl, no face palsy, no dysarthria, CN's II-XI intact bilaterally and moves all extremities Psychiatric: A+Ox3, euthymic affect Skin: no rashes, normal color, warm/dry, bruising noted on bilateral forearms Results & Data Results & Data ([facility]) Vital Signs (Past 12 Hours) Vital Signs Temp Pulse Pulse Resp BP BP Pulse Ox 09/06/20 14:33 36.7 C 74 16 118/74 100 09/06/20 14:10 105 H 18 169/103 H 95 09/06/20 13:49 99 H 95 09/06/20 13:30 117 H 19 09/06/20 13:00 101 H 22 92 09/06/20 12:30 106 H 23 09/06/20 12:00 101 H 24 09/06/20 11:43 105 H 22 92 09/06/20 11:39 36.9 C 98 H 18 152/118 H 93 09/06/20 11:37 108 H 22 155/118 H 93 Laboratory Results Short CBC 09/06/20 Range/Units 13:38 WBC 1.43 L (4.8-10.8) K/uL Hgb 11.5 L (12.0-16.0) g/dL Hct 37.1 (37-47) % Plt Count 149 (130-400) K/uL BMP 09/06/20 13:38 Sodium 144 Potassium 3.4 L Chloride 112 H Carbon Dioxide 25 BUN 18 Creatinine 1.05 Glucose 116 H Calcium 10.8 H Cardiac Enzymes 09/06/20 Range/Units 13:38 Troponin I 0.028 (0-0.045) ng/ml Liver Function 09/06/20 Range/Units 13:38 Total Bilirubin 1.1 H (0.2-1) mg/dl AST 13 L (15-37) U/L ALT 15 (12-78) U/L Alkaline Phosphatase 98 (45-117) U/L Albumin 3.9 (3.4-5.0) gm/dl Urine 09/06/20 Range/Units 13:38 Urine Color Yellow Urine Appearance Cloudy A (Clear) Urine pH 7.0 (4.5-7.5) Ur Specific [place] 1.012 (1.000-1.030) Urine Protein Negative (Negative) Urine Glucose (UA) Negative (Negative) Diagnostic Findings Chest X-Ray 09/06/20 12:55 XR chest 1V portable HISTORY: 85 years-old Female weakness acute weakness COMPARISON: Chest CT 11/15/2019, chest radiograph 08/14/2015 TECHNIQUE: Portable AP view of the chest FINDINGS: Cardiac silhouette is enlarged. Calcific plaque of the thoracic aorta. Bilateral reticular opacities are new/progressed from comparison. No pneumothorax. Small l ayering pleural effusions with asymmetric left lung base opacities. Degenerative changes of the shoulders and spine. IMPRESSION: 1. Cardiomegaly with vascular congestion and reticular opacities suggestive of pulmonary edema. 2. Small pleural effusions. 3. Asymmetric left lung base opacities suggestive of atelectasis versus pneumonia. ACT 112: Negative or not required by law. The above report was generated using voice recognition software. It may contain grammatical, syntax or spelling errors. Electronically signed by: Darci Gonzalez M.D. 09/06/2020 1:[address] 09/06/20 12:55 CT head/brain wo con CLINICAL HISTORY: 85 years-old Female with weakness, falls, atrial fib, h/o stroke. Acute weakness with fall TECHNIQUE: Multiple axial CT images of the head were obtained without contrast. A dose lowering technique was utilized adhering to the principles of ALARA. CT DOSE: 1278.88 mGy.cm COMPARISON: Head CT 08/14/2015 FINDINGS: No acute intracranial hemorrhage, midline shift, intracranial mass, hydrocephalus, territorial ischemia or abnormal extra-axial collection. Remote lacunar infarct of the right thalamus redemonstrated. Motion degraded exam. Age- related involutional changes. Patchy white matter hypodensities suggestive of chronic microvascular ischemic disease. Cerebral vascular calcifications. The calvarium is intact. Mastoid air cells are clear. There is a 1.5 cm area of polypoid mucosal thickening of the left nasal passage. Mucoperiosteal thickening of the maxillary sinuses with small air-fluid levels. Unremarkable soft tissues and orbits. IMPRESSION: No acute intracranial abnormality. ACT 112: Negative or not required by law. The above report was generated using voice recognition software. It may contain grammatical, syntax or spelling errors. Electronically signed by: Darci Gonzalez M.D. 09/06/2020 3:14 PM Shoulder X-Ray 09/06/20 13:51 RIGHT SHOULDER 3 VIEWS CLINICAL HISTORY: Right shoulder injury. FINDINGS: 3 views of the right shoulder are obtained. No prior studies are available for comparison at the time of dictation. The skeletal structures are osteopenic. There is a nondisplaced fracture of the distal right clavicle with overlying soft tissue edema. No additional fracture is seen at the shoulder joint. There is no dislocation. Mild productive degenerative change is seen at the acromioclavicular joint. The glenohumeral articulation is maintained. Degenerative sclerosis is noted in the greater tuberosity of the humeral head. The heart is enlarged noting atherosclerotic calcification of the thoracic aorta. There is pulmonary vascular congestion. IMPRESSION: 1. There is a nondisplaced fracture of the distal right clavicle. 2. No additional fracture is identified at the shoulder joint and there is no dislocation. 3. Cardiomegaly with evidence of congestive failure. Electronically signed by: Paul Tinoco M.D. 09/06/2020 2:45 PM ECG Rhythm: atrial fibrillation Code Status & VTE Plan VTE Prophylaxis Plan VTE Prophylaxis will be ordered: Yes Supervising Physician Co-Signing Physician Notes Date of Service: September 06, 2020 Patient seen and examined, care coordinated with Tania Cabral PA-C This is an 85-year-old female with past medical history of hypertension, chronic neutropenia, history of stroke in past Presented after sustaining multiple falls at home. X-ray shows nondisplaced right clavicular fracture. In the ER patient noted to be in rapid A. fib RVR, chest x-ray shows pulmonary congestion Patient was given IV Lopressor 5 mg x 1, Lasix 40 mg IV x1 Physical exam: General, very pleasant elderly female very hard of hearing\ Heart: Irregularly irregular, no JVD, no lower extremity edema Lungs: Bibasilar crackles Abdomen, soft nontender Extremity: No rash or deformity Neuro: No focal deficit alert awake oriented x3, very hard of hearing Paroxysmal A. fib: Present with A. fib RVR, no prior record of A. fib We will start patient on low-dose p.o. Lopressor 12.5 mg daily, IV heparin low-dose weight-based protocol Cardiology consult requested, resting echo ordered Ambulatory dysfunction/recurrent fall: Possible secondary to A. fib? Prior history of stroke, no focal deficit noted PT OT evaluation, continue IV weight-based protocol for stroke prophylaxis Patient is already on aspirin and Plavix will discuss with cardiology to DC Plavix given increased risk of bleeding. Possible UTI: Urine positive for nitrate, WBC, Urine culture ordered, empiric antibiotic with IV Rocephin Cough/possible bronchitis Patient continues to have nonproductive chest x-ray shows possible basilar infiltrate Added doxycycline already on Rocephin for UTI. CODE STATUS: Full code discussed with patient DVT prophylaxis: IV heparin weight-based protocol Disposition, to be determined PT OT evaluation to assess gait disturbance,/fall risk may benefit with rehab social service consulted Please refer to further documentation by Tania Carbal PA-C for discussion of other medical issues. Kira Marcos MD (1) Neutropenia Neutropenia type: unspecified Qualified Code(s): D70.9 - Neutropenia, unspecified
--- NOTE | 2020-09-06 15:15 | CT Scan Report ---
CT head/brain wo con CLINICAL HISTORY: 85 years-old Female with weakness, falls, atrial fib, h/o stroke. Acute weakness w ith fall TECHNIQUE: Multiple axial CT images of the head were obtained without contrast. A dose lowering tech nique was utilized adhering to the principles of ALARA. CT DOSE: 1278.88 mGy.cm COMPARISON: Head CT 08/14/2015 FINDINGS: No acute intracranial hemorrhage, midline shift, intracranial mass, hydrocephalus, territorial ischem ia or abnormal extra-axial collection. Remote lacunar infarct of the right thalamus redemonstrated. M otion degraded exam. Age-related involutional changes. Patchy white matter hypodensities suggestive o f chronic microvascular ischemic disease. Cerebral vascular calcifications. The calvarium is intact. Mastoid air cells are clear. There is a 1.5 cm area of polypoid mucosal thi ckening of the left nasal passage. Mucoperiosteal thickening of the maxillary sinuses with small air- fluid levels. Unremarkable soft tissues and orbits. IMPRESSION: No acute intracranial abnormality. ACT 112: Negative or not required by law. The above report was generated using voice recognition software. It may contain grammatical, syntax o r spelling errors. Electronically signed by: Darci Gonzalez M.D. 09/06/2020 3:14 PM
--- NOTE | 2020-09-06 15:59 | Communication Note ---
Date of Service: September 06, 2020 Patient seen and examined, care coordinated with Tania Cabral PA-C This is an 85-year-old female with past medical history of hypertension, chronic neutropenia, history of stroke in past Presented after sustaining multiple falls at home. X-ray shows nondisplaced right clavicular fracture. In the ER patient noted to be in rapid A. fib RVR, chest x-ray shows pulmonary congestion Patient was given IV Lopressor 5 mg x 1, Lasix 40 mg IV x1 Physical exam: General, very pleasant elderly female very hard of hearing\ Heart: Irregularly irregular, no JVD, no lower extremity edema Lungs: Bibasilar crackles Abdomen, soft nontender Extremity: No rash or deformity Neuro: No focal deficit alert awake oriented x3, very hard of hearing Paroxysmal A. fib: Present with A. fib RVR, no prior record of A. fib We will start patient on low-dose p.o. Lopressor 12.5 mg daily, IV heparin low-dose weight-based protocol Cardiology consult requested, resting echo ordered Ambulatory dysfunction/recurrent fall: Possible secondary to A. fib? Prior history of stroke, no focal deficit noted PT OT evaluation, continue IV weight-based protocol for stroke prophylaxis Patient is already on aspirin and Plavix will discuss with cardiology to DC Plavix given increased risk of bleeding. Possible UTI: Urine positive for nitrate, WBC, Urine culture ordered, empiric antibiotic with IV Rocephin Cough/possible bronchitis Patient continues to have nonproductive chest x-ray shows possible basilar infiltrate Added doxycycline already on Rocephin for UTI. CODE STATUS: Full code discussed with patient DVT prophylaxis: IV heparin weight-based protocol Disposition, to be determined PT OT evaluation to assess gait disturbance,/fall risk may benefit with rehab social service consulted Please refer to further documentation by Tania Cabral PA-C for discussion of other medical issues. Kira Marcos MD
--- NOTE | 2020-09-06 16:33 | Cardiology Consultation ---
Date of Consultation September 06, 2020 Assessment & Plan (1) Paroxysmal atrial fibrillation: 85-year-old patient with history of a cerebrovascular accident and newly discovered paroxysmal atrial fibrillation with controlled ventricular response. Continue to monitor telemetry. I would not add beta-cristobal currently, rather, monitor overnight and determine whether AV cruzito blocking agents are necessary pending review. Currently does not appear she is a long-term anticoagulation candidate, however, due to her history of CVA and high risk of recurrent CVA, we will initiate IV anticoagulation while in hospital. If she is transferred to a monitored setting or long-term care facility she may be a candidate for long- term anticoagulation. Discontinue clopidogrel. Continue low-dose aspirin. (2) Acute decompensated heart failure: Initiate Lasix 40 mg IV x1 now then daily. 2D transthoracic echocardiogram in a.m. Monitor I's and O's, daily weight, and electrolytes. (3) Murmur, cardiac: Murmur consistent with aortic valve stenosis. Recommend 2D transthoracic echocardiogram for further evaluation. (4) UTI (urinary tract infection): Antibiotics per internal medicine (5) History of CVA (cerebrovascular accident): Left-sided weakness. Continue aspirin. Initiate low-dose anticoagulation in the setting of newly diagnosed atrial fibrillation as noted above. Echocardiogram in a.m. History of Present Illness Reason for Consultation: PAF, question regarding fdc anticoagulation Requesting Physician: Dr. Marcos Attending Physician: Dr. Marcos History of Present Illness 85-year-old female presented to the emergency department after a mechanical fall. Carries history of cerebrovascular accident in 2014 with left hemiparesis on chronic dual antiplatelet therapy, chronic leukopenia, dyslipidemia, reactive airways disease, and dyslipidemia. Patient is a poor historian and hard of hearing. Reports falling in her home. Her was unable to support her. There is a report of a possible clavicle fracture. Denies any exertional chest pain or unusual shortness of breath. Denies orthopnea, PND, or weight gain. Reports bilateral lower extremity edema which is chronic. Wears compression stockings occasionally. CT of the head without evidence of intracranial bleeding. ECG demonstrates atrial fibrillation with premature ventricular complexes. Telemetry reveals rate controlled A. fib at 80 bpm. Denies personal history of coronary disease, congestive heart failure, or diabetes. X-ray on admission reveals pulmonary edema. Patient received 1 L of IV fluid in ER. She is awaiting a dose of IV Lasix currently. Allergies Allergy/AdvReac Type Severity Reaction Status Date / Time LINH Inhibitors Allergy Unknown UNK Verified 09/06/20 15:30 aminophylline Allergy Unknown Unknown Verified 09/06/20 15:31 amoxicillin Allergy Unknown SWELLING Verified 11/12/19 07:42 OF HANDS Penicillins Allergy Unknown Unknown Verified 09/06/20 14:39 Home Medications Medication Instructions Recorded Confirmed Type clopidogrel 75 mg tablet 75 mg PO QAM tab 11/21/18 09/06/20 History aspirin 81 mg PO QAM 11/12/19 09/06/20 History cholecalciferol (vitamin D3) 25 mcg PO HS 11/12/19 09/06/20 History [Vitamin D3] gabapentin 100 mg PO QID 11/12/19 09/06/20 History levothyroxine 88 mcg PO 6XWK 11/12/19 09/06/20 History losartan 100 mg PO HS 11/12/19 09/06/20 History rosuvastatin 10 mg PO HS 11/12/19 09/06/20 History Patient History Medical History History of CVA (cerebrovascular accident) HLD (hyperlipidemia) HTN (hypertension) Hypothyroidism Left hemiparesis Surgical History History of appendectomy History of bilateral hip replacements History of cholecystectomy History of loop electrical excision procedure (LEEP) History of nasal polypectomy Hx of total knee arthroplasty Family History Other Hypertension Stroke Denies family history of Ovarian cancer Breast cancer Social History Smoking Status: Former smoker Hx Alcohol Use: No Hx Substance Use: No Preferred Language: Korean Communication Ability: Effective Crew Supervisor Required: No Beliefs That Will Affect Care: None marital status: Current Living Situation: Spouse Feels Safe at Home: Yes Assistive Devices: Glasses and Walker Review of Systems Review of Systems: All systems reviewed & are unremarkable except as noted in Subjective Physical Exam Constitutional: well developed; no acute distress and not ill appearing ENMT: Ears: + hearing impairment Respiratory: normal respiratory effort; no respiratory distress and no labored breathing Auscultation: + diminished lung sounds (Bases bilateral) and + crackles (Bilateral); no rhonchi and no wheezes Cardiovascular: Rate/Rhythm: + irregularly irregular Heart Sounds: normal S1 and + murmur (2/6 high-pitched mid peaking systolic murmur) Vessels: + JVD Extremities: + edema Gastrointestinal (Abdomen): Inspection/Auscultation: abdomen normal to inspection and normal bowel sounds; abdomen not distended Percussion/Palpation: abdomen soft; abdomen nontender, no guarding and abdomen not rigid Skin: + ecchymosis (Involving her chest and upper extremity) Neurologic: Motor/Sensory: + abnormal movement (Left-sided weakness) Psychiatric: A+Ox3, euthymic affect Results & Data ([facility]) Vital Signs (Past 12 Hours) Vital Signs Temp Pulse Pulse Resp BP BP Pulse Ox 09/06/20 14:33 36.7 C 74 16 118/74 100 09/06/20 14:10 105 H 18 169/103 H 95 09/06/20 13:49 99 H 95 09/06/20 13:30 117 H 19 09/06/20 13:00 101 H 22 92 09/06/20 12:30 106 H 23 09/06/20 12:00 101 H 24 09/06/20 11:43 105 H 22 92 09/06/20 11:39 36.9 C 98 H 18 152/118 H 93 09/06/20 11:37 108 H 22 155/118 H 93
--- NOTE | 2020-09-06 16:57 | Electrocardiogram Report ---
Test Reason : Blood Pressure : / mmHG Vent. Rate : 101 BPM Atrial Rate : 113 BPM P-R Int : 000 ms QRS Dur : 108 ms QT Int : 392 ms P-R-T Axes : 000 -29 126 degrees QTc Int : 508 ms Atrial fibrillation with rapid ventricular response with premature ventricular or aberrantly conducte d complexes Nonspecific ST and T wave abnormality Abnormal ECG When compared with ECG of 16-AUG-2015 06:16, Atrial fibrillation has replaced Sinus rhythm Questionable change in QRS duration Confirmed by Matias Ewing ([id number]) on 09/06/2020 4:57:11 PM Referred By: REFERRED SELF Confirmed By:Abhishek Ewing
[2020-09-06] MEDS ORDERED: Heparin IV Adult Wt-Based Low-Dose *NO* Bolus Protocol IV SCH (17:15)
[2020-09-06] MEDS ORDERED: METOPROLOL TARTRATE 1 MG/ML VIAL IV PRN (17:15)
[2020-09-06] MEDS ORDERED: ONDANSETRON INJ 2 MG/ML 2 ML VIAL IV PRN (17:15)
[2020-09-06] MEDS ORDERED: ACETAMINOPHEN 325 MG TAB PO PRN (17:15)
[2020-09-06] MEDS ORDERED: POLYETHYLENE (MIRALAX) 17 GM PACK PO PRN (17:15)
--- NOTE | 2020-09-06 17:18 | XRay Report ---
XR humerus LT 2V HISTORY: 85 years-old Female arm stuck in CT scanner? no pain on exam acute left arm pain COMPARISON: None TECHNIQUE: 2 views of the left humerus FINDINGS: Demineralized appearance the bones. Osteoarthritis of the shoulder and elbow. No acute fracture, disl ocation or opaque foreign body. Arterial calcifications. IMPRESSION: No acute fracture or dislocation. ACT 112: Negative or not required by law. The above report was generated using voice recognition software. It may contain grammatical, syntax o r spelling errors. Electronically signed by: Darci Gonzalez M.D. 09/06/2020 5:16 PM
[2020-09-06] MEDS ORDERED: METOPROLOL TARTRATE 25 MG TAB PO SCH (18:00)
[2020-09-06] MEDS: HEPARIN SODIUM/DEXTROSE 25,000 UNITS/500 ML BAG IV SCH (18:30)
[2020-09-06 19:12] LABS: Partial Thromboplastin Ratio 0.9; Partial Thromboplastin Time 24.8 Seconds (21.0-31.0)
[2020-09-06] MEDS: LOSARTAN POTASSIUM 50 MG TAB PO SCH (20:17)
[2020-09-06] MEDS: GABAPENTIN 100 MG CAP PO SCH (20:17)
[2020-09-06] MEDS: ROSUVASTATIN CALCIUM 10 MG TAB PO SCH (20:17)
[2020-09-06] MEDS: DOXYCYCLINE HYCLATE 100 MG CAP PO SCH (20:17)
[2020-09-06] MEDS: CHOLECALCIFEROL 1,000 UNITS 25 MCG TAB PO SCH (20:17)
--- NOTE | 2020-09-06 21:13 | Emergency Department Note ---
History of Present Illness General Chief complaint: Shoulder Pain Time Seen by Provider: 09/06/20 12:09 Source: patient and RN notes reviewed Mode of arrival: EMS Limitations: altered mental status (? Memory impairment) History of Present Illness Provider complaint: Right shoulder pain after fall Maximum Pain Intensity: 2 This patient is an 85-year-old female who presents to the emergency department with complaints of right shoulder pain after a fall today. Patient apparently has a history of stroke and has chronic left hemiparesis. She uses a walker by report and was on her way back from the bathroom and states "I just could not walk anymore." Her tried to stabilize her but was unable to hold her up. She states he lowered her to the ground. Patient denies hitting her right shoulder but complains of pain. She states sometimes she forgets about the pain and is able to move the arm. She denies a head injury, chest pain or shortness of breath. Patient denies any recent fevers, chills, vomiting or diarrhea. She denies any urinary difficulties because she "drinks a lot of water." Home Medications Medication Instructions Recorded Confirmed Type clopidogrel 75 mg tablet 75 mg PO QAM tab 11/21/18 09/06/20 History aspirin 81 mg PO QAM 11/12/19 09/06/20 History cholecalciferol (vitamin D3) 25 mcg PO HS 11/12/19 09/06/20 History [Vitamin D3] gabapentin 100 mg PO QID 11/12/19 09/06/20 History levothyroxine 88 mcg PO [id number] 11/12/19 09/06/20 History losartan 100 mg PO HS 11/12/19 09/06/20 History rosuvastatin 10 mg PO HS 11/12/19 09/06/20 History Allergies Allergy/AdvReac Type Severity Reaction Status Date / Time LINH Inhibitors Allergy Unknown UNK Verified 09/06/20 15:30 aminophylline Allergy Unknown Unknown Verified 09/06/20 15:31 amoxicillin Allergy Unknown SWELLING Verified 11/12/19 07:42 OF HANDS Penicillins Allergy Unknown Unknown Verified 09/06/20 14:39 Past Med/Surg History Medical History History of CVA (cerebrovascular accident) HLD (hyperlipidemia) HTN (hypertension) Hypothyroidism Left hemiparesis Surgical History History of appendectomy History of bilateral hip replacements History of cholecystectomy History of loop electrical excision procedure (LEEP) History of nasal polypectomy Hx of total knee arthroplasty Family History Other Hypertension Stroke Denies family history of Ovarian cancer Breast cancer Social History Smoking Status: Former smoker Hx Alcohol Use: No Hx Substance Use: No Preferred Language: Stateless Communication Ability: Effective Bi Tri Operator Required: No Beliefs That Will Affect Care: None marital status: Current Living Situation: Spouse Other Information That Helps Us Care for You: No Feels Safe at Home: Yes Safety Concerns: Feels Safe At This Time Assistive Devices: Glasses and Walker Review of Systems See HPI for pertinent positives & negatives. and A total of 10 systems reviewed and were otherwise negative Physical Exam Vital Signs Vital Signs - 24 hr 09/06/20 11:37 09/06/20 11:39 09/06/20 11:43 Temperature 36.9 C Temperature Source Oral Pulse Rate 108 H 98 H 105 H Pulse Rate [Right Finger] Pulse Rate from SpO2 Sensor Pulse Rhythm Regular Respiratory Rate 22 18 22 Respiratory Effort / Characteristics Spontaneous Respiratory Depth Normal Blood Pressure 155/118 H 152/118 H Blood Pressure [Right Arm] Blood Pressure Mean 130 129 Blood Pressure Mean [Right Arm] Blood Pressure Position Lying Blood Pressure Position [Right Arm] Pulse Oximetry 93 93 92 Oxygen Delivery Method Room Air Sepsis Recent Fever Within 48 Hours No Sepsis New/Unexplained Change in Mental Status No Sepsis Action Taken by Nursing No Action Required 09/06/20 12:00 09/06/20 12:30 09/06/20 13:00 Temperature Temperature Source Pulse Rate 101 H 106 H 101 H Pulse Rate [Right Finger] Pulse Rate from SpO2 Sensor Pulse Rhythm Respiratory Rate 24 23 22 Respiratory Effort / Characteristics Respiratory Depth Blood Pressure Blood Pressure [Right Arm] Blood Pressure Mean Blood Pressure Mean [Right Arm] Blood Pressure Position Blood Pressure Position [Right Arm] Pulse Oximetry 92 Oxygen Delivery Method Sepsis Recent Fever Within 48 Hours Sepsis New/Unexplained Change in Mental Status Sepsis Action Taken by Nursing 09/06/20 13:30 09/06/20 13:49 09/06/20 14:10 Temperature Temperature Source Pulse Rate 117 H 99 H Pulse Rate [Right Finger] 105 H Pulse Rate from SpO2 Sensor Pulse Rhythm Irregular Respiratory Rate 19 18 Respiratory Effort / Characteristics Respiratory Depth Blood Pressure Blood Pressure [Right Arm] 169/103 H Blood Pressure Mean Blood Pressure Mean [Right Arm] 125 Blood Pressure Position Blood Pressure Position [Right Arm] Sitting Pulse Oximetry 95 95 Oxygen Delivery Method Room Air Room Air Sepsis Recent Fever Within 48 Hours Sepsis New/Unexplained Change in Mental Status Sepsis Action Taken by Nursing 09/06/20 14:33 09/06/20 15:00 09/06/20 15:10 Temperature 36.7 C Temperature Source Oral Pulse Rate 97 H 87 Pulse Rate [Right Finger] 74 Pulse Rate from SpO2 Sensor 95 H Pulse Rhythm Respiratory Rate 16 27 H 24 Respiratory Effort / Characteristics Respiratory Depth Blood Pressure Blood Pressure [Right Arm] 118/74 Blood Pressure Mean Blood Pressure Mean [Right Arm] 88 Blood Pressure Position Blood Pressure Position [Right Arm] Lying Pulse Oximetry 100 94 Oxygen Delivery Method Room Air Room Air Sepsis Recent Fever Within 48 Hours Sepsis New/Unexplained Change in Mental Status Sepsis Action Taken by Nursing Vital signs reviewed. General: Chronically ill-appearing 85-year-old female, in no significant distress HEENT: No scleral icterus, PERRLA, neck supple. Atraumatic. Cardiovascular: Irregular and tachycardic, systolic ejection murmur Pulmonary: Crackles to the bases bilaterally, normal work of breathing on room air. Abdomen: Soft, nontender, nondistended, positive bowel sounds. Musculoskeletal: Atraumatic, no peripheral edema. Tender to palpation over the right trapezius muscle and distal clavicle without palpable defect. Full range of motion of the right shoulder without difficulty. Nontender to palpation of the humeral head. Neurologic: Patient awake alert and answers most questions appropriately, occasionally confused, equal strength in all 4 extremities, 4/5 strength throughout. Cranial nerves II through XII are grossly intact. Speech is clear. Skin: Warm, dry, no rash Course Administered Medications Aspirin (Aspirin 81 Mg Ectab) [facility] [place] Stop: 10/07/20 08:59 Last Admin: 09/07/20 10:53 Dose: 81 mg Documented by: [id number] Doxycycline Hyclate (Doxycycline Hyclate 100 Mg Cap) 100 mg PO BID [facility]; Protocol Stop: 09/13/20 20:59 Last Admin: 09/07/20 10:53 Dose: 100 mg Documented by: [id number] Admin: 09/06/20 20:17 Dose: 100 mg Documented by: [id number] Gabapentin (Gabapentin 100 Mg Cap) 100 mg PO QID [facility] Stop: 10/06/20 20:59 Last Admin: 09/07/20 17:19 Dose: 100 mg Documented by: [id number] Admin: 09/07/20 13:06 Dose: Not Given Documented by: [id number] Admin: 09/07/20 10:54 Dose: 100 mg Documented by: [id number] Admin: 09/06/20 20:17 Dose: 100 mg Documented by: [id number] Heparin Sodium/Dextrose (Heparin Sodium/Dextrose) 25,000 units in 500 mls @ 18 mls/hr IV .Q24H [facility]; Protocol Stop: 10/06/20 17:14 Last Titration: 09/07/20 14:42 Dose: 900 units/hr, 18 mls/hr Documented by: [id number] Cosigned by: [id number] Titration: 09/07/20 08:06 Dose: 850 units/hr, 17 mls/hr Documented by: [id number] Cosigned by: [id number] Titration: 09/07/20 07:20 Dose: 800 units/hr, 16 mls/hr Documented by: [id number] Cosigned by: [id number] Titration: 09/07/20 00:48 Dose: 800 units/hr, 16 mls/hr Documented by: [id number] Cosigned by: [id number] Admin: 09/06/20 18:30 Dose: 700 units/hr, 14 mls/hr Documented by: [id number] Cosigned by: [id number] Furosemide 40 mg/ Syringe 4 mls @ 4 mls/min IV DAILY [facility] Stop: 10/07/20 08:59 Last Admin: 09/07/20 10:53 Dose: 4 mls/min Documented by: [id number] Levothyroxine Sodium (Levothyroxine Sodium 88 Mcg Tablet) 88 mcg PO [id number] [facility] Stop: 10/07/20 06:29 Last Admin: 09/07/20 05:43 Dose: 88 mcg Documented by: [id number] Losartan Potassium (Losartan Potassium 50 Mg Tab) 100 mg PO HS [facility]ONI Stop: 10/06/20 20:59 Last Admin: 09/06/20 20:17 Dose: 100 mg Documented by: [id number] Rosuvastatin Calcium (Rosuvastatin Calcium 10 Mg Tab) 10 mg PO HS [facility]ONI Stop: 10/06/20 20:59 Last Admin: 09/06/20 20:17 Dose: 10 mg Documented by: [id number] Vitamin D (Cholecalciferol 1,000 Units 25 Mcg Tab) 1,000 units PO HS LONI Stop: 10/06/20 20:59 Last Admin: 09/06/20 20:17 Dose: 1,000 units Documented by: [id number] Discontinued Medications Acetaminophen (Acetaminophen 500 Mg Tab) 1,000 mg PO NOW STA Stop: 09/06/20 13:02 Last Admin: 09/06/20 14:11 Dose: 1,000 mg Documented by: [id number] Furosemide (Furosemide 40 Mg/4 Ml Vial) 40 mg IV NOW STA Stop: 09/06/20 14:35 Last Admin: 09/06/20 15:59 Dose: 40 mg Documented by: [id number] Heparin Sodium (Porcine) (Heparin Sod (Porcine) 1000 Unit/Ml) 2,000 units IV NOW ONE Stop: 09/07/20 01:21 Last Admin: 09/07/20 01:39 Dose: 2,000 units Documented by: [id number] Cosigned by: [id number] Heparin Sodium/Dextrose (Heparin Iv Adult Wt-Based Low-Dose *No* Bolus Protocol) 1 ea IV Q15M [facility]; Protocol Stop: 09/06/20 17:16 Last Admin: 09/06/20 18:30 Dose: 1 ea Documented by: [id number] Sodium Chloride (Nss 1000ml) 1,000 mls @ 125 mls/hr IV .Q8H [facility]ONI Stop: 09/06/20 20:59 Last Infusion: 09/06/20 14:39 Dose: 0 mls/hr Documented by: [id number] Admin: 09/06/20 14:11 Dose: 125 mls/hr Documented by: [id number] Ceftriaxone Sodium (Rocephin) 1,000 mg in 50 mls @ 100 mls/hr IV NOW STA Stop: 09/06/20 15:01 Last Infusion: 09/06/20 16:48 Dose: 0 mls/hr Documented by: [id number] Admin: 09/06/20 15:58 Dose: 100 mls/hr Documented by: [id number] Ioversol (Optiray 350 500ml) 116 ml IV ONCE ONE Stop: 09/06/20 14:43 Last Admin: 09/06/20 14:42 Dose: 116 ml Documented by: [id number] Metoprolol Tartrate (Metoprolol Tartrate 1 Mg/Ml Vial) 5 mg IV NOW STA Stop: 09/06/20 13:00 Last Admin: 09/06/20 14:11 Dose: 5 mg Documented by: [id number] Metoprolol Tartrate (Metoprolol Tartrate 1 Mg/Ml Vial) 5 mg IV NOW STA Stop: 09/06/20 14:31 Last Admin: 09/06/20 15:59 Dose: Not Given Documented by: [id number] Metoprolol Tartrate (Metoprolol Tartrate 25 Mg Tab) 25 mg PO ONE ONE Stop: 09/07/20 13:46 Last Admin: 09/07/20 14:53 Dose: 25 mg Documented by: [id number] Potassium Chloride (Potassium Chloride Crtab 20 Meq Tabcr) 40 meq PO NOW STA Stop: 09/06/20 14:35 Last Admin: 09/06/20 15:59 Dose: 40 meq Documented by: [id number] Potassium Chloride (Potassium Chloride Crtab 20 Meq Tabcr) 40 meq PO NOW STA Stop: 09/07/20 05:53 Last Admin: 09/07/20 06:06 Dose: 40 meq Documented by: [id number] Medical Decision Making Differential Diagnosis Infection, dehydration, metabolic abnormality, hypo/hyperglycemia, electrolyte disturbance, anemia, hypoxia, cardiac sources, intracerebral event, toxicologic, neurologic, as well as other pathologies. Medical Records Attestation: I reviewed the patient's medical records. Home Medications Current Medication List: was personally reviewed by me Laboratory Data Attestation: I reviewed the patient's lab results. Result diagrams: 09/07/20 07:38 09/07/20 07:38 Lab Results 09/06/20 09/06/20 09/06/20 Range/Units 13:38 13:38 13:38 WBC 1.43 L (4.8-10.8) K/uL RBC 4.51 (4.2-5.4) M/uL Hgb 11.5 L (12.0-16.0) g/dL Hct 37.1 (37-47) % MCV 82.3 (80-100) fL MCH 25.5 (25-34) pg MCHC 31.0 L (32-36) g/dL RDW Std Deviation 57.3 H (36.4-46.3) fL RDW Coeff of Josue 19.2 H (11.5-14.5) % Plt Count 149 (130-400) K/uL MPV 9.5 (7.4-10.4) fL Immature Gran % (Auto) 0.0 % Neut % (Auto) 41.9 % Lymph % (Auto) 31.5 % Gulf % (Auto) 24.5 % Eos % (Auto) 1.4 % Baso % (Auto) 0.7 % Neut # (Auto) 0.60 L* (1.4-6.5) K/uL Lymph # (Auto) 0.45 L (1.2-3.4) K/uL [place] # (Auto) 0.35 (0.11-0.59) K/uL Eos # (Auto) 0.02 (0-0.5) K/uL Baso # (Auto) 0.01 (0-0.2) K/uL Immature Gran # (Auto) 0.00 (0.00-0.02) K/uL Ovalocytes 1+ PT 11.2 (9.0-12.0) Seconds INR 1.1 (0.9-1.1) APTT (21.0-31.0) Seconds PTT Ratio Sodium 144 (136-145) mmol/L Potassium 3.4 L (3.5-5.1) mmol/L Chloride 112 H (98-107) mmol/L Carbon Dioxide 25 (21-32) mmol/L Anion Gap 8.0 (3-11) BUN 18 (7-18) mg/dl Creatinine 1.05 (0.6-1.2) mg/dl Est Cr Clr Drug Dosing 36.0 ml/min Est GFR ( Amer) 56.1 ml/min Est GFR (Non-Af Amer) 48.4 ml/min BUN/Creatinine Ratio 17.5 (10-20) Glucose 116 H (70-99) mg/dl Calcium 10.8 H (8.5-10.1) mg/dl Magnesium 2.4 (1.8-2.4) mg/dl Total Bilirubin 1.1 H (0.2-1) mg/dl AST 13 L (15-37) U/L ALT 15 (12-78) U/L Alkaline Phosphatase 98 (45-117) U/L Troponin I 0.028 (0-0.045) ng/ml Total Protein 6.3 L (6.4-8.2) gm/dl Albumin 3.9 (3.4-5.0) gm/dl Globulin 2.4 L (2.5-4.0) gm/dl Albumin/Globulin Ratio 1.7 (0.9-2) TSH 3.520 (0.300-4.500) uIu/ml Urine Color Urine Appearance (Clear) Urine pH (4.5-7.5) Ur Specific [place] (1.000-1.030) Urine Protein (Negative) Urine Glucose (UA) (Negative) Urine Ketones (Negative) Urine Blood (Negative) Urine Nitrite (Negative) Urine Bilirubin (Negative) Urine Urobilinogen (Negative) Ur Leukocyte Esterase (Negative) Urine WBC (Auto) (0-5) /hpf Urine RBC (Auto) (0-4) /hpf U Hyaline Cast (Auto) (0-5) /lpf U Epithel Cells (Auto) (0-5) /lpf Urine Bacteria (Auto) (Negative) Urine Yeast COVID-19 Eval Order SARS-CoV-2 (PCR) (Negative) 09/06/20 09/06/20 09/06/20 Range/Units 13:38 13:38 13:38 WBC (4.8-10.8) K/uL RBC (4.2-5.4) M/uL Hgb (12.0-16.0) g/dL Hct (37-47) % MCV (80-100) fL MCH (25-34) pg MCHC (32-36) g/dL RDW Std Deviation (36.4-46.3) fL RDW Coeff of Josue (11.5-14.5) % Plt Count (130-400) K/uL MPV (7.4-10.4) fL Immature Gran % (Auto) % Neut % (Auto) % Lymph % (Auto) % Gulf % (Auto) % Eos % (Auto) % Baso % (Auto) % Neut # (Auto) (1.4-6.5) K/uL Lymph # (Auto) (1.2-3.4) K/uL [place] # (Auto) (0.11-0.59) K/uL Eos # (Auto) (0-0.5) K/uL Baso # (Auto) (0-0.2) K/uL Immature Gran # (Auto) (0.00-0.02) K/uL Ovalocytes PT (9.0-12.0) Seconds INR (0.9-1.1) APTT (21.0-31.0) Seconds PTT Ratio Sodium (136-145) mmol/L Potassium (3.5-5.1) mmol/L Chloride (98-107) mmol/L Carbon Dioxide (21-32) mmol/L Anion Gap (3-11) BUN (7-18) mg/dl Creatinine (0.6-1.2) mg/dl Est Cr Clr Drug Dosing ml/min Est GFR ( Amer) ml/min Est GFR (Non-Af Amer) ml/min BUN/Creatinine Ratio (10-20) Glucose (70-99) mg/dl Calcium (8.5-10.1) mg/dl Magnesium (1.8-2.4) mg/dl Total Bilirubin (0.2-1) mg/dl AST (15-37) U/L ALT (12-78) U/L Alkaline Phosphatase (45-117) U/L Troponin I (0-0.045) ng/ml Total Protein (6.4-8.2) gm/dl Albumin (3.4-5.0) gm/dl Globulin (2.5-4.0) gm/dl Albumin/Globulin Ratio (0.9-2) TSH (0.300-4.500) uIu/ml Urine Color Yellow Urine Appearance Cloudy A (Clear) Urine pH 7.0 (4.5-7.5) Ur Specific [place] 1.012 (1.000-1.030) Urine Protein Negative (Negative) Urine Glucose (UA) Negative (Negative) Urine Ketones Negative (Negative) Urine Blood Negative (Negative) Urine Nitrite Positive A (Negative) Urine Bilirubin Negative (Negative) Urine Urobilinogen Negative (Negative) Ur Leukocyte Esterase 2+ H (Negative) Urine WBC (Auto) 10-30 H (0-5) /hpf Urine RBC (Auto) 0-4 (0-4) /hpf U Hyaline Cast (Auto) 1-5 (0-5) /lpf U Epithel Cells (Auto) 10-20 H (0-5) /lpf Urine Bacteria (Auto) 3+ H (Negative) Urine Yeast Not Reportable COVID-19 Eval Order Covid19 at [facility] SARS-CoV-2 (PCR) NEGATIVE (Negative) 09/06/20 Range/Units 13:38 WBC (4.8-10.8) K/uL RBC (4.2-5.4) M/uL Hgb (12.0-16.0) g/dL Hct (37-47) % MCV (80-100) fL MCH (25-34) pg MCHC (32-36) g/dL RDW Std Deviation (36.4-46.3) fL RDW Coeff of Josue (11.5-14.5) % Plt Count (130-400) K/uL MPV (7.4-10.4) fL Immature Gran % (Auto) % Neut % (Auto) % Lymph % (Auto) % [place] % (Auto) % Eos % (Auto) % Baso % (Auto) % Neut # (Auto) (1.4-6.5) K/uL Lymph # (Auto) (1.2-3.4) K/uL [place] # (Auto) (0.11-0.59) K/uL Eos # (Auto) (0-0.5) K/uL Baso # (Auto) (0-0.2) K/uL Immature Gran # (Auto) (0.00-0.02) K/uL Ovalocytes PT (9.0-12.0) Seconds INR (0.9-1.1) APTT 24.8 (21.0-31.0) Seconds PTT Ratio 0.9 Sodium (136-145) mmol/L Potassium (3.5-5.1) mmol/L Chloride (98-107) mmol/L Carbon Dioxide (21-32) mmol/L Anion Gap (3-11) BUN (7-18) mg/dl Creatinine (0.6-1.2) mg/dl Est Cr Clr Drug Dosing ml/min Est GFR ( Amer) ml/min Est GFR (Non-Af Amer) ml/min BUN/Creatinine Ratio (10-20) Glucose (70-99) mg/dl Calcium (8.5-10.1) mg/dl Magnesium (1.8-2.4) mg/dl Total Bilirubin (0.2-1) mg/dl AST (15-37) U/L ALT (12-78) U/L Alkaline Phosphatase (45-117) U/L Troponin I (0-0.045) ng/ml Total Protein (6.4-8.2) gm/dl Albumin (3.4-5.0) gm/dl Globulin (2.5-4.0) gm/dl Albumin/Globulin Ratio (0.9-2) TSH (0.300-4.500) uIu/ml Urine Color Urine Appearance (Clear) Urine pH (4.5-7.5) Ur Specific [place] (1.000-1.030) Urine Protein (Negative) Urine Glucose (UA) (Negative) Urine Ketones (Negative) Urine Blood (Negative) Urine Nitrite (Negative) Urine Bilirubin (Negative) Urine Urobilinogen (Negative) Ur Leukocyte Esterase (Negative) Urine WBC (Auto) (0-5) /hpf Urine RBC (Auto) (0-4) /hpf U Hyaline Cast (Auto) (0-5) /lpf U Epithel Cells (Auto) (0-5) /lpf Urine Bacteria (Auto) (Negative) Urine Yeast COVID-19 Eval Order SARS-CoV-2 (PCR) (Negative) Imaging Data Radiologist's Impression: Chest X-Ray 09/06/20 12:55 XR chest 1V portable HISTORY: 85 years-old Female weakness acute weakness COMPARISON: Chest CT 11/15/2019, chest radiograph 08/14/2015 TECHNIQUE: Portable AP view of the chest FINDINGS: Cardiac silhouette is enlarged. Calcific plaque of the thoracic aorta. Bilateral reticular opacities are new/progressed from comparison. No pneumothorax. Small layering pleural effusions with asymmetric left lung base opacities. Degenerative changes of the shoulders and spine. IMPRESSION: 1. Cardiomegaly with vascular congestion and reticular opacities suggestive of pulmonary edema. 2. Small pleural effusions. 3. Asymmetric left lung base opacities suggestive of atelectasis versus pneumonia. ACT 112: Negative or not required by law. The above report was generated using voice recognition software. It may contain grammatical, syntax or spelling errors. Electronically signed by: Darci Gonzalez M.D. 09/06/2020 1:[address] 09/06/20 12:55 CT head/brain wo con CLINICAL HISTORY: 85 years-old Female with weakness, falls, atrial fib, h/o stroke. Acute weakness with fall TECHNIQUE: Multiple axial CT images of the head were obtained without contrast. A dose lowering technique was utilized adhering to the principles of ALARA. CT DOSE: 1278.88 mGy.cm COMPARISON: Head CT 08/14/2015 FINDINGS: No acute intracranial hemorrhage, midline shift, intracranial mass, hydrocephalus, territorial ischemia or abnormal extra-axial collection. Remote lacunar infarct of the right thalamus redemonstrated. Motion degraded exam. Age- related involutional changes. Patchy white matter hypodensities suggestive of chronic microvascular ischemic disease. Cerebral vascular calcifications. The calvarium is intact. Mastoid air cells are clear. There is a 1.5 cm area of polypoid mucosal thickening of the left nasal passage. Mucoperiosteal thickening of the maxillary sinuses with small air-fluid levels. Unremarkable soft tissues and orbits. IMPRESSION: No acute intracranial abnormality. ACT 112: Negative or not required by law. The above report was generated using voice recognition software. It may contain grammatical, syntax or spelling errors. Electronically signed by: Darci Gonzalez M.D. 09/06/2020 3:14 PM Shoulder X-Ray 09/06/20 13:51 RIGHT SHOULDER 3 VIEWS CLINICAL HISTORY: Right shoulder injury. FINDINGS: 3 views of the right shoulder are obtained. No prior studies are available for comparison at the time of dictation. The skeletal structures are osteopenic. There is a nondisplaced fracture of the distal right clavicle with overlying soft tissue edema. No additional fracture is seen at the shoulder joint. There is no dislocation. Mild productive degenerative change is seen at the acromioclavicular joint. The glenohumeral articulation is maintained. Degenerative sclerosis is noted in the greater tuberosity of the humeral head. The heart is enlarged noting atherosclerotic calcification of the thoracic aorta. There is pulmonary vascular congestion. IMPRESSION: 1. There is a nondisplaced fracture of the distal right clavicle. 2. No additional fracture is identified at the shoulder joint and there is no dislocation. 3. Cardiomegaly with evidence of congestive failure. Electronically signed by: Paul Tinoco M.D. 09/06/2020 2:45 PM ECG Data Attestation: I personally reviewed and interpreted this ECG as follows: Indication: + weakness Rate (beats per minute): 101 Rhythm: + atrial fibrillation (RVR) ECG Intervals/blocks: + Prolonged QT ECG ST segments: + Nonspecific ST abnormalities and + repolarization abnormalities ECG Findings: + Q waves (Anterior), + PVCs and + Other; no PACs Comparison ECG Date: from (08/16/2015) Change: the following changes noted (Atrial fibrillation is new) Blood Pressure Blood Pressure Findings: Elevated blood pressure Blood Pressure Disposition: further management by hospitalist MDM Narrative This patient was evaluated and appeared to be in no significant distress. IV access was obtained and laboratory work was drawn. An order for cardiac monitoring was placed and the patient is noted to be in atrial fibrillation with rapid ventricular response at 105 bpm. Patient was medicated with 5 mg of IV metoprolol as her blood pressure is also elevated. EKG confirms the atrial fibrillation and no acute ischemic change. Laboratory work reveals a negative troponin. Patient is noted to be leukopenic with a neutropenia however this is a chronic finding UA is contaminated but does appear to be infected. CT scan of the head is negative for acute intracranial pathology. Shoulder x-ray on the right reveals a distal clavicle fracture that is nondisplaced. Patient did complain of left shoulder/arm pain while in the CT scanner, there was some concern that perhaps it was caught in the scanner. On my evaluation the patient had no pain and denied the episode however x-rays were performed of the humerus and there is no fracture identified. Patient was given 1 g of IV ceftriaxone. This was discussed with the hospitalist service who will evaluate the patient for admission and further management. Impression & Plan Atrial fibrillation with rapid ventricular response, HTN (hypertension), UTI (urinary tract infection), Fall, Closed fracture of right clavicle Discharge Plan Visit Data Chief Complaint: Shoulder Pain ED Provider: Alla Dunlap Discharge Problem: Atrial fibrillation with rapid ventricular response, HTN (hypertension), UTI (urinary tract infection), Fall, Closed fracture of right clavicle Patient Disposition: Admitted As Inpatient Discharge Instructions Interventions: ED Discharge Assessment Last Done: 09/06/20 16:50 Discharge Problem: HTN (hypertension) Qualifiers: Hypertension type: essential hypertension Qualified Code(s): I10 - Essential (primary) hypertension UTI (urinary tract infection) Qualifiers: Urinary tract infection type: acute cystitis Hematuria presence: without hematuria Qualified Code(s): N30.00 - Acute cystitis without hematuria Fall Qualifiers: Encounter type: initial encounter Qualified Code(s): W19.XXXA - Unspecified fall, initial encounter Closed fracture of right clavicle Qualifiers: Encounter type: initial encounter Clavicle location: lateral end Fracture alignment: nondisplaced Qualified Code(s): S42.034A - Nondisplaced fracture of lateral end of right clavicle, initial encounter for closed fracture
[2020-09-07 00:45] LABS: Partial Thromboplastin Ratio 1.2; Partial Thromboplastin Time 32.8 Seconds (21.0-31.0)
[2020-09-07] MEDS ORDERED: HEPARIN SOD (PORCINE) 1000 UNIT/ML IV ONE (01:20)
[2020-09-07] MEDS: LEVOTHYROXINE SODIUM 88 MCG TABLET PO SCH (05:43)
[2020-09-07] MEDS ORDERED: XOPENEX/ATROVENT 1.25mg/0.5MG NEB COMBO NEB PRN (05:43)
[2020-09-07] MEDS ORDERED: LEVALBUTEROL 1.25MG/0.5ML NEB INH PRN (05:45)
[2020-09-07] MEDS ORDERED: IPRATROPIUM BROMIDE NEB SOLN 0.02% 2.5 ML VIAL INH PRN (05:45)
[2020-09-07] MEDS ORDERED: POTASSIUM CHLORIDE CRTAB 20 MEQ TABCR PO STA (05:52)
[2020-09-07 07:52] LABS: Hematocrit (blood only) 34.7 % (37-47); Hemoglobin 10.9 g/dL (12.0-16.0); Mean Corpuscular Hemoglobin 25.1 pg (25-34); Mean Corpuscular Hgb Conc 31.4 g/dL (32-36); Mean Corpuscular Volume 79.8 fL (80-100); Mean Platelet Volume 9.2 fL (7.4-10.4); Platelet Count 127 K/uL (130-400); RDW Coefficient of Variation 18.9 % (11.5-14.5); RDW Standard Deviation 54.9 fL (36.4-46.3); Red Blood Count 4.35 M/uL (4.2-5.4); White Blood Count 1.35 K/uL (4.8-10.8)
[2020-09-07 08:03] LABS: Partial Thromboplastin Ratio 1.6; Partial Thromboplastin Time 42.5 Seconds (21.0-31.0)
[2020-09-07 08:19] LABS: Calcium 10.4 mg/dl (8.5-10.1); Creatinine Clr Calc Pharmacy 35.4 ml/min; Est GFR (African American) 62.5 ml/min; Est GFR (Non-African American) 53.9 ml/min; Magnesium 2.2 mg/dl (1.8-2.4)
--- NOTE | 2020-09-07 08:37 | Orthopedic Consultation ---
Date of Consultation September 07, 2020 Assessment & Plan (1) Closed fracture of distal clavicle: She has a minimally displaced right distal clavicle fracture after a mechanical fall. Recommend nonoperative treatment. Sling as needed for comfort. Nonweightbearing on the right arm for now. Unfortunately, this will make ambulation very difficult, as she normally uses a walker for mobilization. Avoid shoulder abduction past 90 degrees. Follow-up in orthopedics clinic with Dr. Rivas 2 to 3 weeks after discharge. Call [facility] [place] at [phone] to make an appointment. History of Present Illness Reason for Consultation: Right distal clavicle fracture Attending Physician: Johny Garces MD History of Present Illness Ms. Tolliver is an 85-year old female with decompensated heart failure and a history of a stroke with left-sided hemiparesis had multiple falls yesterday. On 1 of these falls, she impacted her right shoulder. Since then, she has had pain in the distal clavicle area, although maintains fairly good shoulder motion. Of note, she normally uses a walker for ambulation due to her left sided weakness. Allergies Allergy/AdvReac Type Severity Reaction Status Date / Time LINH Inhibitors Allergy Unknown UNK Verified 09/06/20 15:30 aminophylline Allergy Unknown Unknown Verified 09/06/20 15:31 amoxicillin Allergy Unknown SWELLING Verified 11/12/19 07:42 OF HANDS Penicillins Allergy Unknown Unknown Verified 09/06/20 14:39 Home Medications Medication Instructions Recorded Confirmed Type clopidogrel 75 mg tablet 75 mg PO QAM tab 11/21/18 09/06/20 History aspirin 81 mg PO QAM 11/12/19 09/06/20 History cholecalciferol (vitamin D3) 25 mcg PO HS 11/12/19 09/06/20 History [Vitamin D3] gabapentin 100 mg PO QID 11/12/19 09/06/20 History levothyroxine 88 mcg PO 6XWK 11/12/19 09/06/20 History losartan 100 mg PO HS 11/12/19 09/06/20 History rosuvastatin 10 mg PO HS 11/12/19 09/06/20 History Patient History Medical History History of CVA (cerebrovascular accident) HLD (hyperlipidemia) HTN (hypertension) Hypothyroidism Left hemiparesis Surgical History History of appendectomy History of bilateral hip replacements History of cholecystectomy History of loop electrical excision procedure (LEEP) History of nasal polypectomy Hx of total knee arthroplasty Family History Other Hypertension Stroke Denies family history of Ovarian cancer Breast cancer Social History Smoking Status: Former smoker Hx Alcohol Use: No Hx Substance Use: No Preferred Language: English Communication Ability: Effective Product Blending Supervisor Required: No Beliefs That Will Affect Care: None marital status: Current Living Situation: Spouse Other Information That Helps Us Care for You: No Feels Safe at Home: Yes Safety Concerns: Feels Safe At This Time Assistive Devices: Glasses and Walker Physical Exam Physical Exam: Examination of the right shoulder reveals no gross deformity. Very mild swelling over the distal clavicle area. Mild tenderness to palpation there. She actually maintains fairly good shoulder motion, with abduction up to at least 95 degrees without significant pain. Motor and sensory function is intact distally. Results & Data ([facility]) Vital Signs (Past 12 Hours) Vital Signs Temp Pulse Resp BP Pulse Ox 09/07/20 07:40 36.4 C L 95 H 21 129/86 95 09/07/20 04:11 36.5 C 94 H 21 143/83 H 95 09/06/20 23:18 36.3 C L 95 H 24 137/90 96 Diagnostic Findings Right shoulder x-rays were reviewed. They show a minimally displaced distal clavicle fracture. No significant proximal migration of the clavicular shaft, no displacement at the AC joint. Left humerus x-rays were also reviewed. They are unremarkable without acute fracture. (1) Closed fracture of distal clavicle Encounter type: initial encounter Fracture alignment: nondisplaced Laterality: right Qualified Code(s): S42.034A - Nondisplaced fracture of lateral end of right clavicle, initial encounter for closed fracture
[2020-09-07] MEDS: FUROSEMIDE 40 MG in SYRINGE 0 ML IV SCH (10:53)
[2020-09-07] MEDS: ASPIRIN 81 MG ECTAB PO SCH (10:53)
[2020-09-07] MEDS: DOXYCYCLINE HYCLATE 100 MG CAP PO SCH ×2 (10:53→21:31)
[2020-09-07] MEDS: GABAPENTIN 100 MG CAP PO SCH ×4 (10:54→21:30)
--- NOTE | 2020-09-07 13:43 | Cardiology Progress Note ---
Date of Service September 07, 2020 Assessment & Plan (1) Acute decompensated heart failure: (2) Atrial fibrillation with RVR: (3) History of CVA (cerebrovascular accident): (4) Multiple falls: (5) Closed fracture of distal clavicle: (6) Thoracic aortic aneurysm (TAA): (1) Acute decompensated heart failure: -Chest x-ray with findings of small bilateral pleural effusions, mild pulmonary edema. -Echocardiogram with findings of moderate global left ventricular hypokinesis, LVEF 35 to 40%, severe left atrial enlargement, moderate to severe aortic valve stenosis, mild pulmonary hypertension, estimated pulmonary artery systolic pressure 45 mmHg. Compared to the previous study performed in July,, atrial fibrillation has replaced sinus rhythm, moderate to severe aortic valve stenosis now present. There has been interval decline in the LVEF. -Continue furosemide 40 mg IV daily. (2) Atrial fibrillation with RVR: -Add low-dose metoprolol tartrate 25 mg twice daily. -The question with regards to stroke prophylaxis is challenging in this case. Patient is frail, and presents because of recurrent mechanical falls as her chief complaint with resultant clavicle fracture this admission. She however has had a past stroke with remote lacunar infarct of the right thalamus once again demonstrated on CT imaging on presentation, without acute intracranial pathology. -She is on low-dose unfractioned heparin at present. -She is is a high risk candidate for anticoagulation as well as for thrombotic complication in the setting of atrial fibrillation. -We will explore potential [id number]-[id number] cost for Eliquis. I think 2.5 mg twice daily would be an appropriate dose for her given her age greater than 80, and weight of 60 kg. -For now, continue heparin pending further evaluation. -She is not a very robust candidate in terms of considering intervention from the standpoint of ischemic heart disease or her aortic valve stenosis. (3) History of CVA (cerebrovascular accident): -As noted above. Continue aspirin plus heparin for now. (4) Multiple falls: -As noted. (5) Closed fracture of distal clavicle: -Orthopedics input noted and appreciated. Nonoperative therapy. (6) Thoracic aortic aneurysm (TAA): -Past mild enlargement, 4.1 cm, of proximal ascending aorta, CT scan, 2019. Admission and Anticipated Discharge Date Admission Date: September 06, 2020 Subjective Patient seen in follow-up. No cardiac complaints. Hard of hearing. Telemetry reveals atrial fibrillation with controlled ventricular rate in the range of 80 to 90 bpm, with occasional PVCs. Review of Systems Review of Systems: Comprehensive review of systems unobtainable due to hearing impairment, and cognitive impairment. Physical Exam Physical Exam: Temp Pulse Resp BP Pulse Ox 36.4 C L 98 H 17 148/91 H 96 09/07/20 11:42 09/07/20 11:42 09/07/20 11:42 09/07/20 11:42 09/07/20 11:42 Constitutional: Thin, frail, no acute distress, significant kyphosis Respiratory: no cough Auscultation: + diminished lung sounds (Mildly reduced breath sounds at the bases) Cardiovascular: Rate/Rhythm: + irregularly irregular Heart Sounds: + murmur (1/6 systolic murmur) Gastrointestinal (Abdomen): normal bowel sounds, soft, nontender, no hepatosplenomegaly Neurologic: Follows commands, chronic left hemiparesis Results & Data ([facility]) Vital Signs (Past 12 Hours) Vital Signs Temp Pulse Resp BP Pulse Ox 09/07/20 11:42 36.4 C L 98 H 17 148/91 H 96 09/07/20 07:40 36.4 C L 95 H 21 129/86 95 09/07/20 04:11 36.5 C 94 H 21 143/83 H 95 Laboratory Results Cardiac Enzymes 09/06/20 Range/Units 13:38 AST 13 L (15-37) U/L Troponin I 0.028 (0-0.045) ng/ml Coagulation 09/06/20 09/06/20 09/07/20 Range/Units 13:38 13:38 00:21 PT 11.2 (9.0-12.0) Seconds APTT 24.8 32.8 H (21.0-31.0) Seconds 09/07/20 Range/Units 07:38 PT (9.0-12.0) Seconds APTT 42.5 H (21.0-31.0) Seconds CBC 09/06/20 09/07/20 Range/Units 13:38 07:38 WBC 1.43 L 1.35 L (4.8-10.8) K/uL RBC 4.51 4.35 (4.2-5.4) M/uL Hgb 11.5 L 10.9 L (12.0-16.0) g/dL Hct 37.1 34.7 L (37-47) % Plt Count 149 127 L (130-400) K/uL Neut # (Auto) 0.60 L* (1.4-6.5) K/uL Lymph # (Auto) 0.45 L (1.2-3.4) K/uL Kerr # (Auto) 0.35 (0.11-0.59) K/uL Eos # (Auto) 0.02 (0-0.5) K/uL Baso # (Auto) 0.01 (0-0.2) K/uL Comprehensive Metabolic Panel 09/06/20 09/07/20 Range/Units 13:38 07:38 Sodium 144 142 (136-145) mmol/L Potassium 3.4 L 4.0 D (3.5-5.1) mmol/L Chloride 112 H 109 H (98-107) mmol/L Carbon Dioxide 25 26 (21-32) mmol/L BUN 18 17 (7-18) mg/dl Creatinine 1.05 0.96 (0.6-1.2) mg/dl Glucose 116 H 120 H (70-99) mg/dl Calcium 10.8 H 10.4 H (8.5-10.1) mg/dl AST 13 L (15-37) U/L ALT 15 (12-78) U/L Alkaline Phosphatase 98 (45-117) U/L Total Protein 6.3 L (6.4-8.2) gm/dl Albumin 3.9 (3.4-5.0) gm/dl Intake and Output 09/06/20 09/07/20 09/07/20 22:59 06:59 14:59 Intake Total 490 / 1034.45 488.2 / 1034.45 116.800 / 116.800 Output Total 1000 / 2800 1800 / 2800 Balance -510 / -1765.55 -1311.8 / -1765.55 116.800 / 116.800 Intake: IV 50 / 194.45 88.2 / 194.45 116.800 / 116.800 Heparin Sodium/Dextrose 25,000 88.2 / 88.2 116.800 / 116.800 units In 500 ml @ 800 UNITS/HR 16 mls/hr IV .Q24H [facility] Rx#: [id number] cefTRIAXone SODIUM 1,000 mg In 50 / 50 50 ml @ 100 mls/hr IV NOW STA Rx#:[id number] Oral 440 / 840 400 / 840 Output: Urine Amount (Catheter) 1000 / 2800 1800 / 2800 Biggs/Indwelling 1000 / 2800 1800 / 2800 Other: Weight 66.8 kg 60.7 kg Weight Measurement Method [facility] Diagnostic Findings EKG performed this morning 09/07/2020 revealed atrial fibrillation at 95 bpm, with nonspecific diffuse T wave flattening. (1) Closed fracture of distal clavicle Encounter type: initial encounter Fracture alignment: nondisplaced Laterality: right Qualified Code(s): S42.034A - Nondisplaced fracture of lateral end of right clavicle, initial encounter for closed fracture
[2020-09-07] MEDS ORDERED: METOPROLOL TARTRATE 25 MG TAB PO ONE (13:45)
--- NOTE | 2020-09-07 14:09 | Hospitalist Progress Note ---
Date of Service September 07, 2020 Assessment & Plan (1) Acute decompensated heart failure: Patient ia an 85 yr female with 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 Acute on chronic systolic heart failure CXR:Cardiomegaly with vascular congestion and reticular opacities suggestive of pulmonary edema. Small pleural effusions. Asymmetric left lung base opacities suggestive of atelectasis versus pneumonia. ECHO: Mild concentric LVH, moderate global hypokinesis of left ventricle, EF 35 to 40%, left atrium is severely dilated, mild pulmonary hypertension is present. 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 BNP:7384 Continue IV Lasix Monitor I's and O's, daily weight Appreciate cardiology input Saturating well on room air (2) Atrial fibrillation with RVR: A fib with RVR Continue metoprolol Currently on IV heparin High risk for falls, elderly--need to assess risks versus benefits on long-term anticoagulation Appreciate input (3) Multiple falls: (4) Ambulatory dysfunction: (5) Closed fracture of distal clavicle: Multiple falls Ambulatory dysfunction H/O hemiparesis from former CVA CT head without acute intracranial abnormality Shoulder XR with nondisplaced fracture of the distal right clavicle Appreciate Orthopedics Input Conservative Management Needs follow-up with Dr. Rivas 2 to 3 weeks upon discharge PT/OT (6) UTI (urinary tract infection): Abnormal UA UTI ruled out Urine Cx: Skin kishore Denies dysuria Empirically received Rocephin (7) Neutropenia: H/O Chronic leukopenia since 2018. Followed with Dr. Yang at [facility] Bone marrow biopsy was recommended but patient declined ANC 0.60 Neutropenic precautions (8) History of CVA (cerebrovascular accident): (9) Left hemiparesis: History of CVA in 2015 with left hemiparesis Continue aspirin Hold plavix while on IV heparin Continue statin (10) HTN (hypertension): Continue losartan (11) Hypothyroidism: Continue levothyroxine Possible bronchitis CXR as above Negative procalcitonin Continue doxycycline DVT Px: IV heparin Code status: FULL CODE Admission and Anticipated Discharge Date Admission Date: September 06, 2020 Subjective Patient is seen and examined at bedside States having right clavicular pain Denies chest pain, dyspnea, dizziness, palpitation, nausea, abdominal pain Offers no other complaints Review of Systems Review of Systems: All systems reviewed & are unremarkable except as noted in HPI & below Physical Exam Physical Exam: Physical Exam: Vitals signs as noted above General Appearance:Moderately built and nourished, no apparent distress Head: normocephalic, Atraumatic Eyes: normal inspection, EOMI Neck: supple, Trachea midline Respiratory/Chest: Decreased breath sounds, Scattered crackles Cardiovascular: Irregularly irregular, tachycardia, + murmur Abdomen/GI:Soft, Non tender, Bowel sounds present Extremities/Musculoskeletal:normal inspection, Trace edema, Right Clavicle tender Neurologic/Psych:Alert, awake, grossly no focal neurological deficits , +Hearing impairment Skin: normal color, warm, +Chest Echymosis Results & Data Results & Data ([facility]) Vital Signs (Past 12 Hours) Vital Signs Temp Pulse Resp BP Pulse Ox 09/07/20 11:42 36.4 C L 98 H 17 148/91 H 96 09/07/20 07:40 36.4 C L 95 H 21 129/86 95 09/07/20 04:11 36.5 C 94 H 21 143/83 H 95 Laboratory Results Short CBC 09/07/20 Range/Units 07:38 WBC 1.35 L (4.8-10.8) K/uL Hgb 10.9 L (12.0-16.0) g/dL Hct 34.7 L (37-47) % Plt Count 127 L (130-400) K/uL BMP 09/06/20 09/07/20 13:38 07:38 Sodium 144 142 Potassium 3.4 L 4.0 D Chloride 112 H 109 H Carbon Dioxide 25 26 BUN 18 17 Creatinine 1.05 0.96 Glucose 116 H 120 H Calcium 10.8 H 10.4 H Cardiac Enzymes 09/06/20 Range/Units 13:38 Troponin I 0.028 (0-0.045) ng/ml Liver Function 09/06/20 Range/Units 13:38 Total Bilirubin 1.1 H (0.2-1) mg/dl AST 13 L (15-37) U/L ALT 15 (12-78) U/L Alkaline Phosphatase 98 (45-117) U/L Albumin 3.9 (3.4-5.0) gm/dl (1) Closed fracture of distal clavicle Encounter type: initial encounter Fracture alignment: nondisplaced Laterality: right Qualified Code(s): S42.034A - Nondisplaced fracture of lateral end of right clavicle, initial encounter for closed fracture (2) Neutropenia Neutropenia type: unspecified Qualified Code(s): D70.9 - Neutropenia, unspecified
[2020-09-07 14:32] LABS: Partial Thromboplastin Ratio 1.5; Partial Thromboplastin Time 40.5 Seconds (21.0-31.0)
[2020-09-07] MEDS ORDERED: cefTRIAXone SODIUM 1,000 MG in DEXTROSE 5% 50 ML IV SCH (16:00)
[2020-09-07 21:10] LABS: Partial Thromboplastin Ratio 1.6; Partial Thromboplastin Time 41.1 Seconds (21.0-31.0)
[2020-09-07] MEDS: CHOLECALCIFEROL 1,000 UNITS 25 MCG TAB PO SCH (21:30)
[2020-09-07] MEDS: LOSARTAN POTASSIUM 50 MG TAB PO SCH (21:30)
[2020-09-07] MEDS: ROSUVASTATIN CALCIUM 10 MG TAB PO SCH (21:30)
[2020-09-07] MEDS: METOPROLOL TARTRATE 25 MG TAB PO SCH (21:31)
[2020-09-07] MEDS: HEPARIN SODIUM/DEXTROSE 25,000 UNITS/500 ML BAG IV SCH (23:31)
[2020-09-08 04:21] LABS: Hematocrit (blood only) 33.9 % (37-47); Hemoglobin 10.7 g/dL (12.0-16.0); Mean Corpuscular Hgb Conc 31.6 g/dL (32-36); Mean Corpuscular Volume 79.2 fL (80-100); Mean Platelet Volume 9.8 fL (7.4-10.4); Platelet Count 138 K/uL (130-400); RDW Standard Deviation 54.9 fL (36.4-46.3); Red Blood Count 4.28 M/uL (4.2-5.4); White Blood Count 1.31 K/uL (4.8-10.8)
[2020-09-08 04:37] LABS: Eosinophils # (auto) 0.05 K/uL (0-0.5); Eosinophils % (auto) 3.8 %; Lymphocytes # (auto) 0.49 K/uL (1.2-3.4); Lymphocytes % (auto) 37.4 %; Monocytes # (auto) 0.32 K/uL (0.11-0.59); Monocytes % (auto) 24.4 %; Neutrophils # (auto) 0.45 K/uL (1.4-6.5); Neutrophils % (auto) 34.4 %; Ovalocytes 1+
[2020-09-08 04:42] LABS: BUN Creatinine Ratio 22.4 (10-20); Calcium 9.9 mg/dl (8.5-10.1); Creatinine Clr Calc Pharmacy 36.6 ml/min; Magnesium 2.1 mg/dl (1.8-2.4); Potassium 3.4 mmol/L (3.5-5.1)
[2020-09-08 04:44] LABS: Partial Thromboplastin Time 51.8 Seconds (21.0-31.0)
--- NOTE | 2020-09-08 06:10 | Electrocardiogram Report ---
Test Reason : Blood Pressure : / mmHG Vent. Rate : 095 BPM Atrial Rate : 078 BPM P-R Int : 000 ms QRS Dur : 102 ms QT Int : 354 ms P-R-T Axes : 000 -34 -73 degrees QTc Int : 444 ms Atrial fibrillation with premature ventricular or aberrantly conducted complexes Left axis deviation Nonspecific ST and T wave abnormality Abnormal ECG When compared with ECG of 06-SEP-2020 13:22, Nonspecific T wave abnormality, worse in Anterior leads QT has shortened Confirmed by Kiran Bose ([id number]) on 09/08/2020 6:09:47 AM Referred By: REFERRED SELF Confirmed By:Kiran Bose
[2020-09-08] MEDS ORDERED: POTASSIUM CHLORIDE PWD 20 MEQ PACK PO ONE (08:13)
[2020-09-08] MEDS: ASPIRIN 81 MG ECTAB PO SCH (08:24)
[2020-09-08] MEDS: FUROSEMIDE 40 MG in SYRINGE 0 ML IV SCH (08:24)
[2020-09-08] MEDS: DOXYCYCLINE HYCLATE 100 MG CAP PO SCH ×2 (08:24→21:05)
[2020-09-08] MEDS: GABAPENTIN 100 MG CAP PO SCH ×4 (08:25→21:05)
[2020-09-08] MEDS: METOPROLOL TARTRATE 25 MG TAB PO SCH ×2 (08:25→21:06)
--- NOTE | 2020-09-08 12:04 | Cardiology Progress Note ---
Date of Service September 08, 2020 Assessment & Plan (1) Acute decompensated heart failure: (2) Atrial fibrillation with RVR: (3) History of CVA (cerebrovascular accident): (4) Multiple falls: (5) Closed fracture of distal clavicle: (6) Thoracic aortic aneurysm (TAA): (1) Acute decompensated heart failure: -Chest x-ray with findings of small bilateral pleural effusions, mild pulmonary edema. -Echocardiogram with findings of moderate global left ventricular hypokinesis, LVEF 35 to 40%, severe left atrial enlargement, moderate to severe aortic valve stenosis, mild pulmonary hypertension, estimated pulmonary artery systolic pressure 45 mmHg. Compared to the previous study performed in July,, atrial fibrillation has replaced sinus rhythm, moderate to severe aortic valve stenosis now present. There has been interval decline in the LVEF. -Continue furosemide 40 mg IV daily.Replace potassium. (2) Atrial fibrillation with RVR: -tolerating metoprolol tartrate 25 mg BID. -The question with regards to stroke prophylaxis is challenging in this case. Patient is frail, and presents because of recurrent mechanical falls as her chief complaint with resultant clavicle fracture this admission. She however has had a past stroke with remote lacunar infarct of the right thalamus once again demonstrated on CT imaging on presentation, without acute intracranial pathology. She has a pre-existent microcystic anemia. Nursing tells me she is very unsteady on her feet. -She is on low-dose unfractioned heparin at present. -She is is a high risk candidate for anticoagulation as well as for thrombotic complication in the setting of atrial fibrillation. -We will explore potential hhb-vq-qdrnom cost for Eliqumari. I think 2.5 mg twice daily would be an appropriate dose for her given her age greater than 80, and weight of 60 kg. -For now, continue heparin pending further evaluation. -She is not a very robust candidate in terms of considering intervention from the standpoint of ischemic heart disease or her aortic valve stenosis. - Most prudent approach may be aspirin , metoprolol , and furosemide. -Even if she is in a supervised environment, risk of falls may be prohibitive with multiple recent / past falls. Fall / ambulatory dysfunction noted on previous admission in 10/2019. (3) History of CVA (cerebrovascular accident): -As noted above. Continue aspirin plus heparin for now. (4) Multiple falls: -As noted. (5) Closed fracture of distal clavicle: -Orthopedics input noted and appreciated. Nonoperative therapy. (6) Thoracic aortic aneurysm (TAA): -Past mild enlargement, 4.1 cm, of proximal ascending aorta, CT scan, 2019. Admission and Anticipated Discharge Date Admission Date: September 06, 2020 Subjective Pt seen in follow up. Rate controlled atrial fibrillation noted on telemetry in the 70s to 80s. Physical Exam Physical Exam: Temp Pulse Resp BP Pulse Ox 36.9 C 99 H 18 142/93 H 96 09/08/20 07:58 09/08/20 07:58 09/08/20 07:58 09/08/20 07:58 09/08/20 07:58 Constitutional: Frail Respiratory: normal respiratory effort, lungs clear to auscultation Cardiovascular: Rate/Rhythm: + irregularly irregular Heart Sounds: + murmur (I/ SM) Gastrointestinal (Abdomen): normal bowel sounds, soft, nontender, no hepatosplenomegaly Neurologic: chronic left sided weakness Results & Data ([facility]) Vital Signs (Past 12 Hours) Vital Signs Temp Pulse Resp BP Pulse Ox 09/08/20 07:58 36.9 C 99 H 18 142/93 H 96 09/08/20 02:54 36.4 C L 77 20 127/86 96 (1) Closed fracture of distal clavicle Encounter type: initial encounter Fracture alignment: nondisplaced Laterality: right Qualified Code(s): S42.034A - Nondisplaced fracture of lateral end of right clavicle, initial encounter for closed fracture
--- NOTE | 2020-09-08 15:27 | Hospitalist Progress Note ---
Date of Service September 08, 2020 Assessment & Plan (1) Acute decompensated heart failure: Patient ia an 85 yr female with 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 Acute on chronic systolic heart failure CXR:Cardiomegaly with vascular congestion and reticular opacities suggestive of pulmonary edema. Small pleural effusions. Asymmetric left lung base opacities suggestive of atelectasis versus pneumonia. ECHO: Mild concentric LVH, moderate global hypokinesis of left ventricle, EF 35 to 40%, left atrium is severely dilated, mild pulmonary hypertension is present. 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 BNP:7384 Continue IV Lasix Monitor I's and O's, daily weight Appreciate cardiology input Saturating well on room air Diuresing well (2) Atrial fibrillation with RVR: A fib with RVR Continue metoprolol Currently on IV heparin High risk for falls, elderly--need to assess risks versus benefits on long-term anticoagulation Appreciate input Continue current medications (3) Multiple falls: (4) Ambulatory dysfunction: (5) Closed fracture of distal clavicle: Multiple falls Ambulatory dysfunction H/O hemiparesis from former CVA CT head without acute intracranial abnormality Shoulder XR with nondisplaced fracture of the distal right clavicle Appreciate Orthopedics Input Conservative Management Needs follow-up with Dr. Rivas 2 to 3 weeks upon discharge PT/OT (6) UTI (urinary tract infection): Abnormal UA UTI ruled out Urine Cx: Skin kishore Denies dysuria Empirically received Rocephin (7) Neutropenia: H/O Chronic leukopenia since 2018. Followed with Dr. Yang at [facility] Bone marrow biopsy was recommended but patient declined ANC 0.60 Neutropenic precautions (8) History of CVA (cerebrovascular accident): (9) Left hemiparesis: History of CVA in 2015 with left hemiparesis Continue aspirin Hold plavix while on IV heparin Continue statin (10) HTN (hypertension): Continue losartan (11) Hypothyroidism: Continue levothyroxine Possible bronchitis CXR as above Negative procalcitonin Continue doxycycline DVT Px: IV heparin Code status: FULL CODE Disposition PT OT prior to discharge Admission and Anticipated Discharge Date Admission Date: September 06, 2020 Subjective Patient is seen and examined at bedside States having discomfort with sling use Denies any significant dyspnea Admits to having right clavicle pain with movement Denies chest pain, dizziness, palpitation, nausea, abdominal pain Review of Systems Review of Systems: All systems reviewed & are unremarkable except as noted in HPI & below Physical Exam Physical Exam: Physical Exam: Vitals signs as noted above General Appearance:Moderately built and nourished, no apparent distress Head: normocephalic, Atraumatic Eyes: normal inspection, EOMI Neck: supple, Trachea midline Respiratory/Chest: Decreased breath sounds, Scattered crackles Cardiovascular: Irregularly irregular, tachycardia, + murmur Abdomen/GI:Soft, Non tender, Bowel sounds present Extremities/Musculoskeletal:normal inspection, Trace edema, Right Clavicle tender Neurologic/Psych:Alert, awake, grossly no focal neurological deficits , +Hearing impairment Skin: normal color, warm, +Chest Echymosis Results & Data Results & Data ([facility]) Vital Signs (Past 12 Hours) Vital Signs Temp Pulse Resp BP Pulse Ox 09/08/20 14:48 36.5 C 87 16 98/66 L 94 09/08/20 12:00 73 18 135/92 97 09/08/20 07:58 36.9 C 99 H 18 142/93 H 96 Laboratory Results Short CBC 09/08/20 Range/Units 04:03 WBC 1.31 L (4.8-10.8) K/uL Hgb 10.7 L (12.0-16.0) g/dL Hct 33.9 L (37-47) % Plt Count 138 (130-400) K/uL BMP 09/08/20 04:03 Sodium 143 Potassium 3.4 L Chloride 108 H Carbon Dioxide 27 BUN 21 H Creatinine 0.93 Glucose 147 H Calcium 9.9 (1) Closed fracture of distal clavicle Encounter type: initial encounter Fracture alignment: nondisplaced Laterality: right Qualified Code(s): S42.034A - Nondisplaced fracture of lateral end of right clavicle, initial encounter for closed fracture (2) UTI (urinary tract infection) Hematuria presence: without hematuria Urinary tract infection type: acute cys titis Qualified Code(s): N30.00 - Acute cystitis without hematuria (3) Neutropenia Neutropenia type: unspecified Qualified Code(s): D70.9 - Neutropenia, unspecified (4) HTN (hypertension) Hypertension type: essential hypertension Qualified Code(s): I10 - Essential (primary) hypertension
[2020-09-08] MEDS ORDERED: DOCUSATE SODIUM 100 MG CAP PO PRN (16:38)
[2020-09-08] MEDS ORDERED: DOCUSATE SODIUM 100 MG CAP PO ONE (17:00)
[2020-09-08] MEDS: HEPARIN SODIUM/DEXTROSE 25,000 UNITS/500 ML BAG IV SCH (19:25)
[2020-09-08] MEDS: ROSUVASTATIN CALCIUM 10 MG TAB PO SCH (21:05)
[2020-09-08] MEDS: LOSARTAN POTASSIUM 50 MG TAB PO SCH (21:05)
[2020-09-08] MEDS: CHOLECALCIFEROL 1,000 UNITS 25 MCG TAB PO SCH (21:06)
--- NOTE | 2020-09-08 23:33 | Electrocardiogram Report ---
Test Reason : Blood Pressure : / mmHG Vent. Rate : 091 BPM Atrial Rate : 084 BPM P-R Int : 000 ms QRS Dur : 100 ms QT Int : 366 ms P-R-T Axes : 000 -36 -41 degrees QTc Int : 450 ms Atrial fibrillation with premature ventricular or aberrantly conducted complexes Left axis deviation Minimal voltage criteria for LVH, may be normal variant Nonspecific ST and T wave abnormality Abnormal ECG When compared with ECG of 07-SEP-2020 05:35, No significant change Confirmed by Kiran Bose ([id number]) on 09/08/2020 11:32:42 PM Referred By: REFERRED SELF Confirmed By:Kiran Bose
[2020-09-09] MEDS: HEPARIN SODIUM/DEXTROSE 25,000 UNITS/500 ML BAG IV SCH (02:30)
[2020-09-09] MEDS: LEVOTHYROXINE SODIUM 88 MCG TABLET PO SCH (03:56)
[2020-09-09 06:51] LABS: Hematocrit (blood only) 33.6 % (37-47); Hemoglobin 10.4 g/dL (12.0-16.0); Mean Corpuscular Hemoglobin 25.2 pg (25-34); Mean Corpuscular Volume 81.4 fL (80-100); Mean Platelet Volume 9.6 fL (7.4-10.4); Platelet Count 144 K/uL (130-400); RDW Coefficient of Variation 19.2 % (11.5-14.5); RDW Standard Deviation 56.8 fL (36.4-46.3); Red Blood Count 4.13 M/uL (4.2-5.4)
[2020-09-09 07:14] LABS: Partial Thromboplastin Ratio 1.5; Partial Thromboplastin Time 38.5 Seconds (21.0-31.0)
[2020-09-09 07:19] LABS: Basophils # (auto) 0.01 K/uL (0-0.2); Basophils % (auto) 0.7 %; Eosinophils # (auto) 0.05 K/uL (0-0.5); Eosinophils % (auto) 3.6 %; Lymphocytes # (auto) 0.46 K/uL (1.2-3.4); Lymphocytes % (auto) 32.9 %; Monocytes % (auto) 28.6 %; Neutrophils # (auto) 0.48 K/uL (1.4-6.5); Neutrophils % (auto) 34.2 %; Ovalocytes 1+
[2020-09-09 07:27] LABS: BUN Creatinine Ratio 30.4 (10-20); Calcium 9.9 mg/dl (8.5-10.1); Creatinine Clr Calc Pharmacy 38.7 ml/min; Est GFR (African American) 69.4 ml/min; Est GFR (Non-African American) 59.9 ml/min; Potassium 3.8 mmol/L (3.5-5.1)
[2020-09-09] MEDS: ASPIRIN 81 MG ECTAB PO SCH (07:42)
[2020-09-09] MEDS: METOPROLOL TARTRATE 25 MG TAB PO SCH ×2 (07:42→20:21)
[2020-09-09] MEDS: GABAPENTIN 100 MG CAP PO SCH ×4 (07:43→20:21)
[2020-09-09] MEDS: DOXYCYCLINE HYCLATE 100 MG CAP PO SCH ×2 (07:44→20:20)
[2020-09-09] MEDS ORDERED: POTASSIUM CHLORIDE PWD 20 MEQ PACK PO SCH (09:00)
[2020-09-09] MEDS: FUROSEMIDE 40 MG in SYRINGE 0 ML IV SCH (10:15)
--- NOTE | 2020-09-09 10:47 | Cardiology Progress Note ---
Date of Service September 09, 2020 Assessment & Plan (1) Atrial fibrillation with rapid ventricular response: (2) Acute decompensated heart failure: (3) Aortic stenosis: (4) Thoracic aortic aneurysm: Acute decompensated systolic heart failure. EF 35-40%. Volume status: Compensated. Discontinue IV furosemide. Start oral furosemide, 40 mg/day, in AM. Start spironolactone 12.5 mg/day. Discontinue potassium chloride. Atrial fibrillation. Severe left atrial enlargement. Recommend rate control. Continue metoprolol. Risks and benefits of anticoagulation discussed. Risks of detention anticoagulation currently appear to be greater than the benefit. Moderate to severe aortic valve stenosis. Continue appropriate medical management. Thoracic aortic aneurysm (TAA). Past mild enlargement, 4.1 cm, of proximal ascending aorta, CT scan, 2019. Admission and Anticipated Discharge Date Admission Date: September 06, 2020 Supervising Physician Co-Signing Physician Notes Patient seen and examined with Diego Cooper PA-C. Agree with findings and assessment as above. Patient does not evaluate his volume overloaded and diuretics will be transitioned to oral. Patient declining anticoagulation given ongoing fall risk. Subjective Patient seen and examined. Chart, medications, and telemetry reviewed. Lizette athing has significantly improved. Cough has improved. No chest pain. No tachypalpitations. Telemetry reviewed, demonstrating atrial fibrillation with PVCs versus aberrantly conducted beats, heart rate ranging in the 70-90 bpm range. I/O's negative 3,926 mL's overall. Weight is down 6.9 kg since admission. Lone complaint voiced is that of constipation. Review of Systems Review of Systems: All systems reviewed & are unremarkable except as noted in HPI & below Physical Exam Physical Exam: General: Alert. Oriented. No acute distress. Hard of hearing. Corporative. HENT: Normocephalic. Atraumatic. Eyes: PER. Conjunctiva pink, sclera clear. Neck: Transmitted systolic murmur versus bilateral carotid bruits. Normal JVD. + HJR. Heart: Irregularly irregular in the 80's. Grade II/ systolic murmur. No diastolic murmur. No rub. No gallop. PMI is nondisplaced. Lungs: Decreased at the bases. Clear. Abdomen: +BS. Soft. Nontender. No masses or organomegaly. Extremities: No clubbing, cyanosis, or edema. Limited neurological examination is without focal deficits. Pulses: radial=2/4, posterior tibial=1/4. Results & Data ([facility]) Vital Signs (Past 12 Hours) Vital Signs Temp Pulse Pulse Resp BP Pulse Ox Pulse Ox 09/09/20 08:55 96 09/09/20 07:25 36.9 C 88 18 128/77 96 09/09/20 03:53 36.5 C 81 16 129/67 96 09/08/20 23:56 36.5 C 75 16 98/72 L 96 09/08/20 23:00 75 Laboratory Results Laboratory Results - last 24 hr 09/09/20 09/09/20 09/09/20 06:38 06:38 06:38 WBC 1.40 L RBC 4.13 L Hgb 10.4 L Hct 33.6 L MCV 81.4 MCH 25.2 MCHC 31.0 L RDW Std Deviation 56.8 H RDW Coeff of Josue 19.2 H Plt Count 144 MPV 9.6 Immature Gran % (Auto) 0.0 Neut % (Auto) 34.2 Lymph % (Auto) 32.9 Barbour % (Auto) 28.6 Eos % (Auto) 3.6 Baso % (Auto) 0.7 Neut # (Auto) 0.48 L* Lymph # (Auto) 0.46 L Barbour # (Auto) 0.40 Eos # (Auto) 0.05 Baso # (Auto) 0.01 Immature Gran # (Auto) 0.00 Ovalocytes 1+ APTT 38.5 H PTT Ratio 1.5 Sodium 144 Potassium 3.8 Chloride 110 H Carbon Dioxide 26 Anion Gap 8.0 BUN 27 H Creatinine 0.88 Est Cr Clr Drug Dosing 38.7 Est GFR ( Amer) 69.4 Est GFR (Non-Af Amer) 59.9 BUN/Creatinine Ratio 30.4 H Glucose 122 H Calcium 9.9
[2020-09-09] MEDS ORDERED: bisacodyL 10 MG SUPP PR PRN (11:35)
[2020-09-09] MEDS ORDERED: bisacodyL 10 MG SUPP PR ONE (11:35)
[2020-09-09] MEDS ORDERED: SOD PHOSPHATE/SOD BIPHOSPHATE ENEMA 132 ML BTL PR PRN (11:35)
--- NOTE | 2020-09-09 14:17 | Hospitalist Progress Note ---
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 Acute on chronic systolic heart failure CXR:Cardiomegaly with vascular congestion and reticular opacities suggestive of pulmonary edema. Small pleural effusions. Asymmetric left lung base opacities suggestive of atelectasis versus pneumonia. ECHO: Mild concentric LVH, moderate global hypokinesis of left ventricle, EF 35 to 40%, left atrium is severely dilated, mild pulmonary hypertension is present. 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 BNP:7384 IV Lasix discontinued Monitor I's and O's, daily weight Appreciate cardiology input Transition to p.o. furosemide 40 mg daily Also started on spironolactone 12.5 mg daily (2) Atrial fibrillation with RVR: A fib with RVR Continue metoprolol Currently on IV heparin High risk for falls, elderly--High risk for long-term anticoagulation Appreciate input (3) Multiple falls: (4) Ambulatory dysfunction: (5) Closed fracture of distal clavicle: Multiple falls Ambulatory dysfunction H/O hemiparesis from former CVA CT head without acute intracranial abnormality Shoulder XR with nondisplaced fracture of the distal right clavicle Appreciate Orthopedics Input Conservative Management Needs follow-up with Dr. Rivas 2 to 3 weeks upon discharge PT/OT Constipation Continue Bowel regimen Obtain KUB (6) UTI (urinary tract infection): Abnormal UA UTI ruled out Urine Cx: Skin kishore Denies dysuria Empirically received Rocephin (7) Neutropenia: H/O Chronic leukopenia since 2018. Followed with Dr. Yang at [facility] Bone marrow biopsy was recommended but patient declined ANC: 450 Neutropenic precautions (8) History of CVA (cerebrovascular accident): (9) Left hemiparesis: History of CVA in 2015 with left hemiparesis Continue aspirin Hold plavix while on IV heparin Continue statin (10) HTN (hypertension): Continue losartan (11) Hypothyroidism: Continue levothyroxine Possible bronchitis CXR as above Negative procalcitonin Continue doxycycline Day #3 DVT Px: IV heparin Code status: FULL CODE Disposition PT OT: May need SNF placement Admission and Anticipated Discharge Date Admission Date: September 06, 2020 Subjective Patient is seen and examined at bedside Reports constipation States having right shoulder pain only with movement Denies chest pain, dizziness, palpitation, nausea, abdominal pain Discussed with Cardiology today Review of Systems Review of Systems: All systems reviewed & are unremarkable except as noted in HPI & below Physical Exam Physical Exam: Physical Exam: Vitals signs as noted above General Appearance:Moderately built and nourished, no apparent distress Head: normocephalic, Atraumatic Eyes: normal inspection, EOMI Neck: supple, Trachea midline Respiratory/Chest: Decreased breath sounds, Scattered crackles Cardiovascular: Irregularly irregular, tachycardia, + murmur Abdomen/GI:Soft, Non tender, Bowel sounds present Extremities/Musculoskeletal:normal inspection, Trace edema, Right Clavicle tender Neurologic/Psych:Alert, awake, grossly no focal neurological deficits , +Hearing impairment Skin: normal color, warm, +Chest Echymosis Results & Data Results & Data ([facility]) Vital Signs (Past 12 Hours) Vital Signs Temp Pulse Resp BP Pulse Ox Pulse Ox 09/09/20 11:26 36.5 C 92 H 18 143/92 H 95 09/09/20 08:55 96 09/09/20 07:25 36.9 C 88 18 128/77 96 09/09/20 03:53 36.5 C 81 16 129/67 96 (1) Closed fracture of distal clavicle Encounter type: initial encounter Fracture alignment: nondisplaced Laterality: right Qualified Code(s): S42.034A - Nondisplaced fracture of lateral end of right clavicle, initial encounter for closed fracture (2) UTI (urinary tract infection) Hematuria presence: without hematuria Urinary tract infection type: acute cystitis Qualified Code(s): N30.00 - Acute cystitis without hematuria (3) Neutropenia Neutropenia type: unspecified Qualified Code(s): D70.9 - Neutropenia, unspecified (4) HTN (hypertension) Hypertension type: essential hypertension Qualified Code(s): I10 - Essential (primary) hypertension
--- NOTE | 2020-09-09 14:24 | XRay Report ---
XR KUB/Abdomen 1 view CLINICAL HISTORY: constipation COMPARISON STUDY: No previous studies for comparison. 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 There are vascular calcifications. There is a thorac olumbar dextroscoliosis. There is no pathologic bowel dilatation. Pelvic basin calcifications while n onspecific are likely vascular. There is mild to moderate rectosigmoid stool. IMPRESSION: 1. Nonobstructive bowel gas pattern. ACT 112: Negative or not required by law. Electronically signed by: Elan Moore M.D. 09/09/2020 2:23 PM
[2020-09-09 16:37] LABS: Partial Thromboplastin Ratio 1.3; Partial Thromboplastin Time 34.4 Seconds (21.0-31.0)
[2020-09-09] MEDS ORDERED: HEPARIN SOD (PORCINE) 1000 UNIT/ML IV ONE (18:26)
[2020-09-09] MEDS ORDERED: HEPARIN IV BOLUS 2,000 UNITS in SYRINGE 0 ML IV ONE (18:30)
[2020-09-09] MEDS: CHOLECALCIFEROL 1,000 UNITS 25 MCG TAB PO SCH (20:19)
[2020-09-09] MEDS: ROSUVASTATIN CALCIUM 10 MG TAB PO SCH (20:20)
[2020-09-09] MEDS: DOCUSATE SODIUM 100 MG CAP PO SCH (20:20)
[2020-09-09] MEDS: LOSARTAN POTASSIUM 50 MG TAB PO SCH (20:21)
[2020-09-09] MEDS: SENNA 8.6 MG TAB PO SCH (20:22)
[2020-09-10 00:52] LABS: Partial Thromboplastin Ratio 2.5
[2020-09-10 01:07] LABS: Partial Thromboplastin Time 65.2 Seconds (21.0-31.0)
[2020-09-10] MEDS: HEPARIN SODIUM/DEXTROSE 25,000 UNITS/500 ML BAG IV SCH (04:56)
[2020-09-10] MEDS: LEVOTHYROXINE SODIUM 88 MCG TABLET PO SCH (04:57)
[2020-09-10 05:57] LABS: Eosinophils # (auto) 0.03 K/uL (0-0.5); Eosinophils % (auto) 1.2 %; Hematocrit (blood only) 33.6 % (37-47); Hemoglobin 10.6 g/dL (12.0-16.0); Lymphocytes % (auto) 24.7 %; Mean Corpuscular Hemoglobin 25.1 pg (25-34); Mean Corpuscular Hgb Conc 31.5 g/dL (32-36); Mean Corpuscular Volume 79.4 fL (80-100); Mean Platelet Volume 9.8 fL (7.4-10.4); Monocytes # (auto) 0.52 K/uL (0.11-0.59); Monocytes % (auto) 21.4 %; Neutrophils # (auto) 1.28 K/uL (1.4-6.5); Neutrophils % (auto) 52.7 %; Platelet Count 147 K/uL (130-400); RDW Standard Deviation 55.4 fL (36.4-46.3); Red Blood Count 4.23 M/uL (4.2-5.4); White Blood Count 2.43 K/uL (4.8-10.8)
[2020-09-10 06:25] LABS: BUN Creatinine Ratio 27.1 (10-20); Calcium 9.3 mg/dl (8.5-10.1); Creatinine Clr Calc Pharmacy 32.4 ml/min; Est GFR (African American) 56.1 ml/min; Est GFR (Non-African American) 48.4 ml/min; Potassium 3.3 mmol/L (3.5-5.1)
[2020-09-10] MEDS ORDERED: POTASSIUM CHLORIDE PWD 20 MEQ PACK PO ONE (07:47)
[2020-09-10] MEDS: METOPROLOL TARTRATE 25 MG TAB PO SCH ×2 (08:02→20:25)
[2020-09-10] MEDS: DOXYCYCLINE HYCLATE 100 MG CAP PO SCH ×2 (08:02→20:24)
[2020-09-10] MEDS: ASPIRIN 81 MG ECTAB PO SCH (08:03)
[2020-09-10] MEDS: GABAPENTIN 100 MG CAP PO SCH ×4 (08:03→20:24)
[2020-09-10] MEDS: DOCUSATE SODIUM 100 MG CAP PO SCH ×2 (08:03→20:24)
[2020-09-10] MEDS: FUROSEMIDE 40 MG TAB PO SCH (08:04)
[2020-09-10] MEDS: SPIRONOLACTONE 12.5 MG TAB PO SCH (08:04)
--- NOTE | 2020-09-10 08:44 | Cardiology Progress Note ---
Date of Service September 10, 2020 Assessment & Plan (1) Atrial fibrillation with rapid ventricular response: (2) Acute decompensated heart failure: (3) Aortic stenosis: (4) Thoracic aortic aneurysm: Presentation with acute decompensated systolic heart failure. EF 35-40%. IV furosemide discontinued on 09/09/2020. Volume status at present: Compensated. Continue oral furosemide at 40 mg/day along with spironolactone at 12.5 mg/day. Supplement potassium orally today noting mild hypokalemia on AM labs. Atrial fibrillation. Severe left atrial enlargement. Recommend rate control. Increase metoprolol to 37.5 mg twice a day for additional heart rate control. If hypotension observed following titration of metoprolol would reduce losartan dosing. 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 Moderate to severe aortic valve stenosis. Continue appropriate medical management. Thoracic aortic aneurysm (TAA). Past mild enlargement, 4.1 cm, of proximal ascending aorta, CT scan, 2019. Admission and Anticipated Discharge Date Admission Date: September 06, 2020 Supervising Physician Co-Signing Physician Notes Patient seen and examined with Diego Cooper PA-C. Agree with findings and assessment as above. States the cough is improved today. Denies any other cardiac complaints. No further cardiac testing or intervention necessary at this time. Subjective Patient seen and examined. Chart, medications, and telemetry reviewed. Lone complaint, on questioning, is right arm discomfort with movement. No cough. No chest congestion. No chest pain. Breathing is good. No palpitations. Telemetry reviewed, demonstrating atrial fibrillation with PVCs versus aberra ntly conducted beats, heart rates in the 80's and 90's. I/O's - 5,041 mL's overall. Weight on admission was 66.8 kg. Weight today was 59 kg. Review of Systems Review of Systems: Comprehensive review of systems unobtainable due to hearing impairment, and cognitive impairment. Physical Exam Physical Exam: General: Alert. Oriented. No acute distress. Hard of hearing. HENT: Normocephalic. Atraumatic. Eyes: PER. Conjunctiva pink, sclera clear. Neck: Transmitted systolic murmur versus bilateral carotid bruits. 2 cm JVD. No HJR. Heart: Irregularly irregular in the 90's. Grade II/ systolic murmur. No diastolic murmur. No rub. No gallop. PMI is nondisplaced. Lungs: Decreased at the bases. Clear. Abdomen: +BS. Soft. Nontender. No masses or organomegaly. Extremities: No clubbing, cyanosis, or edema. Limited neurological examination is without focal deficits. Pulses: radial=2/4, posterior tibial=1/4. Results & Data ([facility]) Vital Signs (Past 12 Hours) Vital Signs Temp Pulse Resp BP BP Pulse Ox 09/10/20 07:59 36.8 C 78 18 101/69 98 09/10/20 04:44 36.9 C 88 16 112/77 95 09/10/20 00:07 36.8 C 108 H 20 117/77 95
[2020-09-10] MEDS ORDERED: POTASSIUM CHLORIDE PWD 20 MEQ PACK PO SCH (09:00)
[2020-09-10] MEDS ORDERED: POTASSIUM CHLORIDE 10 MEQ TABCR PO SCH (09:00)
--- NOTE | 2020-09-10 15:37 | Hospitalist Progress Note ---
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 Acute on chronic systolic heart failure CXR:Cardiomegaly with vascular congestion and reticular opacities suggestive of pulmonary edema. Small pleural effusions. Asymmetric left lung base opacities suggestive of atelectasis versus pneumonia. ECHO: Mild concentric LVH, moderate global hypokinesis of left ventricle, EF 35 to 40%, left atrium is severely dilated, mild pulmonary hypertension is present. 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 BNP:7384 IV Lasix discontinued Monitor I's and O's, daily weight Appreciate cardiology input Transition to p.o. furosemide 40 mg daily Also started on spironolactone 12.5 mg daily Continue current medication Monitor volume status (2) Atrial fibrillation with RVR: A fib with RVR Continue metoprolol Currently on IV heparin High risk for falls, elderly--High risk for long-term anticoagulation Appreciate input (3) Multiple falls: (4) Ambulatory dysfunction: (5) Closed fracture of distal clavicle: Multiple falls Ambulatory dysfunction H/O hemiparesis from former CVA CT head without acute intracranial abnormality Shoulder XR with nondisplaced fracture of the distal right clavicle Appreciate Orthopedics Input Conservative Management Needs follow-up with Dr. Rivas 2 to 3 weeks upon discharge PT/OT Constipation Continue Bowel regimen KUB: Nonobstructive bowel gas pattern. Had BM today (6) UTI (urinary tract infection): Abnormal UA UTI ruled out Urine Cx: Skin kishore Denies dysuria Empirically received Rocephin (7) Neutropenia: H/O Chronic leukopenia since 2018. Followed with Dr. Yang at [facility] Bone marrow biopsy was recommended but patient declined ANC: 450 Neutropenic precautions (8) History of CVA (cerebrovascular accident): (9) Left hemiparesis: History of CVA in 2015 with left hemiparesis Continue aspirin Hold plavix while on IV heparin Continue statin (10) HTN (hypertension): Continue losartan (11) Hypothyroidism: Continue levothyroxine Possible bronchitis CXR as above Negative procalcitonin Continue doxycycline Day #4 DVT Px: IV heparin Code status: FULL CODE Disposition PT OT: May need SNF placement Plan to discharge to rehab facility when accepted Admission and Anticipated Discharge Date Admission Date: September 06, 2020 Subjective Patient is seen and examined at bedside Has minimal cough today Had bowel movement Offers no complaints Heart rate is controlled Denies chest pain, dizziness, palpitation, nausea, abdominal pain Review of Systems Review of Systems: All systems reviewed & are unremarkable except as noted in HPI & below Physical Exam Physical Exam: Physical Exam: Vitals signs as noted above General Appearance:Moderately built and nourished, no apparent distress Head: normocephalic, Atraumatic Eyes: normal inspection, EOMI Neck: supple, Trachea midline Respiratory/Chest: Decreased breath sounds, Scattered crackles Cardiovascular: Irregularly irregular, tachycardia, + murmur Abdomen/GI:Soft, Non tender, Bowel sounds present Extremities/Musculoskeletal:normal inspection, Trace edema, Right Clavicle tender Neurologic/Psych:Alert, awake, grossly no focal neurological deficits , +Hearing impairment Skin: normal color, warm, +Chest Echymosis Results & Data Results & Data ([facility]) Vital Signs (Past 12 Hours) Vital Signs Temp Pulse Resp BP BP Pulse Ox 09/10/20 15:20 36.5 C 85 16 119/90 93 09/10/20 15:00 37.2 C 92 H 19 132/56 L 90 09/10/20 11:13 36.7 C 83 19 127/71 91 09/10/20 07:59 36.8 C 78 18 101/69 98 09/10/20 04:44 36.9 C 88 16 112/77 95 Laboratory Results Short CBC 09/10/20 Range/Units 05:20 WBC 2.43 L (4.8-10.8) K/uL Hgb 10.6 L (12.0-16.0) g/dL Hct 33.6 L (37-47) % Plt Count 147 (130-400) K/uL BMP 09/10/20 05:20 Sodium 141 Potassium 3.3 L Chloride 106 Carbon Dioxide 25 BUN 28 H Creatinine 1.05 Glucose 135 H Calcium 9.3 (1) Closed fracture of distal clavicle Encounter type: initial encounter Fracture alignment: nondisplaced Laterality: right Qualified Code(s): S42.034A - Nondisplaced fracture of lateral end of right clavicle, initial encounter for closed fracture (2) UTI (urinary tract infection) Hematuria presence: without hematuria Urinary tract infection type: acute cystitis Qualified Code(s): N30.00 - Acute cystitis without hematuria (3) Neutropenia Neutropenia type: unspecified Qualified Code(s): D70.9 - Neutropenia, unspecified (4) HTN (hypertension) Hypertension type: essential hypertension Qualified Code(s): I10 - Essential (primary) hypertension
[2020-09-10] MEDS: ROSUVASTATIN CALCIUM 10 MG TAB PO SCH (20:23)
[2020-09-10] MEDS: CHOLECALCIFEROL 1,000 UNITS 25 MCG TAB PO SCH (20:23)
[2020-09-10] MEDS: LOSARTAN POTASSIUM 50 MG TAB PO SCH (20:25)
[2020-09-10] MEDS: SENNA 8.6 MG TAB PO SCH (20:25)
[2020-09-11] MEDS: HEPARIN SODIUM/DEXTROSE 25,000 UNITS/500 ML BAG IV SCH (03:22)
[2020-09-11] MEDS: LEVOTHYROXINE SODIUM 88 MCG TABLET PO SCH (06:00)
[2020-09-11 06:21] LABS: Hematocrit (blood only) 33.1 % (37-47); Hemoglobin 10.3 g/dL (12.0-16.0); Mean Corpuscular Hemoglobin 25.1 pg (25-34); Mean Corpuscular Hgb Conc 31.1 g/dL (32-36); Mean Corpuscular Volume 80.5 fL (80-100); Mean Platelet Volume 10.3 fL (7.4-10.4); Platelet Count 146 K/uL (130-400); RDW Coefficient of Variation 19.3 % (11.5-14.5); RDW Standard Deviation 56.9 fL (36.4-46.3); Red Blood Count 4.11 M/uL (4.2-5.4); White Blood Count 1.82 K/uL (4.8-10.8)
[2020-09-11 06:37] LABS: Partial Thromboplastin Ratio 4.3
[2020-09-11 06:41] LABS: Partial Thromboplastin Time 112.2 Seconds (21.0-31.0)
[2020-09-11 06:42] LABS: Eosinophils # (auto) 0.08 K/uL (0-0.5); Eosinophils % (auto) 4.4 %; Giant Platelets 2+; Immature Granulocytes # (auto) 0.01 K/uL (0.00-0.02); Immature Granulocytes % (auto) 0.5 %; Lymphocytes # (auto) 0.48 K/uL (1.2-3.4); Lymphocytes % (auto) 26.4 %; Monocytes # (auto) 0.42 K/uL (0.11-0.59); Monocytes % (auto) 23.1 %; Neutrophils # (auto) 0.83 K/uL (1.4-6.5); Neutrophils % (auto) 45.6 %; Ovalocytes 1+
[2020-09-11 06:52] LABS: Calcium 9.5 mg/dl (8.5-10.1); Creatinine Clr Calc Pharmacy 35.8 ml/min; Est GFR (African American) 63.3 ml/min; Est GFR (Non-African American) 54.6 ml/min; Potassium 4.2 mmol/L (3.5-5.1)
[2020-09-11] MEDS: ASPIRIN 81 MG ECTAB PO SCH (10:08)
[2020-09-11] MEDS: DOCUSATE SODIUM 100 MG CAP PO SCH ×2 (10:08→21:43)
[2020-09-11] MEDS: GABAPENTIN 100 MG CAP PO SCH ×4 (10:09→21:41)
[2020-09-11] MEDS: DOXYCYCLINE HYCLATE 100 MG CAP PO SCH ×2 (10:09→21:40)
[2020-09-11] MEDS: SPIRONOLACTONE 12.5 MG TAB PO SCH (10:10)
[2020-09-11] MEDS: METOPROLOL TARTRATE 25 MG TAB PO SCH (10:10)
[2020-09-11] MEDS: FUROSEMIDE 40 MG TAB PO SCH (10:10)
--- NOTE | 2020-09-11 10:41 | Cardiology Progress Note ---
Date of Service September 11, 2020 Assessment & Plan (1) Atrial fibrillation with rapid ventricular response: (2) Acute decompensated heart failure: (3) Aortic stenosis: (4) Thoracic aortic aneurysm: Presentation with acute decompensated systolic heart failure. EF 35-40%. IV furosemide discontinued on 09/09/2020. Volume status at present: Mildly hypovolemic. Decrease oral furosemide at 20 mg/day. Continue spironolactone at 12.5 mg/day. Atrial fibrillation. Severe left atrial enlargement. Recommend rate control. Increase metoprolol (and change to succinate given reduced EF) to 37.5 mg twice a day for additional heart rate control. If hypotension observed following titration of metoprolol would reduce losartan dosing to 50 mg/day. Risks of mcc anticoagulation are greater than the benefit. Moderate to severe aortic valve stenosis. Continue appropriate medical management. Thoracic aortic aneurysm (TAA). Past mild enlargement, 4.1 cm, of proximal ascending aorta, CT scan, 2019. Recommend outpatient cardiology follow-up. Please call with any questions or concerns. Admission and Anticipated Discharge Date Admission Date: September 06, 2020 Supervising Physician Co-Signing Physician Notes Patient seen and examined with Diego Cooper PA-C. Agree with findings and assessment as above. States the cough is improved today. Denies any other cardiac complaints. No further cardiac testing or intervention necessary at this time. Subjective Patient seen and examined. Chart, medications, and telemetry reviewed. No cough. No chest congestion. No chest pain. Breathing is good. No tachypalpitations. Telemetry reviewed, demonstrating atrial fibrillation with PVCs versus aberrantly conducted beats, heart rates ranging from the 60's to 100 bpm. Review of Systems Review of Systems: All systems reviewed & are unremarkable except as noted in HPI & below Physical Exam Physical Exam: General: Alert. Oriented. No acute distress. Hard of hearing. HENT: Normocephalic. Atraumatic. Eyes: PER. Conjunctiva pink, sclera clear. Neck: Transmitted systolic murmur versus bilateral carotid bruits. Neck veins are flat. No HJR. Heart: Irregularly irregular in the 90's. Grade II/ systolic murmur. No diastolic murmur. No rub. No gallop. PMI is nondisplaced. Lungs: Decreased at the bases. Clear. Abdomen: +BS. Soft. Nontender. No masses or organomegaly. Extremities: No clubbing, cyanosis, or edema. Limited neurological examination is without focal deficits. Pulses: radial=2/4, posterior tibial=1/4. Results & Data ([facility]) Vital Signs (Past 12 Hours) Vital Signs Temp Pulse Pulse Resp BP Pulse Ox 09/11/20 08:59 79 09/11/20 08:02 36.5 C 78 18 117/82 97 09/11/20 05:11 36.5 C 81 18 98/65 L 97 09/11/20 00:05 86 Laboratory Results Laboratory Results - last 24 hr 09/11/20 09/11/20 09/11/20 05:31 05:31 05:31 WBC 1.82 L RBC 4.11 L Hgb 10.3 L Hct 33.1 L MCV 80.5 MCH 25.1 MCHC 31.1 L RDW Std Deviation 56.9 H RDW Coeff of Josue 19.3 H Plt Count 146 MPV 10.3 Immature Gran % (Auto) 0.5 Neut % (Auto) 45.6 Lymph % (Auto) 26.4 O'Brien % (Auto) 23.1 Eos % (Auto) 4.4 Baso % (Auto) 0.0 Neut # (Auto) 0.83 L* Lymph # (Auto) 0.48 L O'Brien # (Auto) 0.42 Eos # (Auto) 0.08 Baso # (Auto) 0.00 Immature Gran # (Auto) 0.01 Giant Platelets 2+ Ovalocytes 1+ APTT 112.2 H* PTT Ratio 4.3 Sodium 139 Potassium 4.2 D Chloride 107 Carbon Dioxide 27 Anion Gap 5.0 BUN 37 H Creatinine 0.95 Est Cr Clr Drug Dosing 35.8 Est GFR ( Amer) 63.3 Est GFR (Non-Af Amer) 54.6 BUN/Creatinine Ratio 39.0 H Glucose 117 H Calcium 9.5 Magnesium 2.0
--- NOTE | 2020-09-11 10:53 | Hospitalist Progress Note ---
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 Acute on chronic systolic heart failure CXR:Cardiomegaly with vascular congestion and reticular opacities suggestive of pulmonary edema. Small pleural effusions. Asymmetric left lung base opacities suggestive of atelectasis versus pneumonia. ECHO: Mild concentric LVH, moderate global hypokinesis of left ventricle, EF 35 to 40%, left atrium is severely dilated, mild pulmonary hypertension is present. 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 BNP:7384 IV Lasix discontinued Monitor I's and O's, daily weight Appreciate cardiology input Furosemide 40 mg daily Spironolactone 12.5 mg daily Continue current medication Monitor volume status (2) Atrial fibrillation with RVR: A fib with RVR Continue metoprolol Currently on IV heparin High risk for falls, elderly--High risk for long-term anticoagulation (3) Multiple falls: (4) Ambulatory dysfunction: (5) Closed fracture of distal clavicle: Multiple falls Ambulatory dysfunction H/O hemiparesis from former CVA CT head without acute intracranial abnormality Shoulder XR with nondisplaced fracture of the distal right clavicle Appreciate Orthopedics Input Conservative Management Needs follow-up with Dr. Rivas 2 to 3 weeks upon discharge PT/OT Constipation Continue Bowel regimen KUB: Nonobstructive bowel gas pattern. +BM ROS-No Headache, No Visual Changes, No Nausea, No Vomiting, No Fever, No Chills, No Neck Pain or Stiffness, No Chest Pain, No Palpitations, No SOB, No MCKEON, No Cough, No Sputum, No Wheezing, No Abdominal Pain, No Diarrhea, No Hematemesis, No Hemoptysis, No Unexpected Weight Loss, No Flank pain, No Melena, No Hematochezia, No Frequency, No Urgency, No Burning, No Hematuria, No Rashes, No Diaphoresis. Appetite is Normal Physical Exam Gen-AAO x 3, NAD, Afebrile Head-NCAT, EOMI, PERRLA, Anicteric Sclera, No Posterior Pharyngeal Erythema Neck-Supple, No JVD, No Thyromegaly, No Masses, No LAD, No Bruits Lungs-Clear to Auscultation Bilaterally, No Rales, No Rhonchi, No Wheezing, No Crepitus Chest-No S4, +S1, +S2, No S3, No Murmurs, No Rubs, No Gallops, No Ectopy Abdomen-Soft, Bowel Sounds Present, Non Tender, Non Distended, No Hepatomegaly, No Splenomegaly, No Palpable Masses, No Rebound, No Rigidity, No Guarding Musculoskeletal-Full Range of Motion Bilaterally, No CVAT Extremities-No Cyanosis, No Clubbing, No Edema Nuero-Cranial Nerves II-XII grossly intact, Motor WNL, DTRs WNL, Strength WNL, Non Focal Psych-Normal Mood (6) UTI (urinary tract infection): Abnormal UA UTI ruled out Urine Cx: Skin kishore Denies dysuria Empirically received Rocephin (7) Neutropenia: H/O Chronic leukopenia since 2018. Followed with Dr. Yang at [facility] Bone marrow biopsy was recommended but patient declined ANC: 450 Neutropenic precautions (8) History of CVA (cerebrovascular accident): (9) Left hemiparesis: History of CVA in 2015 with left hemiparesis Continue aspirin Hold plavix while on IV heparin Continue statin (10) HTN (hypertension): Continue losartan (11) Hypothyroidism: Continue levothyroxine Possible bronchitis CXR as above Negative procalcitonin Continue doxycycline Day #4 DVT Px: IV heparin Code status: FULL CODE Disposition PT OT: May need SNF placement Plan to discharge to rehab facility when accepted Admission and Anticipated Discharge Date Admission Date: September 06, 2020 Results & Data Results & Data ([facility]) Vital Signs (Past 12 Hours) Vital Signs Temp Pulse Pulse Resp BP Pulse Ox 09/11/20 08:59 79 09/11/20 08:02 36.5 C 78 18 117/82 97 09/11/20 05:11 36.5 C 81 18 98/65 L 97 09/11/20 00:05 86 (1) Closed fracture of distal clavicle Encounter type: initial encounter Fracture alignment: nondisplaced Laterality: right Qualified Code(s): S42.034A - Nondisplaced fracture of lateral end of right clavicle, initial encounter for closed fracture (2) UTI (urinary tract infection) Hematuria presence: without hematuria Urinary tract infection type: acute cystitis Qualified Code(s): N30.00 - Acute cystitis without hematuria (3) Neutropenia Neutropenia type: unspecified Qualified Code(s): D70.9 - Neutropenia, unspecified (4) HTN (hypertension) Hypertension type: essential hypertension Qualified Code(s): I10 - Essential (primary) hypertension
[2020-09-11 14:22] LABS: Partial Thromboplastin Ratio 1.1; Partial Thromboplastin Time 29.4 Seconds (21.0-31.0)
[2020-09-11] MEDS: ROSUVASTATIN CALCIUM 10 MG TAB PO SCH (21:40)
[2020-09-11] MEDS: SENNA 8.6 MG TAB PO SCH (21:40)
[2020-09-11] MEDS: CHOLECALCIFEROL 1,000 UNITS 25 MCG TAB PO SCH (21:40)
[2020-09-11] MEDS: LOSARTAN POTASSIUM 50 MG TAB PO SCH (21:41)
[2020-09-11] MEDS: METOPROLOL SUCC 25MG EXT REL TAB PO SCH (21:41)
[2020-09-12] MEDS: LEVOTHYROXINE SODIUM 88 MCG TABLET PO SCH (05:55)
[2020-09-12 07:29] LABS: Hematocrit (blood only) 31.8 % (37-47); Mean Corpuscular Hemoglobin 25.3 pg (25-34); Mean Corpuscular Hgb Conc 31.4 g/dL (32-36); Mean Corpuscular Volume 80.5 fL (80-100); Mean Platelet Volume 10.1 fL (7.4-10.4); Platelet Count 143 K/uL (130-400); RDW Coefficient of Variation 19.3 % (11.5-14.5); RDW Standard Deviation 56.3 fL (36.4-46.3); Red Blood Count 3.95 M/uL (4.2-5.4); White Blood Count 1.51 K/uL (4.8-10.8)
[2020-09-12 07:38] LABS: INR 1.1 (0.9-1.1)
[2020-09-12 08:01] LABS: BUN Creatinine Ratio 47.6 (10-20); Calcium 9.6 mg/dl (8.5-10.1); Creatinine Clr Calc Pharmacy 35.1 ml/min; Est GFR (African American) 61.7 ml/min; Est GFR (Non-African American) 53.3 ml/min; Potassium 3.8 mmol/L (3.5-5.1)
[2020-09-12] MEDS: SPIRONOLACTONE 12.5 MG TAB PO SCH (08:27)
[2020-09-12] MEDS: METOPROLOL SUCC 25MG EXT REL TAB PO SCH (08:27)
[2020-09-12] MEDS: ASPIRIN 81 MG ECTAB PO SCH (08:28)
[2020-09-12] MEDS: GABAPENTIN 100 MG CAP PO SCH (08:28)
[2020-09-12] MEDS: DOXYCYCLINE HYCLATE 100 MG CAP PO SCH (08:29)
[2020-09-12] MEDS: DOCUSATE SODIUM 100 MG CAP PO SCH (08:34)
[2020-09-12] MEDS ORDERED: FUROSEMIDE 20 MG TAB PO SCH (09:00)
--- NOTE | 2020-09-12 09:28 | Discharge Summary ---
Date of Service September 12, 2020 Admission HPI Per Admitting Provider This is an 85yo F with a PMH of CVA in 2015 with left hemiparesis on aspirin and Plavix, chronic leukopenia since 2018, dyslipidemia, asthma and other medical problems listed below who presents from home after multiple falls today. Has history of some ambulatory dysfunction due to left hemiparesis from former stroke and ambulates with walker. Requires assistance from for ADLs such as dressing and showering. Has reportedly fallen 4 times this week and was unable to fully catch her on fall this morning so was brought in for further evaluation. Was found to have a nondisplaced fracture of the distal right clavicle and also noted to have atrial fibrillation. No documented atrial fibrillation in the past per chart review. Denies any lightheadedness, visual changes, chest pain, palpitations or SOB. Has a cough but is unable to bring up sputum. Also with history of chronic leukopenia since 2018. Has undergone workup by Dr. Yang at [facility] for the evaluation of leukopenia. Bone marrow biopsy was recommended but she declined. In ED, noted to have A fib with RVR at 108 bpm. Afebrile. Leukopenic at 1.43 (chronic) with ANC 0.60, hemoglobin 11.5 (baseline). CXR with cardiomegaly with vascular congestion and reticular opacities suggestive of pulmonary edema. proBNP pending. Potassium 3.4. Magnesium and TSH within normal limits. Covid screen PCR negative. Urinalysis abnormal. Started on Rocephin for empiric treatment of UTI. Given IV Lopressor 5mg x 1. Admission Exam Per Admitting Provider General Appearance: vitals as above, NAD, elderly, frail female, pleasant, conversing easily Head: normocephalic, atraumatic Eyes: normal inspection, PERRL, conjunctivae normal, anicteric sclerae ENT: hard of hearing, external ear and nose normal, oropharynx normal Neck: normal visual inspection, trachea midline, no thyromegaly Respiratory: normal respiratory effort, bibasilar rales, L>R, no wheeze or rhonchi. No accessory muscle use Cardiovascular: irregular rate & rhythm, + systolic murmur, normal peripheral pulses, 1+ BLE edema. Vessels: no JVD Chest: normal inspection of chest Abdomen/GI: normal bowel sounds, soft, nontender, no hepatosplenomegaly Extremities/Musculoskeletal: + TTP of distal R clavicle. No deformity noted. Reduced ROM 2/2 pain. No cyanosis or clubbing, extremities motor strength 5/5 Neurologic: PERRL, EOMI, accommodation nl, no face palsy, no dysarthria, CN's II-XI intact bilaterally and moves all extremities Psychiatric: A+Ox3, euthymic affect Skin: no rashes, normal color, warm/dry, bruising noted on bilateral forearms Principal Diagnosis Acute decompensated heart failure: Acute on chronic systolic heart failure Atrial fibrillation with RVR: Multiple falls: Ambulatory dysfunction HLD HTN Hypothyroid Clavicle Fracture Old CVA c L Stan Osteoporosis Discharge Exam ROS-No Headache, No Visual Changes, No Nausea, No Vomiting, No Fever, No Chills, No Neck Pain or Stiffness, No Chest Pain, No Palpitations, No SOB, No MCKEON, No Cough, No Sputum, No Wheezing, No Abdominal Pain, No Diarrhea, No Hematemesis, No Hemoptysis, No Unexpected Weight Loss, No Flank pain, No Melena, No Hematochezia, No Frequency, No Urgency, No Burning, No Hematuria, No Rashes, No Diaphoresis. Appetite is Normal Physical Exam Gen-AAO x 3, NAD, Afebrile Head-NCAT, EOMI, PERRLA, Anicteric Sclera, No Posterior Pharyngeal Erythema Neck-Supple, No JVD, No Thyromegaly, No Masses, No LAD, No Bruits Lungs-Clear to Auscultation Bilaterally, No Rales, No Rhonchi, No Wheezing, No Crepitus Chest-Irreg/Irreg, No S4, +S1, +S2, No S3, +Aortic Murmur, No Rubs, No Gallops, +Ectopy Abdomen-Soft, Bowel Sounds Present, Non Tender, Non Distended, No Hepatomegaly, No Splenomegaly, No Palpable Masses, No Rebound, No Rigidity, No Guarding Musculoskeletal-Full Range of Motion Bilaterally, No CVAT Extremities-No Cyanosis, No Clubbing, No Edema Nuero-Cranial Nerves II-XII grossly intact, Motor WNL, DTRs WNL, Strength WNL, Non Focal Psych-Normal Mood Discharge Data Allergies Allergy/AdvReac Type Severity Reaction Status Date / Time LINH Inhibitors Allergy Unknown UNK Verified 09/06/20 15:30 aminophylline Allergy Unknown Unknown Verified 09/06/20 15:31 amoxicillin Allergy Unknown SWELLING Verified 11/12/19 07:42 OF HANDS Penicillins Allergy Unknown Unknown Verified 09/06/20 14:39 Consultations 09/06/20 14:56 ED Decision to Admit Stat 09/06/20 17:15 Consult Cardiology Routine 09/06/20 17:28 Consult Orthopedic Surgery Routine Ordered Studies 09/06/20 12:55 CT head/brain wo con Stat Current Diagnoses Neutropenia, unspecified (09/06/20) Hypothyroidism, unspecified (09/06/20) Hemiplegia, unspecified affecting left nondominant side (09/06/20) Essential (primary) hypertension (09/06/20) Nonrheumatic aortic (valve) stenosis (09/06/20) Paroxysmal atrial fibrillation (09/06/20) Unspecified atrial fibrillation (09/06/20) Heart failure, unspecified (09/06/20) Thoracic aortic aneurysm, without rupture (09/06/20) Acute cystitis without hematuria (09/06/20) Urinary tract infection, site not specified (09/06/20) Cardiac murmur, unspecified (09/06/20) Difficulty in walking, not elsewhere classified (09/06/20) Repeated falls (09/06/20) Displaced fracture of lateral end of unspecified clavicle, initial encounter for closed fracture (09/06/20) Nondisplaced fracture of lateral end of right clavicle, initial encounter for closed fracture (09/06/20) Personal history of transient ischemic attack (TIA), and cerebral infarction without residual deficits (09/06/20) Allergies LINH Inhibitors Allergy (Unknown, Verified 09/06/20 15:30) UNK aminophylline Allergy (Unknown, Verified 09/06/20 15:31) Unknown amoxicillin Allergy (Unknown, Verified 11/12/19 07:42) SWELLING OF HANDS Penicillins Allergy (Unknown, Verified 09/06/20 14:39) Unknown Height/Weight/Isolation Height 5 ft 3 in Weight 59.8 kg Isolation Type Neutropenic Precautions Chemistry 09/11/20 09/12/20 05:31 07:02 Sodium 139 139 Potassium 4.2 D 3.8 Chloride 107 108 H Carbon Dioxide 27 28 Anion Gap 5.0 3.0 BUN 37 H 46 H Creatinine 0.95 0.97 Glucose 117 H 104 H Hospital Course (1) Acute decompensated heart failure: 85 yo female with 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 Acute on chronic systolic heart failure CXR:Cardiomegaly with vascular congestion and reticular opacities suggestive of pulmonary edema. Small pleural effusions. Asymmetric left lung base opacities suggestive of atelectasis versus pneumonia. ECHO: Mild concentric LVH, moderate global hypokinesis of left ventricle, EF 35 to 40%, left atrium is severely dilated, mild pulmonary hypertension is present. 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 BNP:7384 DC to SNF today [facility] Lasix 20 QAM Metoprolol Succ 37.5 BID Losartan 50 Spironolactone 12.5 mg daily (2) Atrial fibrillation with RVR: A fib with RVR Continue metoprolol High risk for falls, elderly--High risk for long-term anticoagulation (3) Multiple falls: (4) Ambulatory dysfunction: (5) Closed fracture of distal clavicle: Multiple falls Ambulatory dysfunction H/O hemiparesis from former CVA CT head without acute intracranial abnormality Shoulder XR with nondisplaced fracture of the distal right clavicle Appreciate Orthopedics Input Conservative Management Needs follow-up with Dr. Rivas 2 to 3 weeks upon discharge PT/OT Constipation Continue Bowel regimen KUB: Nonobstructive bowel gas pattern. +BM (6) UTI (urinary tract infection): Abnormal UA UTI ruled out Urine Cx: Skin kishore Denies dysuria Empirically received Rocephin (7) Neutropenia: H/O Chronic leukopenia since 2018. Followed with Dr. Yang at [facility] Bone marrow biopsy was recommended but patient declined ANC: 450 Neutropenic precautions (8) History of CVA (cerebrovascular accident): (9) Left hemiparesis: History of CVA in 2015 with left hemiparesis Continue aspirin Plavix on DC Continue statin (10) HTN (hypertension): Continue losartan (11) Hypothyroidism: Continue levothyroxine Possible bronchitis CXR as above Negative procalcitonin Continue doxycycline Code status: FULL CODE Disposition SNF placement Total Time Total Time Spent Total Time Spent (In Minutes): 45 mins Total Time Includes: Examination of the Patient, Discharge Planning, Medication Reconciliation and Communication With Other Providers Discharge Plan Discharge Items Patient Disposition: Transfer [facility] Fac Reason For Visit: A FIB W RVR, AMBULATORY DYSFUNCTION, UTI Discharge Diagnosis: Acute decompensated heart failure: Acute on chronic systolic heart failure Atrial fibrillation with RVR: Multiple falls: Ambulatory dysfunction HLD HTN Hypothyroid Clavicle Fracture Old CVA c L Stan Osteoporosis Condition on Discharge: [facility] Concerns: Clavicle fracture, Falls Activity: Per Instructions section Activity Comment: RUE NWB, No ABD>90 degrees Lifting: None Bathing: No limitations Exercise/Sports: None Weightbearing: Full weightbearing Weightbearing Comment: As above Non-emergency contact: Primary Care Provider Call non-emergency contact if: you have any medication questions Follow-up/Referrals: Bulmaro Forbes [Primary Care Provider] - Diet: Heart Healthy Fluids: 1500ml (6 cups) Addtl Attending Provider Instructions: None Pending Studies at Discharge: No Stand-Alone Forms: [employer] WHOOP Skilled Items Patient informed of condition?: Yes DNR: No Discharge Level of Care: Skilled Communicable Disease: No Discharge Prognosis: Improving Lines: None Urinary Catheter: No Medications and DC Order Prescriptions: New doxycycline hyclate 100 mg Capsule 100 mg PO BID Qty: 14 RF: 0 metoprolol succinate 25 mg Tablet Extended Release 24 Hr 37.5 mg PO BID Qty: 60 RF: 0 spironolactone 25 mg Tablet 12.5 mg PO DAILY Qty: 30 RF: 0 acetaminophen 325 mg Tablet 650 mg PO Q4H PRN (Reason: fever or pain) Qty: 90 RF: 0 furosemide 20 mg Tablet 20 mg PO QAM Qty: 30 RF: 0 polyethylene glycol 3350 [Miralax] 17 gram Powder In Packet 17 g PO DAILY PRN (Reason: constipation) Qty: 30 RF: 0 sennosides [Senokot] 8.6 mg Tablet 8.6 mg PO HS Qty: 30 RF: 0 losartan 25 mg tablet 25 mg PO DAILY Qty: 30 RF: 0 Continued clopidogrel 75 mg tablet 75 mg PO QAM RF: 0 aspirin 81 mg Tablet,Delayed Release (Dr/Ec) 81 mg PO QAM RF: 0 levothyroxine 88 mcg tablet 88 mcg PO 6XWK RF: 0 gabapentin 100 mg capsule 100 mg PO QID RF: 0 rosuvastatin 10 mg tablet 10 mg PO HS RF: 0 cholecalciferol (vitamin D3) [Vitamin D3] 25 mcg (1,000 unit) Tablet 25 mcg PO HS RF: 0 Discontinued losartan 100 mg tablet 100 mg PO HS RF: 0 Discharge Orders: Discharge Order (Routine); Ordered 09/12/20 Ordered By: Daryl Pathak Admission Data Admit Date/Time: 09/06/20 15:11 Attending Provider: Daryl Pathak Admit Provider: Kira Marcos Primary Care Provider: Bulmaro Forbes Other Providers: Es Linda ; Kira Marcos ; Dewey Benoit ; Reece Rivas
--- NOTE | 2020-09-12 10:05 | Cardiology Progress Note ---
Date of Service September 12, 2020 Assessment & Plan (1) Atrial fibrillation with rapid ventricular response: (2) Acute decompensated heart failure: (3) Aortic stenosis: (4) Thoracic aortic aneurysm: Systolic heart failure. EF 35-40%. IV furosemide discontinued on 09/09/2020. Volume status at present: Hypovolemic. Decrease furosemide to 20 mg by mouth on s, , and . Decrease spironolactone to 12.5 mg by mouth on , , and Atrial fibrillation. Severe left atrial enlargement. Recommend rate control. Rates well controlled via telemetry. Continue metoprolol succinate at 37.5 mg twice a day. Risks of half-way anticoagulation are greater than the benefit. Moderate to severe aortic valve stenosis. Continue appropriate medical management. Thoracic aortic aneurysm (TAA). Past mild enlargement, 4.1 cm, of proximal ascending aorta, CT scan, 2019. Recommend outpatient cardiology follow-up. Please call with any questions or concerns. Admission and Anticipated Discharge Date Admission Date: September 06, 2020 Subjective Patient seen and examined. Chart, medications, and telemetry reviewed. No complaints or concerns.No chest pain, palpitations, or worsening shortness of breath Telemetry: Atrial fibrillation in the 60s to 80s, with an occasional PVC or aberrantly conducted beat Review of Systems Review of Systems: All systems reviewed & are unremarkable except as noted in HPI & below Physical Exam Physical Exam: General: Alert. Oriented. No acute distress. Hard of hearing. HENT: Normocephalic. Atraumatic. Eyes: PER. Conjunctiva pink, sclera clear. Neck: Transmitted systolic murmur versus bilateral carotid bruits. Neck veins are flat. No HJR. Heart: Irregularly irregular in the 70's. Grade II/ systolic murmur. No di astolic murmur. No rub. No gallop. PMI is nondisplaced. Lungs: Decreased at the bases. Clear. Abdomen: +BS. Soft. Nontender. No masses or organomegaly. Extremities: No clubbing, cyanosis, or edema. Limited neurological examination is without focal deficits. Pulses: radial=2/4, posterior tibial=1/4. Results & Data ([facility]) Vital Signs (Past 12 Hours) Vital Signs Temp Pulse Pulse Pulse Resp BP Pulse Ox 09/12/20 08:26 71 105/74 09/12/20 07:28 36.5 C 71 102/66 94 09/12/20 03:02 36.8 C 76 19 91/62 L 97 09/11/20 23:25 84 09/11/20 23:16 36.6 C 75 17 108/73 96 Laboratory Results Laboratory Results - last 24 hr 09/11/20 09/11/20 09/11/20 13:52 20:35 20:35 WBC RBC Hgb Hct MCV MCH MCHC RDW Std Deviation RDW Coeff of Josue Plt Count MPV PT INR APTT 29.4 PTT Ratio 1.1 Sodium Potassium Chloride Carbon Dioxide Anion Gap BUN Creatinine Est Cr Clr Drug Dosing Est GFR ( Amer) Est GFR (Non-Af Amer) BUN/Creatinine Ratio Glucose Calcium COVID-19 Eval Order Covid19 at [facility] SARS-CoV-2 (PCR) NEGATIVE 09/12/20 09/12/20 09/12/20 07:02 07:02 07:02 WBC 1.51 L RBC 3.95 L Hgb 10.0 L Hct 31.8 L MCV 80.5 MCH 25.3 MCHC 31.4 L RDW Std Deviation 56.3 H RDW Coeff of Josue 19.3 H Plt Count 143 MPV 10.1 PT 11.0 INR 1.1 APTT PTT Ratio Sodium 139 Potassium 3.8 Chloride 108 H Carbon Dioxide 28 Anion Gap 3.0 BUN 46 H Creatinine 0.97 Est Cr Clr Drug Dosing 35.1 Est GFR ( Amer) 61.7 Est GFR (Non-Af Amer) 53.3 BUN/Creatinine Ratio 47.6 H Glucose 104 H Calcium 9.6 COVID-19 Eval Order SARS-CoV-2 (PCR)
[2020-09-13] MEDS ORDERED: FUROSEMIDE 20 MG TAB PO SCH ×2 (09:00→10:15)
[2020-09-13] MEDS ORDERED: SPIRONOLACTONE 12.5 MG TAB PO SCH (09:00)
== END 2020-09-12 11:58 | DRG 308 ==
LOC: ED 11:30 → SUATTDRO 15:11 → 2E 15:11 → 2W 09-10 15:37

== ENCOUNTER 2021-01-20 00:23 | Inpatient (IN) ==
[2021-01-20] MEDS ORDERED: ACETAMINOPHEN 1,000 MG/100 ML VIAL IV STA (00:50)
[2021-01-20] MEDS ORDERED: SODIUM CHLORIDE 0.9% 1000ML 1,000 ML IV STA (00:50)
--- NOTE | 2021-01-20 00:50 | Emergency Department Note ---
Impression & Plan Acute hypoxemic respiratory failure, Atrial fibrillation with RVR, Pneumonia due to 2019 novel coronavirus, Acute hypokalemia ED Provider Note CHIEF COMPLAINT: Shortness of breath, Covid positive HISTORY OF PRESENT ILLNESS: This 85-year-old female patient presents to the emergency department from the long-term with complaints of increasing shortness of breath and low-grade fever per long-term staff. Patient was noted to be Covid positive by outpatient testing. She was mildly hypoxic prior to arrival at 88%. She does have a history of congestive heart failure and atrial fibrillation but is not on anticoagulation. Patient is hard of hearing and thus history is limited. She denies any chest pain, vomiting or diarrhea at this time. REVIEW OF SYSTEMS: A review of systems was performed with positives and pertinent negatives listed in the history of present illness. 10 systems were reviewed and are otherwise negative. ALLERGIES: see below MEDICATIONS: see below PMH: see below SOCIAL HISTORY: see below DDx: Reactive airway disease, pneumonia, pneumothorax, COPD, CHF, infections, cardiac ischemia, pulmonary embolism, musculoskeletal, gastrointestinal, as well as other pathologies. PHYSICAL EXAM: Vital signs reviewed. General: Elderly, chronically ill-appearing 85-year-old female, in no significant distress. HEENT: No scleral icterus, PERRLA, neck supple. Atraumatic. Cardiovascular: Tachycardic and irregular, systolic ejection murmur Pulmonary: Coarse breath sounds to auscultation bilaterally, slightly increased work of breathing on nasal cannula oxygen. Abdomen: Soft, nontender, nondistended, positive bowel sounds. Musculoskeletal: Atraumatic, no peripheral edema. Neurologic: Patient awake alert and pleasantly confused, hard of hearing, CN intact. Skin: Warm, dry, no rash EMERGENCY DEPARTMENT COURSE/MDM: This patient was evaluated and appeared to be in no significant distress. Patient was resting comfortably on nasal cannula supplementation. Chest x-ray was performed and reveals patchy bilateral airspace opacities. She is known to be Covid positive and this would be consistent. She is noted to be in rapid atrial fibrillation on cardiac monitoring. She was given IV hydration, IV potassium, IV Cardizem and IV Tylenol. We were able to achieve better rate control. Case was discussed with the hospitalist service for admission and further management. MONITORING: An order for cardiac monitoring was placed and the patient is noted to be in a rapid atrial fibrillation at 115 beats per minute. RADIOLOGY: XR chest 1V portable HISTORY: Fever COMPARISON: Chest 09/06/2020. FINDINGS: No pneumothorax. Small bilateral pleural effusions, unchanged. The heart remains enlarged. There is diffuse interstitial thickening with patchy bilateral airspace opacities. This has progressed in the interval. IMPRESSION: 1. Diffuse interstitial thickening with patchy bilateral airspace opacities. This could represent progressive pulmonary edema or a superimposed pneumonia. 2. Cardiomegaly and small bilateral pleural effusions are again noted. ACT 112: Negative or not required by law. Electronically signed by: Rogerio Mcgee M.D. 01/20/2021 8:37 AM Dictated: 01/20/21835Transcribed: 01/20/21835 EKG: Atrial fibrillation with RVR at 134 bpm. Left axis deviation, prolonged QT interval at 495. LVH, nonspecific ST changes. I have personally spent 35 minutes of critical care time in the direct management of this patient. This was a life threatening event. This 35 minutes is in excess of all separately billable procedures. DISPOSITION:hospitalist for eval Past Med/Surg History Medical History History of CVA (cerebrovascular accident) HLD (hyperlipidemia) HTN (hypertension) Hypothyroidism Left hemiparesis Surgical History History of appendectomy History of bilateral hip replacements History of cholecystectomy History of loop electrical excision procedure (LEEP) History of nasal polypectomy Hx of total knee arthroplasty Family History Other Hypertension Stroke Denies family history of Ovarian cancer Breast cancer Social History Smoking Status: Never smoker Hx Alcohol Use: No Hx Substance Use: No Preferred Language: Faroese Communication Ability: Effective [employer] 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 Supervisor Required: No Beliefs That Will Affect Care: None marital status: Current Living Situation: Rehab Other Information That Helps Us Care for You: No Feels Safe at Home: Yes Safety Concerns: Feels Safe At This Time Assistive Devices: None Allergies Allergies Allergy/AdvReac Type Severity Reaction Status Date / Time amoxicillin Allergy Intermediate SWELLING Verified 01/21/21 14:02 OF HANDS- ON [facility] MED LIST Penicillins Allergy Intermediate ON [facility] Verified 01/21/21 14:02 [facility] Inhibitors Allergy Unknown cough Verified 01/23/21 14:22 aminophylline Allergy Unknown ON [facility] Verified 01/20/21 01:16 [facility] LIST Home Meds Home Medications Medication Instructions Recorded Confirmed clopidogrel 75 mg tablet 75 mg PO QAM tab 11/21/18 01/20/21 cholecalciferol (vitamin D3) 25 25 mcg PO HS 11/12/19 01/20/21 mcg (1,000 unit) tablet (Vitamin D3) levothyroxine 88 mcg tablet 88 mcg PO [id number] 11/12/19 01/20/21 rosuvastatin 10 mg tablet 10 mg PO HS 11/12/19 01/20/21 ascorbic acid (vitamin C) 500 mg 500 mg PO DAILY 01/20/21 01/20/21 tablet (Vitamin C) dextromethorphan-guaifenesin 10 15 ml PO Q4H PRN 01/20/21 01/20/21 mg-200 mg/5 mL oral liquid ferrous sulfate 325 mg (65 mg 325 mg PO QPM 01/20/21 01/20/21 iron) tablet,delayed release food supplemt, lactose-reduced 240 ea PO HS 01/20/21 01/20/21 food supplemt, lactose-reduced 240 ea PO QAM 01/20/21 01/20/21 ipratropium 0.5 mg-albuterol 3 mg 3 ml INHALATION Q8H 01/20/21 01/20/21 (2.5 mg base)/3 mL nebulization soln lanolin alcohols-mineral 1 applic TOPICAL AMPM 01/20/21 01/20/21 oil-w.petrolatum-ceresin topical cream (Minerin Creme) melatonin 5 mg tablet 5 mg PO HS 01/20/21 01/20/21 menthol 0.44 %-zinc oxide 20.6 % 1 applic TOPICAL BID 01/20/21 01/20/21 topical ointment (Calmoseptine) metoprolol succinate 25 mg 25 mg PO BID 01/20/21 01/20/21 tablet,extended release 24 hr sennosides 8.6 mg-docusate sodium 1 tab-cap PO BID 01/20/21 01/20/21 50 mg tablet (Senna Plus) spironolactone 25 mg tablet 25 mg PO DAILY 01/20/21 01/20/21 Previous Rx's Medication Instructions Recorded acetaminophen 325 mg tablet 650 mg PO Q4H PRN #90 tab MDD 3 09/12/20 GRAMS/24 HOURS furosemide 20 mg tablet 20 mg PO DAILY 30 Days #30 tab 01/23/21 losartan 25 mg tablet 25 mg PO DAILY #30 tab 01/23/21 Results & Data (ED) Vital Signs Vital Signs - 24 hr 01/20/21 00:41 01/20/21 04:14 01/20/21 04:17 Temperature 37.5 C Temperature Source Oral Pulse Rate 115 H Pulse Rate [Right Radial] 75 80 Pulse Rhythm Regular Pulse Rhythm [Right Radial] Regular Pulse Strength Normal Pulse Strength [Right Radial] Respiratory Rate 28 H 22 24 Respiratory Effort / Characteristics Labored Non-Labored Non-Labored Spontaneous Respiratory Depth Deep Shallow Respiratory Pattern Regular Blood Pressure 122/85 Blood Pressure [Right Arm] 98/63 L Blood Pressure Mean 97 Blood Pressure Mean [Right Arm] 74 Blood Pressure Position Lying Blood Pressure Position [Right Arm] Pulse Oximetry 97 98 99 Oxygen Delivery Method Nasal Cannula Nasal Cannula Nasal Cannula Oxygen Flow Rate 3 2 2 Sepsis Recent Fever Within 48 Hours Yes Sepsis New/Unexplained Change in Mental Status No Sepsis Action Taken by Nursing No Action Required 01/20/21 05:11 Temperature Temperature Source Pulse Rate Pulse Rate [Right Radial] 86 Pulse Rhythm Pulse Rhythm [Right Radial] Regular Pulse Strength Pulse Strength [Right Radial] Normal Respiratory Rate 19 Respiratory Effort / Characteristics Non-Labored Respiratory Depth Normal Respiratory Pattern Regular Blood Pressure Blood Pressure [Right Arm] 119/84 Blood Pressure Mean Blood Pressure Mean [Right Arm] 95 Blood Pressure Position Blood Pressure Position [Right Arm] Lying Pulse Oximetry 99 Oxygen Delivery Method Nasal Cannula Oxygen Flow Rate 2 Sepsis Recent Fever Within 48 Hours Sepsis New/Unexplained Change in Mental Status Sepsis Action Taken by Nursing Laboratory Data Attestation: I reviewed the patient's lab results. Result diagrams: 01/21/21 05:20 01/23/21 06:57 Lab Results 01/20/21 01/20/21 01/20/21 Range/Units 00:40 00:40 00:40 WBC 2.89 L (4.8-10.8) K/uL RBC 4.34 (4.2-5.4) M/uL Hgb 11.2 L (12.0-16.0) g/dL Hct 35.4 L (37-47) % MCV 81.6 (80-100) fL MCH 25.8 (25-34) pg MCHC 31.6 L (32-36) g/dL RDW Std Deviation 53.7 H (36.4-46.3) fL RDW Coeff of Josue 17.8 H (11.5-14.5) % Plt Count 149 (130-400) K/uL MPV 9.9 (7.4-10.4) fL Immature Gran % (Auto) 0.3 % Neut % (Auto) 69.7 % Lymph % (Auto) 19.0 % Rush % (Auto) 10.4 % Eos % (Auto) 0.3 % Baso % (Auto) 0.3 % Neut # (Auto) 2.01 (1.4-6.5) K/uL Lymph # (Auto) 0.55 L (1.2-3.4) K/uL Rush # (Auto) 0.30 (0.11-0.59) K/uL Eos # (Auto) 0.01 (0-0.5) K/uL Baso # (Auto) 0.01 (0-0.2) K/uL Immature Gran # (Auto) 0.01 (0.00-0.02) K/uL Polychromasia 1+ PT 11.4 (9.0-12.0) Seconds INR 1.1 (0.9-1.1) APTT 36.3 H (21.0-31.0) Seconds PTT Ratio 1.4 Sodium 132 L (136-145) mmol/L Potassium 2.9 L (3.5-5.1) mmol/L Chloride 105 (98-107) mmol/L Carbon Dioxide 23 (21-32) mmol/L Anion Gap 4.0 (3-11) BUN 18 (7-18) mg/dl Creatinine 0.68 (0.6-1.2) mg/dl Est Cr Clr Drug Dosing 52.2 ml/min Est GFR ( Amer) 92.4 ml/min Est GFR (Non-Af Amer) 79.8 ml/min BUN/Creatinine Ratio 26.0 H (10-20) Glucose 200 H (70-99) mg/dl Lactate (0.4-2.0) mmol/L Calcium 8.3 L (8.5-10.1) mg/dl Magnesium 1.6 L (1.8-2.4) mg/dl Total Bilirubin 0.5 (0.2-1) mg/dl AST 15 (15-37) U/L ALT 9 L (12-78) U/L Alkaline Phosphatase 93 (45-117) U/L Troponin I 0.258 H* (0-0.045) ng/ml NT-Pro-B Natriuret Pep 80402 H (0-1800) pg/ml Total Protein 5.5 L (6.4-8.2) gm/dl Albumin 2.6 L (3.4-5.0) gm/dl Globulin 2.9 (2.5-4.0) gm/dl Albumin/Globulin Ratio 0.9 (0.9-2) TSH 4.600 H (0.300-4.500) uIu/ml Free T4 1.51 (0.8-1.6) ng/dl Bld Cult Staph aureus PCR (Negative) Blood Culture MRSA PCR (Negative) 01/20/21 01/20/21 Range/Units 00:40 01:13 WBC (4.8-10.8) K/uL RBC (4.2-5.4) M/uL Hgb (12.0-16.0) g/dL Hct (37-47) % MCV (80-100) fL MCH (25-34) pg MCHC (32-36) g/dL RDW Std Deviation (36.4-46.3) fL RDW Coeff of Josue (11.5-14.5) % Plt Count (130-400) K/uL MPV (7.4-10.4) fL Immature Gran % (Auto) % Neut % (Auto) % Lymph % (Auto) % Rush % (Auto) % Eos % (Auto) % Baso % (Auto) % Neut # (Auto) (1.4-6.5) K/uL Lymph # (Auto) (1.2-3.4) K/uL Rush # (Auto) (0.11-0.59) K/uL Eos # (Auto) (0-0.5) K/uL Baso # (Auto) (0-0.2) K/uL Immature Gran # (Auto) (0.00-0.02) K/uL Polychromasia PT (9.0-12.0) Seconds INR (0.9-1.1) APTT (21.0-31.0) Seconds PTT Ratio Sodium (136-145) mmol/L Potassium (3.5-5.1) mmol/L Chloride (98-107) mmol/L Carbon Dioxide (21-32) mmol/L Anion Gap (3-11) BUN (7-18) mg/dl Creatinine (0.6-1.2) mg/dl Est Cr Clr Drug Dosing ml/min Est GFR ( Amer) ml/min Est GFR (Non-Af Amer) ml/min BUN/Creatinine Ratio (10-20) Glucose (70-99) mg/dl Lactate 2.1 H* (0.4-2.0) mmol/L Calcium (8.5-10.1) mg/dl Magnesium (1.8-2.4) mg/dl Total Bilirubin (0.2-1) mg/dl AST (15-37) U/L ALT (12-78) U/L Alkaline Phosphatase (45-117) U/L Troponin I (0-0.045) ng/ml NT-Pro-B Natriuret Pep (0-1800) pg/ml Total Protein (6.4-8.2) gm/dl Albumin (3.4-5.0) gm/dl Globulin (2.5-4.0) gm/dl Albumin/Globulin Ratio (0.9-2) TSH (0.300-4.500) uIu/ml Free T4 (0.8-1.6) ng/dl Bld Cult Staph aureus PCR Negative (Negative) Blood Culture MRSA PCR Negative (Negative) Administered Medications Discontinued Medications Cefdinir (Cefdinir 300 Mg Cap) 300 mg PO BID LONI; Protocol Stop: 01/28/21 08:59 Last Admin: 01/23/21 11:56 Dose: 300 mg Documented by: [id number] Clopidogrel Bisulfate (Clopidogrel Bisulfate 75 Mg Tab) [facility] [place]: 02/19/21 08:59 Last Admin: 01/23/21 10:40 Dose: 75 mg Documented by: [id number] Admin: 01/22/21 08:42 Dose: 75 mg Documented by: [id number] Admin: 01/21/21 08:27 Dose: 75 mg Documented by: [id number] Admin: 01/20/21 09:46 Dose: 75 mg Documented by: [id number] Dexamethasone (Dexamethasone Sod Inj 4 Mg/Ml Vial) 6 mg IV ONE ONE Stop: 01/20/21 02:46 Last Admin: 01/20/21 04:12 Dose: 6 mg Documented by: [id number] Admin: 01/20/21 04:12 Dose: 4 mg Documented by: [id number] Diltiazem HCl (Diltiazem Hcl 5 Mg/Ml 5 Ml Vial) 10 mg IV NOW STA Stop: 01/20/21 01:48 Last Admin: 01/20/21 02:22 Dose: 10 mg Documented by: [id number] Cosigned by: [id number] Doxycycline Hyclate (Doxycycline Hyclate 100 Mg Cap) 100 mg PO BID@0900,1900 LONI Stop: 01/27/21 18:59 Last Admin: 01/23/21 10:40 Dose: 100 mg Documented by: [id number] Admin: 01/22/21 17:58 Dose: 100 mg Documented by: [id number] Admin: 01/22/21 08:42 Dose: 100 mg Documented by: [id number] Admin: 01/21/21 18:19 Dose: 100 mg Documented by: [id number] Admin: 01/21/21 08:27 Dose: 100 mg Documented by: [id number] Admin: 01/20/21 19:53 Dose: 100 mg Documented by: [id number] Ferrous Sulfate (Ferrous Sulfate 325 Mg Tab) 325 mg PO QPM LONI Stop: 02/19/21 20:59 Last Admin: 01/22/21 20:55 Dose: 325 mg Documented by: [id number] Admin: 01/21/21 20:15 Dose: 325 mg Documented by: [id number] Admin: 01/20/21 22:15 Dose: 325 mg Documented by: [id number] Furosemide (Furosemide 40 Mg/4 Ml Vial) 40 mg IV NOW STA Stop: 01/20/21 01:47 Last Admin: 01/20/21 02:22 Dose: 40 mg Documented by: [id number] Furosemide (Furosemide 40 Mg/4 Ml Vial) 20 mg IV ONE ONE Stop: 01/20/21 10:31 Last Admin: 01/20/21 10:38 Dose: 20 mg Documented by: [id number] Furosemide (Furosemide 40 Mg/4 Ml Vial) 20 mg IV ONE ONE Stop: 01/21/21 16:01 Last Admin: 01/21/21 16:34 Dose: 20 mg Documented by: [id number] Furosemide (Furosemide 20 Mg Tab) 20 mg PO QAM LONI Stop: 02/22/21 08:59 Last Admin: 01/23/21 10:42 Dose: 20 mg Documented by: [id number] Furosemide (Furosemide 40 Mg/4 Ml Vial) 20 mg IV 1415 LONI Stop: 01/22/21 19:00 Last Admin: 01/22/21 14:20 Dose: 20 mg Documented by: [id number] Guaifenesin (Guaifenesin 600 Mg Tabcr) 600 mg PO Q12 LONI Stop: 02/19/21 06:57 Last Admin: 01/23/21 10:44 Dose: 600 mg Documented by: [id number] Admin: 01/22/21 20:54 Dose: 600 mg Documented by: [id number] Admin: 01/22/21 08:41 Dose: 600 mg Documented by: [id number] Admin: 01/21/21 20:14 Dose: 600 mg Documented by: [id number] Admin: 01/21/21 08:26 Dose: 600 mg Documented by: [id number] Admin: 01/20/21 22:15 Dose: 600 mg Documented by: [id number] Admin: 01/20/21 09:46 Dose: 600 mg Documented by: [id number] Sodium Chloride (Nss 1000ml) 1,000 mls @ 100 mls/hr IV .Q10H STA Stop: 01/20/21 10:49 Last Infusion: 01/20/21 09:56 Dose: 0 mls/hr Documented by: [id number] Admin: 01/20/21 01:14 Dose: 100 mls/hr Documented by: [id number] Acetaminophen (Ofirmev) 1,000 mg in 100 mls @ 400 mls/hr IV NOW STA Stop: 01/20/21 01:04 Last Infusion: 01/20/21 07:00 Dose: 0 mls/hr Documented by: [id number] Admin: 01/20/21 01:14 Dose: 400 mls/hr Documented by: [id number] Potassium Chloride (K Wilson / Wtr) 10 meq in 100 mls @ 100 mls/hr IV Q1H LONI Stop: 01/20/21 03:29 Last Infusion: 01/20/21 07:01 Dose: 0 mls/hr Documented by: [id number] Admin: 01/20/21 06:03 Dose: 100 mls/hr Documented by: [id number] Infusion: 01/20/21 03:22 Dose: 100 mls/hr Documented by: [id number] Admin: 01/20/21 02:22 Dose: 100 mls/hr Documented by: [id number] Magnesium Sulfate/Dextrose (Magnesium Sulfate / D5w) 1 gm in 100 mls @ 50 mls/hr IV Q2H LONI Stop: 01/20/21 07:29 Last Infusion: 01/20/21 10:46 Dose: 0 mls/hr Documented by: [id number] Admin: 01/20/21 08:05 Dose: 50 mls/hr Documented by: [id number] Infusion: 01/20/21 07:00 Dose: 0 mls/hr Documented by: [id number] Admin: 01/20/21 04:07 Dose: 50 mls/hr Documented by: [id number] Doxycycline Hyclate 100 mg/ (Dextrose) 110 mls @ 50 mls/hr IV NOW STA Stop: 01/20/21 05:40 Last Infusion: 01/20/21 07:01 Dose: 0 mls/hr Documented by: [id number] Admin: 01/20/21 04:26 Dose: 50 mls/hr Documented by: [id number] Remdesivir 200 mg/ Sodium (Chloride) 250 mls @ 125 mls/hr IV ONE STA; Protocol Stop: 01/20/21 05:32 Last Infusion: 01/20/21 09:04 Dose: 0 mls/hr Documented by: [id number] Admin: 01/20/21 05:14 Dose: 125 mls/hr Documented by: [id number] Potassium Chloride (K Wilson / Wtr) 10 meq in 100 mls @ 100 mls/hr IV Q1H LONI Stop: 01/20/21 11:59 Last Infusion: 01/20/21 16:54 Dose: 0 mls/hr Documented by: [id number] Admin: 01/20/21 15:36 Dose: 100 mls/hr Documented by: [id number] Infusion: 01/20/21 14:45 Dose: 100 mls/hr Documented by: [id number] Admin: 01/20/21 13:45 Dose: 100 mls/hr Documented by: [id number] Infusion: 01/20/21 13:25 Dose: 100 mls/hr Documented by: [id number] Admin: 01/20/21 12:25 Dose: 100 mls/hr Documented by: [id number] Infusion: 01/20/21 11:42 Dose: 100 mls/hr Documented by: [id number] Admin: 01/20/21 10:42 Dose: 100 mls/hr Documented by: [id number] Infusion: 01/20/21 09:59 Dose: 100 mls/hr Documented by: [id number] Admin: 01/20/21 08:59 Dose: 100 mls/hr Documented by: [id number] Infusion: 01/20/21 08:59 Dose: 100 mls/hr Documented by: [id number] Admin: 01/20/21 08:05 Dose: 100 mls/hr Documented by: [id number] Heparin Sodium/Dextrose (Heparin Sodium/Dextrose) 25,000 units in 500 mls @ 10 mls/hr IV .Q24H LONI; Protocol Stop: 02/19/21 06:14 Last Admin: 01/23/21 08:39 Dose: 500 units/hr, 10 mls/hr Documented by: [id number] Cosigned by: [id number] Titration: 01/23/21 08:39 Dose: 550 units/hr, 11 mls/hr Documented by: [id number] Cosigned by: [id number] Titration: 01/23/21 07:10 Dose: 550 units/hr, 11 mls/hr Documented by: [id number] Cosigned by: [id number] Titration: 01/22/21 19:15 Dose: 550 units/hr, 11 mls/hr Documented by: [id number] Cosigned by: [id number] Admin: 01/22/21 10:01 Dose: 550 units/hr, 11 mls/hr Documented by: [id number] Cosigned by: [id number] Titration: 01/22/21 10:01 Dose: 550 units/hr, 11 mls/hr Documented by: [id number] Cosigned by: [id number] Titration: 01/22/21 09:52 Dose: 550 units/hr, 11 mls/hr Documented by: [id number] Cosigned by: [id number] Titration: 01/22/21 07:03 Dose: 550 units/hr, 11 mls/hr Documented by: [id number] Cosigned by: [id number] Titration: 01/21/21 21:13 Dose: 550 units/hr, 11 mls/hr Documented by: [id number] Cosigned by: [id number] Titration: 01/21/21 19:14 Dose: 550 units/hr, 11 mls/hr Documented by: [id number] Cosigned by: [id number] Titration: 01/21/21 13:52 Dose: 550 units/hr, 11 mls/hr Documented by: [id number] Cosigned by: [id number] Titration: 01/21/21 06:41 Dose: 600 units/hr, 12 mls/hr Documented by: [id number] Cosigned by: [id number] Admin: 01/21/21 06:19 Dose: 650 units/hr, 13 mls/hr Documented by: [id number] Cosigned by: [id number] Titration: 01/21/21 06:19 Dose: 650 units/hr, 13 mls/hr Documented by: [id number] Cosigned by: [id number] Titration: 01/20/21 23:11 Dose: 650 units/hr, 13 mls/hr Documented by: [id number] Cosigned by: [id number] Titration: 01/20/21 22:08 Dose: 0 units/hr, 0 mls/hr Documented by: [id number] Cosigned by: [id number] Titration: 01/20/21 19:11 Dose: 800 units/hr, 16 mls/hr Documented by: [id number] Cosigned by: [id number] Titration: 01/20/21 16:38 Dose: 800 units/hr, 16 mls/hr Documented by: [id number] Cosigned by: [id number] Admin: 01/20/21 08:49 Dose: 950 units/hr, 19 mls/hr Documented by: [id number] Cosigned by: [id number] Dexamethasone 6 mg/ Syringe 1.5 mls @ 1 mls/min IV DAILY LONI Stop: 02/20/21 08:59 Last Admin: 01/23/21 10:37 Dose: 1 mls/min Documented by: [id number] Admin: 01/22/21 08:41 Dose: 1 mls/min Documented by: [id number] Admin: 01/21/21 08:26 Dose: 1 mls/min Documented by: [id number] Remdesivir 100 mg/ Sodium (Chloride) 250 mls @ 250 mls/hr IV Q24H LONI; Protocol Stop: 01/24/21 12:59 Last Infusion: 01/23/21 13:02 Dose: 0 mls/hr Documented by: [id number] Admin: 01/23/21 11:53 Dose: 250 mls/hr Documented by: [id number] Infusion: 01/22/21 14:14 Dose: 0 mls/hr Documented by: [id number] Admin: 01/22/21 12:36 Dose: 250 mls/hr Documented by: [id number] Infusion: 01/21/21 12:40 Dose: 0 mls/hr Documented by: [id number] Admin: 01/21/21 11:05 Dose: 250 mls/hr Documented by: [id number] Potassium Chloride (K Wilson / Wtr) 10 meq in 100 mls @ 100 mls/hr IV Q1H STA Stop: 01/20/21 10:19 Last Admin: 01/20/21 10:45 Dose: Not Given Documented by: [id number] Levalbuterol HCl (Levalbuterol Tartrate 15 Gm Hfa.Aer.Ad) 2 puffs INH NOW STA Stop: 01/20/21 02:36 Last Admin: 01/20/21 04:16 Dose: 2 puffs Documented by: [id number] Levalbuterol HCl (Levalbuterol Tartrate 15 Gm Hfa.Aer.Ad) 2 puffs INH QIDR LONI Stop: 02/19/21 10:59 Last Admin: 01/21/21 08:06 Dose: 2 puffs Documented by: [id number] Admin: 01/20/21 19:31 Dose: 2 puffs Documented by: [id number] Admin: 01/20/21 15:16 Dose: 2 puffs Documented by: [id number] Admin: 01/20/21 11:21 Dose: 2 puffs Documented by: [id number] Admin: 01/20/21 07:46 Dose: 2 puffs Documented by: [id number] Levalbuterol HCl (Levalbuterol Tartrate 15 Gm Hfa.Aer.Ad) 2 puffs INH QIDR PRN PRN Reason: Wheezing Stop: 02/19/21 10:59 Last Admin: 01/22/21 04:39 Dose: 2 puffs Documented by: [id number] Levothyroxine Sodium (Levothyroxine Sodium 88 Mcg Tablet) 88 mcg PO Duke@0630 [facility] Stop: 02/19/21 07:59 Last Admin: 01/23/21 05:35 Dose: 88 mcg Documented by: [id number] Admin: 01/22/21 06:00 Dose: 88 mcg Documented by: [id number] Admin: 01/21/21 06:19 Dose: 88 mcg Documented by: [id number] Admin: 01/20/21 09:45 Dose: 88 mcg Documented by: [id number] Magnesium Oxide (Magnesium Oxide 400 Mg Tab) 400 mg PO BID [facility] Stop: 02/19/21 09:29 Last Admin: 01/23/21 10:42 Dose: 400 mg Documented by: [id number] Admin: 01/22/21 20:54 Dose: 400 mg Documented by: [id number] Admin: 01/22/21 08:41 Dose: 400 mg Documented by: [id number] Admin: 01/21/21 20:14 Dose: 400 mg Documented by: [id number] Admin: 01/21/21 08:27 Dose: 400 mg Documented by: [id number] Admin: 01/20/21 22:14 Dose: 400 mg Documented by: [id number] Admin: 01/20/21 09:45 Dose: 400 mg Documented by: [id number] Melatonin (Melatonin 3 Mg Tab) 3 mg PO HSZ [facility] Stop: 02/19/21 21:59 Last Admin: 01/22/21 21:05 Dose: 3 mg Documented by: [id number] Admin: 01/21/21 20:23 Dose: 3 mg Documented by: [id number] Admin: 01/20/21 22:17 Dose: 3 mg Documented by: [id number] Metoprolol Succinate (Metoprolol Succ 25mg Ext Rel Tab) 25 mg PO BID [facility] Stop: 02/19/21 03:29 Last Admin: 01/23/21 10:37 Dose: 25 mg Documented by: [id number] Admin: 01/22/21 21:05 Dose: 25 mg Documented by: [id number] Admin: 01/22/21 08:41 Dose: 25 mg Documented by: [id number] Admin: 01/21/21 20:14 Dose: 25 mg Documented by: [id number] Admin: 01/21/21 08:27 Dose: 25 mg Documented by: [id number] Admin: 01/20/21 22:14 Dose: 25 mg Documented by: [id number] Admin: 01/20/21 04:09 Dose: 25 mg Documented by: [id number] Potassium Chloride (Potassium Chloride Pwd 20 Meq Pack) 40 meq PO NOW STA Stop: 01/20/21 03:13 Last Admin: 01/20/21 04:10 Dose: 40 meq Documented by: [id number] Potassium Chloride (Potassium Chloride Crtab 20 Meq Tabcr) 40 meq PO NOW STA Stop: 01/20/21 09:21 Last Admin: 01/20/21 10:45 Dose: Not Given Documented by: [id number] Potassium Chloride (Potassium Chloride Crtab 20 Meq Tabcr) 40 meq PO NOW STA Stop: 01/23/21 09:32 Last Admin: 01/23/21 11:59 Dose: 40 meq Documented by: [id number] Rosuvastatin Calcium (Rosuvastatin Calcium 10 Mg Tab) 10 mg PO HS [facility] Stop: 02/19/21 20:59 Last Admin: 01/22/21 21:06 Dose: 10 mg Documented by: [id number] Admin: 01/21/21 20:15 Dose: 10 mg Documented by: [id number] Admin: 01/20/21 22:15 Dose: 10 mg Documented by: [id number] Senna/Docusate Sodium (Docusate Sodium/Senna 50/8.6mg Tab) 1 tab PO BID [facility]ONI Stop: 02/19/21 08:59 Last Admin: 01/23/21 10:43 Dose: 1 tab Documented by: [id number] Admin: 01/22/21 20:55 Dose: 1 tab Documented by: [id number] Admin: 01/22/21 08:41 Dose: 1 tab Documented by: [id number] Admin: 01/21/21 20:15 Dose: 1 tab Documented by: [id number] Admin: 01/21/21 08:27 Dose: 1 tab Documented by: [id number] Admin: 01/20/21 22:15 Dose: 1 tab Documented by: [id number] Admin: 01/20/21 09:45 Dose: 1 tab Documented by: [id number] Sodium Chloride (Sodium Chloride 0.9% 10ml Flush) 30 ml IV Q24H LONI Stop: 01/24/21 12:01 Last Admin: 01/23/21 12:01 Dose: 30 ml Documented by: [id number] Admin: 01/22/21 12:39 Dose: 30 ml Documented by: [id number] Admin: 01/21/21 11:05 Dose: 30 ml Documented by: [id number] Spironolactone (Spironolactone 25 Mg Tab) 25 mg PO DAILY LONI Stop: 02/19/21 08:59 Last Admin: 01/23/21 10:38 Dose: 25 mg Documented by: [id number] Admin: 01/22/21 08:41 Dose: 25 mg Documented by: [id number] Admin: 01/21/21 08:27 Dose: 25 mg Documented by: [id number] Admin: 01/20/21 09:46 Dose: 25 mg Documented by: [id number] Blood Pressure Blood Pressure Findings: Low blood pressure Blood Pressure Disposition: Referred to patients primary care provider Discharge Plan Visit Data Chief Complaint: Respiratory Problems Stated Complaint: RESPIRATORY(COVID+) ED Provider: Alla Dunlap Discharge Problem: Acute hypoxemic respiratory failure, Atrial fibrillation with RVR, Pneumonia due to 2019 novel coronavirus, Acute hypokalemia Patient Disposition: Admitted As Inpatient Discharge Instructions Interventions: ED Discharge Assessment Last Done: 01/20/21 06:32
[2021-01-20 01:02] LABS: Hematocrit (blood only) 35.4 % (37-47); Hemoglobin 11.2 g/dL (12.0-16.0); Mean Corpuscular Hemoglobin 25.8 pg (25-34); Mean Corpuscular Hgb Conc 31.6 g/dL (32-36); Mean Corpuscular Volume 81.6 fL (80-100); Mean Platelet Volume 9.9 fL (7.4-10.4); Platelet Count 149 K/uL (130-400); RDW Coefficient of Variation 17.8 % (11.5-14.5); RDW Standard Deviation 53.7 fL (36.4-46.3); Red Blood Count 4.34 M/uL (4.2-5.4); White Blood Count 2.89 K/uL (4.8-10.8)
[2021-01-20 01:22] LABS: Albumin Level 2.6 gm/dl (3.4-5.0); Calcium 8.3 mg/dl (8.5-10.1); Creatinine Clr Calc Pharmacy 52.2 ml/min; Est GFR (African American) 92.4 ml/min; Est GFR (Non-African American) 79.8 ml/min; Potassium 2.9 mmol/L (3.5-5.1)
[2021-01-20 01:26] LABS: Basophils # (auto) 0.01 K/uL (0-0.2); Basophils % (auto) 0.3 %; Eosinophils # (auto) 0.01 K/uL (0-0.5); Eosinophils % (auto) 0.3 %; Immature Granulocytes # (auto) 0.01 K/uL (0.00-0.02); Immature Granulocytes % (auto) 0.3 %; Lymphocytes # (auto) 0.55 K/uL (1.2-3.4); Monocytes % (auto) 10.4 %; Neutrophils # (auto) 2.01 K/uL (1.4-6.5); Neutrophils % (auto) 69.7 %; Polychromasia 1+
[2021-01-20 01:41] LABS: Albumin Globulin Ratio 0.9 (0.9-2); Bilirubin,Total 0.5 mg/dl (0.2-1); Globulin 2.9 gm/dl (2.5-4.0); Total Protein 5.5 gm/dl (6.4-8.2); Troponin I 0.258 ng/ml (0-0.045)
[2021-01-20] MEDS ORDERED: FUROSEMIDE 40 MG/4 ML VIAL IV STA (01:46)
[2021-01-20] MEDS ORDERED: dilTIAZem HCl 5 MG/ML 5 ML VIAL IV STA (01:47)
[2021-01-20 02:08] LABS: INR 1.1 (0.9-1.1); Partial Thromboplastin Ratio 1.4; Partial Thromboplastin Time 36.3 Seconds (21.0-31.0); Prothrombin Time 11.4 Seconds (9.0-12.0)
[2021-01-20] MEDS: POTASSIUM CHLORIDE / WTR 10 MEQ/100 ML PLCT IV SCH ×8 (02:22→15:36)
[2021-01-20] MEDS ORDERED: dexAMETHasone 6 MG in SYRINGE 0 ML IV ONE (02:32)
[2021-01-20] MEDS ORDERED: LEVALBUTEROL TARTRATE 15 GM HFA.AER.AD INH STA (02:35)
[2021-01-20] MEDS ORDERED: POTASSIUM CHLORIDE PWD 20 MEQ PACK PO STA (03:12)
[2021-01-20 03:15] LABS: Magnesium 1.6 mg/dl (1.8-2.4); Thyroid Stimulating Hormone 4.6 uIu/ml (0.300-4.500)
--- NOTE | 2021-01-20 03:15 | History & Physical Report ---
Date of Service January 20, 2021 Assessment & Plan (1) Acute hypoxemic respiratory failure: Plan: Multifactorial : Severe COVID-19 pneumonia/complicated bronchitis, possible sepsis Decompensated heart failure, history systolic dysfunction NSTEMI secondary to illness Rapid A. fib secondary to illness, not on anticoagulation at the alf valvular heart disease (moderate to severe , mild TR), pulmonary hypertension as per records HTN, BP stable hyperlipidemia on statin Rx history CVA as per records/ hx PVD hypothyroidism, TSH slight elevated chronic anemia, hemoglobin better than baseline Hypokalemia secondary to home diuretic Rx Hyperglycemia rule out DM past tobacco abuse PCU Supplemental O2 Baseline ABG CS, Doxycycline Decadron and Remdesivir indicated for severe COVID-19 pneumonia. (Patient agreeable to risk of Remdesivir treatment after discussion over the phone.) Pulmonary consult if without improvement Diuretic Rx Strict I/Os, daily weights, CHF education Follow troponin Update TTE given significant troponin bump IV heparin for NSTEMI and thromboembolic prophylaxis for A. fib Replace potassium Check hemoglobin A1c DVT prophylaxis with IV Heparin Full code Patient's requesting updates from providers. Mr. Negrito Tolliver, contact numbers [phone]. Total critical care time was 45 minutes. Text document was generated using [email or web address] voice recognition software. It may contain grammatical or spelling errors. Kindly contact undersigned for clarification of any documentation item in question. History of Present Illness Chief Complaint: Hypoxemia, Covid as per records Primary Care Provider: Bulmaro Forbes History obtained from patient, family, and records. History limited from patient secondary to hearing impairment. Medical history significant for chronic systolic heart failure (EF 35-to 40%, TTE 2020), A. fib not on anticoagulation (risks outweighing benefits as per records), valvular heart disease (moderate to severe , mild TR), pulmonary hypertension as per records, HTN, hyperlipidemia, history CVA as per records, hx PVD, hypothyroidism, chronic anemia (baseline hemoglobin 10 ), past tobacco abuse. Last confinement August 2020 for decompensated heart failure and rapid A. fib. 2D echo showed EF of 35 to 40%, LA dilatation, multiple hypertension. 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 Anticoagulation for A. fib not recommended due to high risk for falls as per records. Few days history of cough symptoms, patient unable to get it out. Patient denies chest pain, S OB. Outpatient COVID-19 test at alf found to be positive. Patient noted to be increasingly short of breath yesterday, with rhonchi, and hypoxemic, O2 sats 88 as per records. Patient also noted to be febrile 100.3. Patient brought to the ER for evaluation. MEDICAL HISTORY: As above. SURGERIES: She has had hip surgery, appendectomy, knee surgery, wrist ganglion surgery FAMILY HISTORY: Hypertension, stroke PERSONAL AND SOCIAL HISTORY: Past tobacco use, no chronic intake of alcoholic beverages. 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 senior living resident. Born in [facility]. Allergies Allergy/AdvReac Type Severity Reaction Status Date / Time LINH Inhibitors Allergy Unknown ON Verified 01/20/21 01:16 [facility] aminophylline Allergy Unknown ON Verified 01/20/21 01:16 [facility] amoxicillin Allergy Unknown SWELLING Verified 01/20/21 01:16 OF HANDS- ON [facility] [employer] MED LIST Penicillins Allergy Unknown ON Verified 01/20/21 01:16 [employer] MED LIST Home Medications Medication Instructions Recorded Confirmed Type clopidogrel 75 mg tablet 75 mg PO QAM tab 11/21/18 01/20/21 History cholecalciferol (vitamin D3) 25 25 mcg PO HS 11/12/19 01/20/21 History mcg (1,000 unit) tablet (Vitamin D3) levothyroxine 88 mcg tablet 88 mcg PO 6XWK 11/12/19 01/20/21 History rosuvastatin 10 mg tablet 10 mg PO HS 11/12/19 01/20/21 History acetaminophen 325 mg tablet 650 mg PO Q4H PRN #90 tab MDD 3 09/12/20 01/20/21 Rx GRAMS/24 HOURS ascorbic acid (vitamin C) 500 mg 500 mg PO DAILY 01/20/21 01/20/21 History tablet (Vitamin C) dextromethorphan-guaifenesin 10 15 ml PO Q4H PRN 01/20/21 01/20/21 History mg-200 mg/5 mL oral liquid ferrous sulfate 325 mg (65 mg 325 mg PO QPM 01/20/21 01/20/21 History iron) tablet,delayed release food supplemt, lactose-reduced 240 ea PO HS 01/20/21 01/20/21 History food supplemt, lactose-reduced 240 ea PO QAM 01/20/21 01/20/21 History furosemide 20 mg tablet 20 mg PO 3XWK 01/20/21 01/20/21 History ipratropium 0.5 mg-albuterol 3 mg 3 ml INHALATION Q8H 01/20/21 01/20/21 History (2.5 mg base)/3 mL nebulization soln lanolin alcohols-mineral 1 applic TOPICAL AMPM 01/20/21 01/20/21 History oil-w.petrolatum-ceresin topical cream (Minerin Creme) melatonin 5 mg tablet 5 mg PO HS 01/20/21 01/20/21 History menthol 0.44 %-zinc oxide 20.6 % 1 applic TOPICAL BID 01/20/21 01/20/21 History topical ointment (Calmoseptine) methylprednisolone 4 mg tablet 4 mg PO DAILY 01/20/21 01/20/21 History metoprolol succinate 25 mg 25 mg PO BID 01/20/21 01/20/21 History tablet,extended release 24 hr sennosides 8.6 mg-docusate sodium 1 tab-cap PO BID 01/20/21 01/20/21 History 50 mg tablet (Senna Plus) spironolactone 25 mg tablet 25 mg PO DAILY 01/20/21 01/20/21 History Past Med/Surg History Medical History History of CVA (cerebrovascular accident) HLD (hyperlipidemia) HTN (hypertension) Hypothyroidism Left hemiparesis Surgical History History of appendectomy History of bilateral hip replacements History of cholecystectomy History of loop electrical excision procedure (LEEP) History of nasal polypectomy Hx of total knee arthroplasty Family History Other Hypertension Stroke Denies family history of Ovarian cancer Breast cancer Social History Smoking Status: Never smoker Hx Alcohol Use: No Hx Substance Use: No Preferred Language: Maltese Communication Ability: Effective Hadoop Admin Required: No Beliefs That Will Affect Care: None marital status: Current Living Situation: Rehab Other Information That Helps Us Care for You: No Feels Safe at Home: Yes Safety Concerns: Feels Safe At This Time Assistive Devices: Denture - Upper, Denture - Lower and Glasses Review of Systems Review of Systems: Could not be reliably obtained Physical Exam Physical Exam: GENERAL: Comfortable, hard of hearing, no respiratory distress SKIN: Pallor, warm HEENT: Pale palpebral conjunctivae, no ptosis, dry buccal mucosa, nasal cannula in place NECK : Supple, no tenderness CHEST : Decreased breath sounds, no tenderness HEART : Irregular, tachycardic, systolic murmur ABDOMEN: Some distention, nontender EXTREMITIES : Minimal LE swelling, no LE tenderness, no other conspicuous def ormities noted NEUROLOGIC : Coherent, no facial asymmetry, hard of hearing, gait and stance not assessed Results & Data Results & Data ([facility]) Vital Signs (Past 12 Hours) Vital Signs Temp Pulse Resp BP Pulse Ox 01/20/21 00:41 37.5 C 115 H 28 H 122/85 97 Laboratory Results Laboratory Results WBC 2.89 K/uL (4.8-10.8) L 01/20/21 00:40 RBC 4.34 M/uL (4.2-5.4) 01/20/21 00:40 Hgb 11.2 g/dL (12.0-16.0) L 01/20/21 00:40 Hct 35.4 % (37-47) L 01/20/21 00:40 MCV 81.6 fL (80-100) 01/20/21 00:40 MCH 25.8 pg (25-34) 01/20/21 00:40 MCHC 31.6 g/dL (32-36) L 01/20/21 00:40 RDW Std Deviation 53.7 fL (36.4-46.3) H 01/20/21 00:40 RDW Coeff of Josue 17.8 % (11.5-14.5) H 01/20/21 00:40 Plt Count 149 K/uL (130-400) 01/20/21 00:40 MPV 9.9 fL (7.4-10.4) 01/20/21 00:40 Immature Gran % (Auto) 0.3 % 01/20/21 00:40 Neut % (Auto) 69.7 % 01/20/21 00:40 Lymph % (Auto) 19.0 % 01/20/21 00:40 [place] % (Auto) 10.4 % 01/20/21 00:40 Eos % (Auto) 0.3 % 01/20/21 00:40 Baso % (Auto) 0.3 % 01/20/21 00:40 Neut # (Auto) 2.01 K/uL (1.4-6.5) 01/20/21 00:40 Lymph # (Auto) 0.55 K/uL (1.2-3.4) L 01/20/21 00:40 Chicot # (Auto) 0.30 K/uL (0.11-0.59) 01/20/21 00:40 Eos # (Auto) 0.01 K/uL (0-0.5) 01/20/21 00:40 Baso # (Auto) 0.01 K/uL (0-0.2) 01/20/21 00:40 Immature Gran # (Auto) 0.01 K/uL (0.00-0.02) 01/20/21 00:40 Polychromasia 1+ 01/20/21 00:40 PT 11.4 Seconds (9.0-12.0) 01/20/21 00:40 INR 1.1 (0.9-1.1) 01/20/21 00:40 APTT 36.3 Seconds (21.0-31.0) H 01/20/21 00:40 PTT Ratio 1.4 01/20/21 00:40 Sodium 132 mmol/L (136-145) L 01/20/21 00:40 Potassium 2.9 mmol/L (3.5-5.1) L 01/20/21 00:40 Chloride 105 mmol/L (98-107) 01/20/21 00:40 Carbon Dioxide 23 mmol/L (21-32) 01/20/21 00:40 Anion Gap 4.0 (3-11) 01/20/21 00:40 BUN 18 mg/dl (7-18) 01/20/21 00:40 Creatinine 0.68 mg/dl (0.6-1.2) 01/20/21 00:40 Est Cr Clr Drug Dosing 52.2 ml/min 01/20/21 00:40 Est GFR ( Amer) 92.4 ml/min 01/20/21 00:40 Est GFR (Non-Af Amer) 79.8 ml/min 01/20/21 00:40 BUN/Creatinine Ratio 26.0 (10-20) H 01/20/21 00:40 Glucose 200 mg/dl (70-99) H 01/20/21 00:40 Lactate 2.1 mmol/L (0.4-2.0) H* 01/20/21 01:13 Calcium 8.3 mg/dl (8.5-10.1) L 01/20/21 00:40 Magnesium 1.6 mg/dl (1.8-2.4) L 01/20/21 00:40 Total Bilirubin 0.5 mg/dl (0.2-1) 01/20/21 00:40 AST 15 U/L (15-37) 01/20/21 00:40 ALT 9 U/L (12-78) L 01/20/21 00:40 Alkaline Phosphatase 93 U/L (45-117) 01/20/21 00:40 Troponin I 0.258 ng/ml (0-0.045) H* 01/20/21 00:40 NT-Pro-B Natriuret Pep 03075 pg/ml (0-1800) H 01/20/21 00:40 Total Protein 5.5 gm/dl (6.4-8.2) L 01/20/21 00:40 Albumin 2.6 gm/dl (3.4-5.0) L 01/20/21 00:40 Globulin 2.9 gm/dl (2.5-4.0) 01/20/21 00:40 Albumin/Globulin Ratio 0.9 (0.9-2) 01/20/21 00:40 TSH 4.600 uIu/ml (0.300-4.500) H 01/20/21 00:40 Diagnostic Findings Chest x-ray from interpretation cardiomegaly, congestion, pleural effusion EKG as per my interpretation : Rate 135, A. fib, LAD, LAFB, LVH, ST depression anterolateral leads
[2021-01-20] MEDS ORDERED: DOXYCYCLINE HYCLATE 100 MG in DEXTROSE 5% 100 ML IV STA (03:29)
[2021-01-20] MEDS ORDERED: REMDESIVIR 200 MG in SODIUM CHLORIDE 0.9% 210 ML IV STA (03:33)
[2021-01-20 03:38] LABS: T4 Free Thyroxine 1.51 ng/dl (0.8-1.6)
[2021-01-20] MEDS: MAGNESIUM SULFATE / D5W 1 GM/100 ML BAG IV SCH ×2 (04:07→08:05)
[2021-01-20] MEDS: METOPROLOL SUCC 25MG EXT REL TAB PO SCH ×2 (04:09→22:14)
[2021-01-20] MEDS: DEXAMETHASONE SOD INJ 4 MG/ML VIAL IV ONE (04:12)
[2021-01-20 05:16] LABS: Base Excess ABG -0.5 mEq/L (-9-1.8); HCO3 ABG 23 mmol/L (19-24); PCO2 ABG 31 mmHg (35-46); PO2 ABG 76 mmHg (80-95); pH ABG 7.48 (7.35-7.45)
[2021-01-20 05:23] LABS: Allen Test Pos (Pos)
[2021-01-20] MEDS ORDERED: POTASSIUM CHLORIDE PWD 20 MEQ PACK PO ONE (05:30)
[2021-01-20] MEDS ORDERED: Heparin IV Adult Wt-Based Standard *NO* Bolus Protocol IV SCH (05:49)
[2021-01-20 06:46] LABS: Appearance Urine Turbid (Clear); Bilirubin Urine Negative (Negative); Blood Urine 2+ (Negative); Color Urine Brown; Glucose Urine UA Negative (Negative); Ketones Urine Negative (Negative); Leukocyte Esterase Urine 3+ (Negative); Nitrite Urine Negative (Negative); Protein Urine 2+ (Negative); Specific Gravity Urine 1.025 (1.000-1.030); Urobilinogen Urine Negative (Negative)
[2021-01-20 06:52] LABS: Epithelial Cell Urine 0-5 /lpf (0-5); RBC Urine 0-4 /hpf (0-4)
[2021-01-20 06:53] LABS: Amorphous Sediment Urine Present (None Prsent); Bacteria Urine 1+ (Negative)
[2021-01-20] MEDS ORDERED: ACETAMINOPHEN 325 MG TAB PO PRN ×2 (06:58)
[2021-01-20] MEDS ORDERED: PROMETHAZINE HCL 6.25 MG in SODIUM CHLORIDE 0.9% 50 ML IV PRN (06:58)
[2021-01-20] MEDS: LEVALBUTEROL TARTRATE 15 GM HFA.AER.AD INH SCH ×4 (07:46→19:31)
[2021-01-20] MEDS ORDERED: FUROSEMIDE 40 MG/4 ML VIAL IV ONE ×3 (08:00→17:00)
--- NOTE | 2021-01-20 08:39 | XRay Report ---
XR chest 1V portable HISTORY: Fever COMPARISON: Chest 09/06/2020. FINDINGS: No pneumothorax. Small bilateral pleural effusions, unchanged. The heart remains enlarged. There is diffuse interstitial thickening with patchy bilateral airspace opacities. This has progresse d in the interval. IMPRESSION: 1. Diffuse interstitial thickening with patchy bilateral airspace opacities. This could represent pro gressive pulmonary edema or a superimposed pneumonia. 2. Cardiomegaly and small bilateral pleural effusions are again noted. ACT 112: Negative or not required by law. Electronically signed by: Rogerio Mcgee M.D. 01/20/2021 8:37 AM
[2021-01-20] MEDS: HEPARIN SODIUM/DEXTROSE 25,000 UNITS/500 ML BAG IV SCH (08:49)
[2021-01-20] MEDS ORDERED: NON-FORMULARY MEDICATION (Food Supplemt, Lactose-Reduced Liquid) PO SCH ×2 (09:00→21:00)
[2021-01-20] MEDS ORDERED: POTASSIUM CHLORIDE CRTAB 20 MEQ TABCR PO STA (09:20)
[2021-01-20] MEDS ORDERED: POTASSIUM CHLORIDE / WTR 10 MEQ/100 ML PLCT IV STA (09:20)
[2021-01-20] MEDS: LEVOTHYROXINE SODIUM 88 MCG TABLET PO SCH (09:45)
[2021-01-20] MEDS: MAGNESIUM OXIDE 400 MG TAB PO SCH ×2 (09:45→22:14)
[2021-01-20] MEDS: DOCUSATE SODIUM/SENNA 50/8.6MG TAB PO SCH ×2 (09:45→22:15)
[2021-01-20] MEDS: guaiFENesin 600 MG TABCR PO SCH ×2 (09:46→22:15)
[2021-01-20] MEDS: CLOPIDOGREL BISULFATE 75 MG TAB PO SCH (09:46)
[2021-01-20] MEDS: SPIRONOLACTONE 25 MG TAB PO SCH (09:46)
[2021-01-20] MEDS ORDERED: FUROSEMIDE 20 MG in SYRINGE 0 ML IV ONE (10:18)
--- NOTE | 2021-01-20 10:35 | Cardiology Consultation ---
Date of Consultation January 20, 2021 Assessment & Plan (1) COVID-19: (2) Acute hypoxemic respiratory failure: (3) Acute on chronic heart failure with reduced ejection fraction and diastolic dysfunction: (4) Atrial fibrillation with RVR: (5) Aortic stenosis: (6) Non-ST elevation (NSTEMI) myocardial infarction: 85-year-old female admitted with acute hypoxemic respiratory failure secondary to COVID-19 pneumonia. Atrial fibrillation with rapid ventricular response and heart rates up to 140 bpm recorded on admission. Heart rate has improved with beta-cristobal therapy and hydration. She is currently resting comfortably. Poor historian. Denies shortness of breath or chest discomfort. Unable to recall symptoms leading to current hospitalization. X-ray demonstrates evidence of pulmonary vascular congestion and possible underlying pneumonia. Recommend Lasix 20 mg IV x1 now. Replace electrolytes as indicated including potassium and magnesium. Repeat basic metabolic panel at 4 PM today. Continue Aldactone 25 mg daily. I would not recommend aggressive diuresis currently as she is stable from a respiratory standpoint with borderline hypotension (which is chronic). Continue intravenous heparin. She does not appear to be a long-term candidate for oral anticoagulation due to underlying dementia, frailty, bleeding risk, and fall risk. Rate control strategy recommended. Continue beta-cristobal. 2D echocardiogram ordered. Continue telemetry monitoring. History of Present Illness Reason for Consultation: Elevated troponin Requesting Physician: Dr. Prabhakar Attending Physician: Soo Prabhakar MD History of Present Illness 85-year-old female presented to the emergency department with cough and shortness of breath. [facility]-19 positive at [facility]. Sent to emergency department due to hypoxia and fevers. Atrial fibrillation with rapid ventricular response noted on admission. Troponin trending upward to 13.10. Carries a history of chronic atrial fibrillation, moderate to borderline severe aortic stenosis, and ischemic cardiomyopathy with chronic systolic heart failure. Patient seen and examined at the bedside in the Covid unit. She is a poor historian and hard of hearing. Denies chest pain or shortness of breath currently. Intermittent cough noted during examination. No sputum production. Denies orthopnea, PND, or palpitations. Denies any recent falls or injury. No focal weakness, slurred speech, or paresthesias. Allergies Allergy/AdvReac Type Severity Reaction Status Date / Time amoxicillin Allergy Intermediate SWELLING Verified 01/21/21 14:02 OF HANDS- ON [facility] Penicillins Allergy Intermediate ON Verified 01/21/21 14:02 [facility] LIST LINH Inhibitors Allergy Unknown ON Verified 01/20/21 01:16 [facility] LIST aminophylline Allergy Unknown ON Verified 01/20/21 01:16 [facility] LIST Home Medications Medication Instructions Recorded Confirmed Type clopidogrel 75 mg tablet 75 mg PO QAM tab 11/21/18 01/20/21 History cholecalciferol (vitamin D3) 25 25 mcg PO HS 11/12/19 01/20/21 History mcg (1,000 unit) tablet (Vitamin D3) levothyroxine 88 mcg tablet 88 mcg PO 6XWK 11/12/19 01/20/21 History rosuvastatin 10 mg tablet 10 mg PO HS 11/12/19 01/20/21 History acetaminophen 325 mg tablet 650 mg PO Q4H PRN #90 tab MDD 3 09/12/20 01/20/21 Rx GRAMS/24 HOURS ascorbic acid (vitamin C) 500 mg 500 mg PO DAILY 01/20/21 01/20/21 History tablet (Vitamin C) dextromethorphan-guaifenesin 10 15 ml PO Q4H PRN 01/20/21 01/20/21 History mg-200 mg/5 mL oral liquid ferrous sulfate 325 mg (65 mg 325 mg PO QPM 01/20/21 01/20/21 History iron) tablet,delayed release food supplemt, lactose-reduced 240 ea PO HS 01/20/21 01/20/21 History food supplemt, lactose-reduced 240 ea PO QAM 01/20/21 01/20/21 History furosemide 20 mg tablet 20 mg PO 3XWK 01/20/21 01/20/21 History ipratropium 0.5 mg-albuterol 3 mg 3 ml INHALATION Q8H 01/20/21 01/20/21 History (2.5 mg base)/3 mL nebulization soln lanolin alcohols-mineral 1 applic TOPICAL AMPM 01/20/21 01/20/21 History oil-w.petrolatum-ceresin topical cream (Minerin Creme) melatonin 5 mg tablet 5 mg PO HS 01/20/21 01/20/21 History menthol 0.44 %-zinc oxide 20.6 % 1 applic TOPICAL BID 01/20/21 01/20/21 History topical ointment (Calmoseptine) methylprednisolone 4 mg tablet 4 mg PO DAILY 01/20/21 01/20/21 History metoprolol succinate 25 mg 25 mg PO BID 01/20/21 01/20/21 History tablet,extended release 24 hr sennosides 8.6 mg-docusate sodium 1 tab-cap PO BID 01/20/21 01/20/21 History 50 mg tablet (Senna Plus) spironolactone 25 mg tablet 25 mg PO DAILY 01/20/21 01/20/21 History Patient History Medical History History of CVA (cerebrovascular accident) HLD (hyperlipidemia) HTN (hypertension) Hypothyroidism Left hemiparesis Surgical History History of appendectomy History of bilateral hip replacements History of cholecystectomy History of loop electrical excision procedure (LEEP) History of nasal polypectomy Hx of total knee arthroplasty Family History Other Hypertension Stroke Denies family history of Ovarian cancer Breast cancer Social History Smoking Status: Never smoker Hx Alcohol Use: No Hx Substance Use: No Preferred Language: Armenian Communication Ability: Effective 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 Development Manager Required: No Beliefs That Will Affect Care: None marital status: Current Living Situation: Rehab Other Information That Helps Us Care for You: No Feels Safe at Home: Yes Safety Concerns: Feels Safe At This Time Assistive Devices: Walker Review of Systems Review of Systems: Unobtainable due to cognitive status Physical Exam Constitutional: well developed, + ill appearing and + thin Respiratory: no respiratory distress, no labored breathing and no retractions Auscultation: + rales (Bilateral bases); no rhonchi and no wheezes Cardiovascular: Rate/Rhythm: + irregularly irregular Heart Sounds: normal S1, normal S2 and + murmur (2/6 mid-late peaking systolic murmur heard best at the base); no cardiac rub Vessels: + JVD; no carotid bruit and + radial pulses abnormal Extremities: no edema Gastrointestinal (Abdomen): Inspection/Auscultation: abdomen normal to in spection and normal bowel sounds; abdomen not distended Percussion/Palpation: abdomen soft; abdomen nontender, no guarding and abdomen not rigid Neurologic: CN's II-XI intact bilaterally and moves all extremities; no focal motor deficits Motor/Sensory: no tremor Results & Data ([facility] [place]) Vital Signs (Past 12 Hours) Vital Signs Temp Pulse Pulse Pulse Resp BP BP 01/20/21 07:51 36 C L 85 16 107/72 01/20/21 07:48 84 22 01/20/21 06:32 88 20 01/20/21 06:25 36.4 C L 81 20 114/75 01/20/21 05:11 86 19 119/84 01/20/21 04:17 80 24 01/20/21 04:14 75 22 98/63 L 01/20/21 00:41 37.5 C 115 H 28 H 122/85 Pulse Ox 01/20/21 07:51 99 01/20/21 07:48 98 01/20/21 06:32 01/20/21 06:25 97 01/20/21 05:11 99 01/20/21 04:17 99 01/20/21 04:14 98 01/20/21 00:41 97
[2021-01-20 15:47] LABS: BUN Creatinine Ratio 24.6 (10-20); Calcium 7.7 mg/dl (8.5-10.1); Creatinine Clr Calc Pharmacy 53.4 ml/min; Est GFR (African American) 93.8 ml/min; Magnesium 2.1 mg/dl (1.8-2.4); Potassium 4.5 mmol/L (3.5-5.1)
[2021-01-20 15:56] LABS: Partial Thromboplastin Ratio 4.2
[2021-01-20 16:31] LABS: Partial Thromboplastin Time 111.6 Seconds (21.0-31.0)
--- NOTE | 2021-01-20 16:59 | Electrocardiogram Report ---
Test Reason : Blood Pressure : / mmHG Vent. Rate : 134 BPM Atrial Rate : 156 BPM P-R Int : 000 ms QRS Dur : 102 ms QT Int : 332 ms P-R-T Axes : 000 -42 159 degrees QTc Int : 495 ms Poor data quality, interpretation may be adversely affected Atrial fibrillation with rapid ventricular response with premature ventricular or aberrantly conducte d complexes Left axis deviation Minimal voltage criteria for LVH, may be normal variant Nonspecific ST abnormality Abnormal ECG When compared with ECG of 08-SEP-2020 06:40, T wave inversion no longer evident in Inferior leads T wave inversion now evident in Lateral leads Confirmed by Matias Ewing ([id number]) on 01/20/2021 4:58:48 PM Referred By: Es Potter Confirmed By:Abhishek Ewing
--- NOTE | 2021-01-20 18:55 | Hospitalist Progress Note ---
Date of Service January 20, 2021 Assessment & Plan (1) Acute hypoxemic respiratory failure: Plan: Multifactorial : Severe COVID-19 pneumonia/complicated bronchitis, possible sepsis Decompensated heart failure, history systolic dysfunction Decadron and Remdesivir indicated for severe COVID-19 pneumonia. (Patient agreeable to risk of Remdesivir treatment after discussion over the phone.) Pulmonary consult if without improvement Clinically better and saturating normally on 1 to 2 L of oxygen NSTEMI secondary to illness Rapid A. fib secondary to illness, not on anticoagulation at the long-term valvular heart disease (moderate to severe , mild TR), pulmonary hypertension as per records Continue intravenous heparin Appreciate cardiology input and recommendation HTN, BP stable Now on the lower side Hyperlipidemia on statin Rx History CVA as per records/ hx PVD No acute findings Hypothyroidism, TSH slight elevated Chronic anemia, hemoglobin better than baseline Hyperglycemia rule out DM We will put her on SSI past tobacco abuse DVT prophylaxis with IV Heparin Full code Patient's requesting updates from providers. Mr. Negrito Tolliver, contact numbers [phone]. Admission and Anticipated Discharge Date Admission Date: January 20, 2021 Subjective 2021-01-20 The patient was seen and examined in telemetry unit in [facility] room She is very hard of hearing but denies any symptoms Review of Systems Review of Systems: All systems reviewed and are unremarkable except as noted below Respiratory: No respiratory symptoms Physical Exam Physical Exam: Lying in bed comfortably Constitutional: + ill appearing and average body habitus Eyes: PERRL, conjunctivae normal, anicteric sclerae ENMT: external ear and nose normal, oropharynx normal Neck: trachea midline, no thyromegaly Respiratory: no respiratory distress and no cough Auscultation: + diminished lung sounds and + crackles (Minimal bibasilar crackles) Gastrointestinal (Abdomen): Inspection/Auscultation: normal bowel sounds; abdomen not distended Musculoskeletal: No acute arthritis in any joint Neurologic: Alert, awake and oriented x3 Results & Data Results & Data ([facility]) Vital Signs (Past 12 Hours) Vital Signs Temp Pulse Pulse Resp BP Pulse Ox 01/20/21 16:03 36.4 C L 89 18 102/75 98 01/20/21 15:17 78 20 98 01/20/21 11:42 36.6 C 79 16 97/72 L 98 01/20/21 11:22 77 17 98 01/20/21 07:51 36 C L 85 16 107/72 99 01/20/21 07:48 84 22 98 Laboratory Results Short CBC 01/20/21 Range/Units 00:40 WBC 2.89 L (4.8-10.8) K/uL Hgb 11.2 L (12.0-16.0) g/dL Hct 35.4 L (37-47) % Plt Count 149 (130-400) K/uL BMP 01/20/21 01/20/21 00:40 15:02 Sodium 132 L 136 Potassium 2.9 L 4.5 D Chloride 105 104 Carbon Dioxide 23 22 BUN 18 16 Creatinine 0.68 0.65 Glucose 200 H 140 H Calcium 8.3 L 7.7 L Cardiac Enzymes 01/20/21 01/20/21 01/20/21 Range/Units 00:40 05:01 12:17 Troponin I 0.258 H* 13.100 H* 8.800 H* (0-0.045) ng/ml Liver Function 01/20/21 Range/Units 00:40 Total Bilirubin 0.5 (0.2-1) mg/dl AST 15 (15-37) U/L ALT 9 L (12-78) U/L Alkaline Phosphatase 93 (45-117) U/L Albumin 2.6 L (3.4-5.0) gm/dl Urine 01/20/21 Range/Units 05:10 Urine Color Brown Urine Appearance Turbid A (Clear) Urine pH 8.0 H (4.5-7.5) Ur Specific Wiley 1.025 (1.000-1.030) Urine Protein 2+ H (Negative) Urine Glucose (UA) Negative (Negative) Medications Administered Current Inpatient Medications Acetaminophen (Acetaminophen 325 Mg Tab) 650 mg PO Q4H PRN PRN Reason: fever or pain Stop: 02/19/21 06:57 Clopidogrel Bisulfate (Clopidogrel Bisulfate 75 Mg Tab) 75 mg PO QAM [facility]ON[facility] Stop: 02/19/21 08:59 Last Admin: 01/20/21 09:46 Dose: 75 mg Documented by: Doxycycline Hyclate (Doxycycline Hyclate 100 Mg Cap) 100 mg PO BID@0900,1900 [facility] Stop: 01/27/21 18:59 Ferrous Sulfate (Ferrous Sulfate 325 Mg Tab) 325 mg PO QPM [facility]ON[facility] Stop: 02/19/21 20:59 Guaifenesin (Guaifenesin 600 Mg Tabcr) 600 mg PO Q12 [facility] Stop: 02/19/21 06:57 Last Admin: 01/20/21 09:46 Dose: 600 mg Documented by: Heparin Sodium/Dextrose (Heparin Sodium/Dextrose) 25,000 units in 500 mls @ 16 mls/hr IV .Q24H [facility]; Protocol Stop: 02/19/21 06:14 Last Titration: 01/20/21 16:38 Dose: 800 units/hr, 16 mls/hr Documented by: Promethazine HCl 6.25 mg/ (Sodium Chloride) 50.25 mls @ 201 mls/hr IV Q6H PRN PRN Reason: Nausea And Vomiting Stop: 02/19/21 06:57 Dexamethasone 6 mg/ Syringe 1.5 mls @ 1 mls/min IV DAILY [facility] Stop: 02/20/21 08:59 Remdesivir 100 mg/ Sodium (Chloride) 250 mls @ 250 mls/hr IV Q24H [facility]; Protocol Stop: 01/24/21 12:59 Levalbuterol HCl (Levalbuterol Tartrate 15 Gm Hfa.Aer.Ad) 2 puffs INH QIDR [facility] Stop: 02/19/21 10:59 Last Admin: 01/20/21 15:16 Dose: 2 puffs Documented by: Levothyroxine Sodium (Levothyroxine Sodium 88 Mcg Tablet) 88 mcg PO [id number]@0630 [facility] Stop: 02/19/21 07:59 Last Admin: 01/20/21 09:45 Dose: 88 mcg Documented by: Magnesium Oxide (Magnesium Oxide 400 Mg Tab) 400 mg PO BID [facility] Stop: 02/19/21 09:29 Last Admin: 01/20/21 09:45 Dose: 400 mg Documented by: Melatonin (Melatonin 3 Mg Tab) 3 mg PO HSZ [facility] Stop: 02/19/21 21:59 Metoprolol Succinate (Metoprolol Succ 25mg Ext Rel Tab) 25 mg PO BID [facility] Stop: 02/19/21 03:29 Last Admin: 01/20/21 04:09 Dose: 25 mg Documented by: Rosuvastatin Calcium (Rosuvastatin Calcium 10 Mg Tab) 10 mg PO HS [facility] Stop: 02/19/21 20:59 Senna/Docusate Sodium (Docusate Sodium/Senna 50/8.6mg Tab) 1 tab PO BID [facility] Stop: 02/19/21 08:59 Last Admin: 01/20/21 09:45 Dose: 1 tab Documented by: Sodium Chloride (Sodium Chloride 0.9% 10ml Flush) 30 ml IV Q24H [facility] Stop: 01/24/21 12:01 Spironolactone (Spironolactone 25 Mg Tab) 25 mg PO DAILY [facility] Stop: 02/19/21 08:59 Last Admin: 01/20/21 09:46 Dose: 25 mg Documented by:
[2021-01-20] MEDS: DOXYCYCLINE HYCLATE 100 MG CAP PO SCH (19:53)
[2021-01-20 22:00] LABS: Partial Thromboplastin Ratio 4.2
[2021-01-20 22:07] LABS: Partial Thromboplastin Time 110.3 Seconds (21.0-31.0)
[2021-01-20] MEDS: ROSUVASTATIN CALCIUM 10 MG TAB PO SCH (22:15)
[2021-01-20] MEDS: FERROUS SULFATE 325 MG TAB PO SCH (22:15)
[2021-01-20] MEDS: MELATONIN 3 MG TAB PO SCH (22:17)
[2021-01-21 06:13] LABS: Eosinophils # (auto) 0.01 K/uL (0-0.5); Eosinophils % (auto) 0.4 %; Hematocrit (blood only) 33.6 % (37-47); Hemoglobin 10.3 g/dL (12.0-16.0); Immature Granulocytes # (auto) 0.01 K/uL (0.00-0.02); Immature Granulocytes % (auto) 0.4 %; Lymphocytes # (auto) 0.68 K/uL (1.2-3.4); Lymphocytes % (auto) 27.9 %; Mean Corpuscular Hgb Conc 30.7 g/dL (32-36); Mean Corpuscular Volume 81.6 fL (80-100); Mean Platelet Volume 10.3 fL (7.4-10.4); Monocytes # (auto) 0.23 K/uL (0.11-0.59); Monocytes % (auto) 9.4 %; Neutrophils # (auto) 1.51 K/uL (1.4-6.5); Neutrophils % (auto) 61.9 %; Platelet Count 152 K/uL (130-400); RDW Standard Deviation 53.6 fL (36.4-46.3); Red Blood Count 4.12 M/uL (4.2-5.4); White Blood Count 2.44 K/uL (4.8-10.8)
[2021-01-21] MEDS: LEVOTHYROXINE SODIUM 88 MCG TABLET PO SCH (06:19)
[2021-01-21] MEDS: HEPARIN SODIUM/DEXTROSE 25,000 UNITS/500 ML BAG IV SCH (06:19)
[2021-01-21 06:34] LABS: Partial Thromboplastin Ratio 2.8
[2021-01-21 06:40] LABS: Partial Thromboplastin Time 73.5 Seconds (21.0-31.0)
[2021-01-21 07:22] LABS: BUN Creatinine Ratio 27.8 (10-20); C Reactive Protein 6.04 mg/dl (0-0.29); Calcium 8.2 mg/dl (8.5-10.1); Creatinine Clr Calc Pharmacy 63.6 ml/min; Est GFR (African American) 99.7 ml/min; Magnesium 2.2 mg/dl (1.8-2.4); Phosphorus 2.5 mg/dl (2.5-4.9); Potassium 4.3 mmol/L (3.5-5.1)
[2021-01-21] MEDS: LEVALBUTEROL TARTRATE 15 GM HFA.AER.AD INH SCH (08:06)
[2021-01-21] MEDS: guaiFENesin 600 MG TABCR PO SCH ×2 (08:26→20:14)
[2021-01-21] MEDS: dexAMETHasone 6 MG in SYRINGE 0 ML IV SCH (08:26)
[2021-01-21] MEDS: DOCUSATE SODIUM/SENNA 50/8.6MG TAB PO SCH ×2 (08:27→20:15)
[2021-01-21] MEDS: DOXYCYCLINE HYCLATE 100 MG CAP PO SCH ×2 (08:27→18:19)
[2021-01-21] MEDS: CLOPIDOGREL BISULFATE 75 MG TAB PO SCH (08:27)
[2021-01-21] MEDS: SPIRONOLACTONE 25 MG TAB PO SCH (08:27)
[2021-01-21] MEDS: MAGNESIUM OXIDE 400 MG TAB PO SCH ×2 (08:27→20:14)
[2021-01-21] MEDS: METOPROLOL SUCC 25MG EXT REL TAB PO SCH ×2 (08:27→20:14)
[2021-01-21] MEDS ORDERED: LEVALBUTEROL TARTRATE 15 GM HFA.AER.AD INH PRN (10:13)
[2021-01-21] MEDS: SODIUM CHLORIDE 0.9% 10ML FLUSH IV SCH (11:05)
[2021-01-21] MEDS: REMDESIVIR 100 MG in SODIUM CHLORIDE 0.9% 230 ML IV SCH (11:05)
[2021-01-21 13:48] LABS: Partial Thromboplastin Ratio 2.5
[2021-01-21] MEDS ORDERED: FUROSEMIDE 20 MG in SYRINGE 0 ML IV ONE (15:58)
[2021-01-21] MEDS ORDERED: FUROSEMIDE 40 MG/4 ML VIAL IV ONE (16:00)
--- NOTE | 2021-01-21 16:04 | Cardiology Progress Note ---
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 Moderate to severe aortic valve stenosis noted. Gradients unchanged when compared to most recent study dated 09/07/2020. Recommend 20 mg intravenous Lasix x1 now. Follow fluid balance, daily weight, GFR, and electrolytes. Continue rate control strategy with metoprolol 25 mg twice daily. Continue intravenous heparin. She does not appear to be a long- term candidate for oral anticoagulation due to underlying dementia, frailty, bleeding risk, and fall risk. Continue telemetry monitoring. Admission and Anticipated Discharge Date Admission Date: January 20, 2021 Subjective Patient seen and examined at the bedside. She is hard of hearing and a poor historian. Requesting discharge. States "I feel fine". Denies chest pain or shortness of breath. No cough, orthopnea, or PND. Review of Systems Review of Systems: All systems reviewed & are unremarkable except as noted in Subjective Physical Exam Constitutional: well developed, + ill appearing and + thin Respiratory: no respiratory distress, no labored breathing and no retractions Auscultation: + rales (Bilateral bases); no rhonchi and no wheezes Cardiovascular: Rate/Rhythm: + irregularly irregular Heart Sounds: normal S1, normal S2 and + murmur (2/6 mid-late peaking systolic murmur heard best at the base); no cardiac rub Vessels: + JVD; no carotid bruit and + radial pulses abnormal Extremities: no edema Gastrointestinal (Abdomen): Inspection/Auscultation: abdomen normal to inspection and normal bowel sounds; abdomen not distended Percussion/Palpation: abdomen soft; abdomen nontender, no guarding and abdomen not rigid Neurologic: CN's II-XI intact bilaterally and moves all extremities; no focal motor deficits Motor/Sensory: no tremor Results & Data ([facility]) Vital Signs (Past 12 Hours) Vital Signs Temp Pulse Pulse Resp BP Pulse Ox 01/21/21 08:06 90 18 97 01/21/21 08:00 97 H 01/21/21 07:32 36.3 C L 95 H 18 115/91 97
[2021-01-21] MEDS: ROSUVASTATIN CALCIUM 10 MG TAB PO SCH (20:15)
[2021-01-21] MEDS: FERROUS SULFATE 325 MG TAB PO SCH (20:15)
[2021-01-21] MEDS: MELATONIN 3 MG TAB PO SCH (20:23)
[2021-01-21 20:34] LABS: Partial Thromboplastin Ratio 2.5
[2021-01-21 20:41] LABS: Partial Thromboplastin Time 65.3 Seconds (21.0-31.0)
[2021-01-22] MEDS: LEVOTHYROXINE SODIUM 88 MCG TABLET PO SCH (06:00)
[2021-01-22] MEDS: MAGNESIUM OXIDE 400 MG TAB PO SCH ×2 (08:41→20:54)
[2021-01-22] MEDS: DOCUSATE SODIUM/SENNA 50/8.6MG TAB PO SCH ×2 (08:41→20:55)
[2021-01-22] MEDS: guaiFENesin 600 MG TABCR PO SCH ×2 (08:41→20:54)
[2021-01-22] MEDS: METOPROLOL SUCC 25MG EXT REL TAB PO SCH ×2 (08:41→21:05)
[2021-01-22] MEDS: dexAMETHasone 6 MG in SYRINGE 0 ML IV SCH (08:41)
[2021-01-22] MEDS: SPIRONOLACTONE 25 MG TAB PO SCH (08:41)
[2021-01-22] MEDS: DOXYCYCLINE HYCLATE 100 MG CAP PO SCH ×2 (08:42→17:58)
[2021-01-22] MEDS: CLOPIDOGREL BISULFATE 75 MG TAB PO SCH (08:42)
[2021-01-22 09:39] LABS: Partial Thromboplastin Ratio 2.3
[2021-01-22 09:49] LABS: Partial Thromboplastin Time 61.3 Seconds (21.0-31.0)
[2021-01-22] MEDS: HEPARIN SODIUM/DEXTROSE 25,000 UNITS/500 ML BAG IV SCH (10:01)
[2021-01-22 10:42] LABS: Albumin Level 2.5 gm/dl (3.4-5.0); BUN Creatinine Ratio 28.9 (10-20); C Reactive Protein 4.19 mg/dl (0-0.29); Calcium 8.4 mg/dl (8.5-10.1); Creatinine Clr Calc Pharmacy 55.5 ml/min; Est GFR (African American) 95.8 ml/min; Est GFR (Non-African American) 82.7 ml/min; Potassium 3.8 mmol/L (3.5-5.1)
[2021-01-22 10:47] LABS: Albumin Globulin Ratio 0.9 (0.9-2); Bilirubin,Total 0.4 mg/dl (0.2-1); Ferritin 1094.5 ng/ml (8-388); Globulin 2.7 gm/dl (2.5-4.0); Total Protein 5.2 gm/dl (6.4-8.2)
[2021-01-22] MEDS: REMDESIVIR 100 MG in SODIUM CHLORIDE 0.9% 230 ML IV SCH (12:36)
[2021-01-22] MEDS: SODIUM CHLORIDE 0.9% 10ML FLUSH IV SCH (12:39)
[2021-01-22] MEDS ORDERED: FUROSEMIDE 20 MG in SYRINGE 0 ML IV ONE (13:58)
--- NOTE | 2021-01-22 13:58 | Cardiology Progress Note ---
Date of Service January 22, 2021 Assessment & Plan (1) COVID-19: (2) Acute hypoxemic respiratory failure: (3) Acute on chronic heart failure with reduced ejection fraction and diastolic dysfunction: (4) Atrial fibrillation with RVR: (5) Aortic stenosis: (6) Non-ST elevation (NSTEMI) myocardial infarction: Plan: Repeat echocardiogram demonstrating severe left ventricular systolic dysfunction, ejection fraction 20-25%. Moderate to severe aortic valve stenosis noted. Gradients unchanged when compared to most recent study dated 09/07/2020. Oxygenation improved with medical therapy and diuresis. Recommend Lasix 20 mg IV today with addition of 20 mg p.o. Lasix daily. Continue rate control strategy with metoprolol 25 mg twice daily. Continue intravenous heparin. She does not appear to be a long-term candidate for oral anticoagulation due to underlying dementia, frailty, bleeding risk, and fall risk. Continue telemetry monitoring. Admission and Anticipated Discharge Date Admission Date: January 20, 2021 Subjective Patient seen and examined at the bedside. Poor historian and hard of hearing. Requesting discharge. Offers no complaints. Denies chest pain, shortness of breath, orthopnea, PND, or lower extremity edema. Review of Systems Review of Systems: All systems reviewed & are unremarkable except as noted in Subjective Physical Exam Constitutional: well developed, + ill appearing and + thin Respiratory: no respiratory distress, no labored breathing and no retractions Auscultation: + rales (Right base ); no rhonchi and no wheezes Cardiovascular: Rate/Rhythm: + irregularly irregular Heart Sounds: normal S1, normal S2 and + murmur (2/6 mid-late peaking systolic murmur heard best at the base); no cardiac rub Vessels: + JVD; no carotid bruit and + radial pulses abnormal Extremities: no edema Gastrointestinal (Abdomen): Inspection/Auscultation: abdomen normal to inspection and normal bowel sounds; abdomen not distended Percussion/Palpation: abdomen soft; abdomen nontender, no guarding and abdomen not rigid Neurologic: CN's II-XI intact bilaterally and moves all extremities; no focal motor deficits Motor/Sensory: no tremor Results & Data ([facility]) Vital Signs (Past 12 Hours) Vital Signs Temp Pulse Pulse Resp BP Pulse Ox 01/22/21 11:51 36.6 C 84 18 110/79 98 01/22/21 07:49 36.5 C 77 17 112/82 97 01/22/21 07:47 81 01/22/21 04:44 66 20 95 01/22/21 03:21 36.3 C L 75 20 105/72 96 01/22/21 02:46 84
[2021-01-22] MEDS ORDERED: FUROSEMIDE 40 MG/4 ML VIAL IV SCH (14:15)
[2021-01-22] MEDS: FERROUS SULFATE 325 MG TAB PO SCH (20:55)
[2021-01-22] MEDS: MELATONIN 3 MG TAB PO SCH (21:05)
[2021-01-22] MEDS: ROSUVASTATIN CALCIUM 10 MG TAB PO SCH (21:06)
--- NOTE | 2021-01-22 21:42 | Hospitalist Progress Note ---
Date of Service January 22, 2021 Assessment & Plan (1) Acute hypoxemic respiratory failure: Plan: COVID 19 Severe COVID-19 pneumonia/complicated bronchitis, possible sepsis Decompensated heart failure, history systolic dysfunction CXR showed Diffuse interstitial thickening with patchy bilateral airspace opacities Decadron and Remdesivir indicated for severe COVID-19 pneumonia. (Patient agreeable to risk of Remdesivir treatment after discussion over the phone with previous hospitalist team Curently on remdesivir and Decadron Continue doxycycline for now Saturated well on RA NSTEMI secondary to illness Rapid A. 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 Severe global hypokinesis of the left ventricle. Ejection fraction 20 to 25% Cardiology on board Pt was getting IV lasix, transition to PO lasix 20mg daily Continue spironolactone 25 mg daily Will need close follow up with cardiology UTI Urine cx postive for gram negative bacilli Will start on Cefdinir HTN, BP stable Now on the lower side Hyperlipidemia on statin Rx History CVA as per records/ hx PVD No acute findings Hypothyroidism TSH slight elevated Chronic anemia hemoglobin better than baseline Hyperglycemia rule out DM Mostly due to the steroid Continue monitor BS past tobacco abuse DVT prophylaxis with IV Heparin Full code Patient's requesting updates from providers. Mr. Negrito Tolliver, contact numbers [phone]. Admission and Anticipated Discharge Date Admission Date: January 20, 2021 Subjective Pt was seen and examined for follow up of afib and covid 19 Lying in bed with no acute distress She said that she feels alot better She saturated well on RA Denies any chest pain, palpitation, dizziness and SOB Review of Systems Review of Systems: All systems reviewed & are unremarkable except as noted in Subjective Physical Exam Physical Exam: General- No acute distress Head- atraumatic Eyes- PERRL, EOMI, ENT- oropharynx clear Neck- supple, no JVD Lungs- diminished BS Heart- rate control Abdomen- normal bowel sounds, soft, nontender Extremities- no calf tenderness Neuro- alert, oriented x 3; PERRL, EOMI; no facial palsy; no dysarthria Skin- warm & dry Results & Data Results & Data ([facility]) Vital Signs (Past 12 Hours) Vital Signs Temp Pulse Resp BP BP Pulse Ox 01/22/21 20:56 108/77 01/22/21 19:17 36.4 C L 73 18 109/76 96 01/22/21 15:13 36.4 C L 75 17 109/71 95 01/22/21 11:51 36.6 C 84 18 110/79 98
[2021-01-23] MEDS: LEVOTHYROXINE SODIUM 88 MCG TABLET PO SCH (05:35)
[2021-01-23 08:03] LABS: Albumin Level 2.4 gm/dl (3.4-5.0); BUN Creatinine Ratio 34.8 (10-20); Calcium 8.4 mg/dl (8.5-10.1); Creatinine Clr Calc Pharmacy 63.1 ml/min; Est GFR (African American) 99.7 ml/min; Potassium 3.4 mmol/L (3.5-5.1)
[2021-01-23 08:08] LABS: Bilirubin,Total 0.5 mg/dl (0.2-1); C Reactive Protein 2.58 mg/dl (0-0.29); Ferritin 869.9 ng/ml (8-388); Globulin 2.4 gm/dl (2.5-4.0); Total Protein 4.8 gm/dl (6.4-8.2)
[2021-01-23 08:09] LABS: Partial Thromboplastin Ratio 2.6
[2021-01-23 08:38] LABS: Partial Thromboplastin Time 67.8 Seconds (21.0-31.0)
[2021-01-23] MEDS: HEPARIN SODIUM/DEXTROSE 25,000 UNITS/500 ML BAG IV SCH (08:39)
[2021-01-23] MEDS ORDERED: CEFDINIR 300 MG CAP PO SCH (09:00)
[2021-01-23] MEDS ORDERED: FUROSEMIDE 20 MG TAB PO SCH (09:00)
[2021-01-23] MEDS ORDERED: POTASSIUM CHLORIDE CRTAB 20 MEQ TABCR PO STA (09:31)
[2021-01-23] MEDS: METOPROLOL SUCC 25MG EXT REL TAB PO SCH (10:37)
[2021-01-23] MEDS: dexAMETHasone 6 MG in SYRINGE 0 ML IV SCH (10:37)
[2021-01-23] MEDS: SPIRONOLACTONE 25 MG TAB PO SCH (10:38)
[2021-01-23] MEDS: DOXYCYCLINE HYCLATE 100 MG CAP PO SCH (10:40)
[2021-01-23] MEDS: CLOPIDOGREL BISULFATE 75 MG TAB PO SCH (10:40)
[2021-01-23] MEDS: MAGNESIUM OXIDE 400 MG TAB PO SCH (10:42)
[2021-01-23] MEDS: DOCUSATE SODIUM/SENNA 50/8.6MG TAB PO SCH (10:43)
[2021-01-23] MEDS: guaiFENesin 600 MG TABCR PO SCH (10:44)
[2021-01-23] MEDS: REMDESIVIR 100 MG in SODIUM CHLORIDE 0.9% 230 ML IV SCH (11:53)
[2021-01-23] MEDS: SODIUM CHLORIDE 0.9% 10ML FLUSH IV SCH (12:01)
--- NOTE | 2021-01-23 14:48 | Discharge Summary ---
Date of Service January 23, 2021 Admission HPI Per Admitting Provider History obtained from patient, family, and records. History limited from patient secondary to hearing impairment. Medical history significant for chronic systolic heart failure (EF 35-to 40%, TTE 2020), A. fib not on anticoagulation (risks outweighing benefits as per records), valvular heart disease (moderate to severe , mild TR), pulmonary hypertension as per records, HTN, hyperlipidemia, history CVA as per records, hx PVD, hypothyroidism, chronic anemia (baseline hemoglobin 10 ), past tobacco abuse. Last confinement August 2020 for decompensated heart failure and rapid A. fib. 2D echo showed EF of 35 to 40%, LA dilatation, multiple hypertension. 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 Anticoagulation for A. fib not recommended due to high risk for falls as per records. Few days history of cough symptoms, patient unable to get it out. Patient denies chest pain, S OB. Outpatient COVID-19 test at senior care found to be positive. Patient noted to be increasingly short of breath yesterday, with rhonchi, and hypoxemic, O2 sats 88 as per records. Patient also noted to be febrile 100.3. Patient brought to the ER for evaluation. MEDICAL HISTORY: As above. SURGERIES: She has had hip surgery, appendectomy, knee surgery, wrist ganglion surgery FAMILY HISTORY: Hypertension, stroke PERSONAL AND SOCIAL HISTORY: Past tobacco use, no chronic intake of alcoholic beverages. 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 [facility] resident. Born in [facility]. Admission Exam Per Admitting Provider GENERAL: Comfortable, hard of hearing, no respiratory distress SKIN: Pallor, warm HEENT: Pale palpebral conjunctivae, no ptosis, dry buccal mucosa, nasal cannula in place NECK : Supple, no tenderness CHEST : Decreased breath sounds, no tenderness HEART : Irregular, tachycardic, systolic murmur ABDOMEN: Some distention, nontender EXTREMITIES : Minimal LE swelling, no LE tenderness, no other conspicuous deformities noted NEUROLOGIC : Coherent, no facial asymmetry, hard of hearing, gait and stance not assessed Principal Diagnosis (1) COVID-19: (2) Acute hypoxemic respiratory failure: (3) Acute on chronic heart failure with reduced ejection fraction and diastolic dysfunction: (4) Atrial fibrillation with RVR: (5) Aortic stenosis: (6) Non-ST elevation (NSTEMI) myocardial infarction: (7) UTI Discharge Exam General- No acute distress Head- atraumatic Eyes- PERRL, EOMI, ENT- oropharynx clear Neck- supple, no JVD Lungs- diminished BS Heart- Irregular rhythm, +murmur Abdomen- normal bowel sounds, soft, nontender Extremities- no calf tenderness Neuro- alert, oriented x 3; PERRL, EOMI; no facial palsy; no dysarthria Skin- warm & dry Discharge Data Allergies Allergy/AdvReac Type Severity Reaction Status Date / Time amoxicillin Allergy Intermediate SWELLING Verified 01/21/21 14:02 OF HANDS- ON WINDY Drug Response Dx MED LIST Penicillins Allergy Intermediate ON WIND Verified 01/21/21 14:02 [facility] LIST LINH Inhibitors Allergy Unknown cough Verified 01/23/21 14:22 aminophylline Allergy Unknown ON Verified 01/20/21 01:16 [facility] LIST Consultations 01/20/21 01:53 ED Decision to Admit Stat 01/20/21 06:58 Consult Cardiology Routine Hospital Course (1) Acute hypoxemic respiratory failure: COVID 19 Severe COVID-19 pneumonia/complicated bronchitis, possible sepsis Decompensated heart failure, history systolic dysfunction CXR showed Diffuse interstitial thickening with patchy bilateral airspace opacities Decadron and Remdesivir indicated for severe COVID-19 pneumonia. (Patient agreeable to risk of Remdesivir treatment after discussion over the phone with previous hospitalist team Currently on remdesivir and Decadron Saturated well on RA NSTEMI secondary to illness Rapid A. fib secondary to illness, not on anticoagulation at the senior care valvular heart disease (moderate to severe , mild TR), pulmonary hypertension as per records Continue intravenous heparin Cardiology on board Case discussed with cardiology that recommended to continue Heparin drip while inpatient No plan to continue anticoagulant since pt is very frail and risk fall Continue aspirin/plavix/metoprolol and spironolactone Will consider to start on low dose ACEI or ARB Pt had allergies with LINH inbitor. Confirmed with cardilogy Acute on chronic heart failure with reduced ejection fraction and diastolic dysfunction CXR showed Cardiomegaly and small bilateral pleural effusions are again noted Echo showed left ventricular systolic function is severely reduced. Severe global hypokinesis of the left ventricle. Ejection fraction 20 to 25% Cardiology on board Pt was getting IV lasix, transition to PO lasix 20mg daily Continue spironolactone 25 mg daily Will need close follow up with cardiology in 1-2 weeks UTI Urine cx positive for gram negative bacilli Continue Cefdinir HTN, BP stable Now on the lower side Hyperlipidemia on statin Rx History CVA as per records/ hx PVD No acute findings Hypothyroidism TSH slight elevated Chronic anemia hemoglobin better than baseline Hyperglycemia rule out DM Mostly due to the steroid Continue monitor BS past tobacco abuse DVT prophylaxis with IV Heparin Full code Patient's requesting updates from providers. Mr. Negrito Tolliver, contact numbers [phone]. Total Time Total Time Spent Total Time Spent (In Minutes): 35 minutes Discharge Plan Discharge Items Patient Disposition: Transfer Assisted Fac Reason For Visit: RESP FAILURE, COVID Discharge Diagnosis: (1) COVID-19: (2) Acute hypoxemic respiratory failure: (3) Acute on chronic heart failure with reduced ejection fraction and diastolic dysfunction: (4) Atrial fibrillation with RVR: (5) Aortic stenosis: (6) Non-ST elevation (NSTEMI) myocardial infarction: Activity: Resume your previous activity Non-emergency contact: Primary Care Provider and Sociology Professor Call non-emergency contact if: you have any medication questions Follow-up/Referrals: Bulmaro Forbes [Primary Care Provider] - Dewey Benoit DO [Sociology Professor] - (Date & Time 02/10/2021 1:00 PM Provider Dewey Benoit DO Department Cardiology, [facility] ) Diet: Heart Healthy Fluids: 1800ml (7 cups) Addtl Attending Provider Instructions: Follow up with your primary care provider at [facility] Follow up with cardiology in in 1 -2 weeks Check BMP on Wednesday to monitor electrolytes and renal function Continue social distance and wearing your mask Continue isolation for 10 to 14 days from the day testing positive for COVID 19 at the senior care Continue physical and occupation therapy Fall precaution and occupational therapy Continue fluid restriction to 1.8 L daily Home Isolation COVID-19 Instructions The following information about Home Isolation is from the CDC Website: https://www.cdc.gov/coronavirus/2019-ncov/hcp/waaqosap-otlfhqa-jspegc.html Stay home except to get medical care People who are mildly ill with COVID-19 are able to isolate at home during their illness. You should restrict activities outside your home, except for getting medical care. Do not go to work, school, or public areas. Avoid using public transportation, ride-sharing, or taxis. Separate yourself from other people and animals in your home People: As much as possible, you should stay in a specific room and away from ot her people in your home. Also, you should use a separate bathroom, if available. Animals: You should restrict contact with pets and other animals while you are sick with COVID-19, just like you would around other people. Although there have not been reports of pets or other animals becoming sick with COVID-19, it is still recommended that people sick with COVID-19 limit contact with animals until more information is known about the virus. When possible, have another member of your household care for your animals while you are sick. If you are sick with COVID-19, avoid contact with your pet, including petting, snuggling, being kissed or licked, and sharing food. If you must care for your pet or be around animals while you are sick, wash your hands before and after you interact with pets and wear a face mask. Call ahead before visiting your doctor If you have a medical appointment, call the healthcare provider and tell them that you have or may have COVID-19. This will help the healthcare providers office take steps to keep other people from getting infected or exposed. Wear a face mask You should wear a face mask when you are around other people (e.g., sharing a room or vehicle) or pets and before you enter a healthcare providers office. If you are not able to wear a face mask (for example, because it causes trouble breathing), then people who live with you should not stay in the same room with you, or they should wear a face mask if they enter your room. Cover your coughs and sneezes Cover your mouth and nose with a tissue when you cough or sneeze. Throw used tissues in a lined trash can. Immediately wash your hands with soap and water for at least 20 seconds or, if soap and water are not available, clean your hands with an alcohol-based hand sales support administrator that contains at least 60% alcohol. Clean your hands often Wash your hands often with soap and water for at least 20 seconds, especially after blowing your nose, coughing, or sneezing; going to the bathroom; and before eating or preparing food. If soap and water are not readily available, use an alcohol-based hand sales support administrator with at least 60% alcohol, covering all surfaces of your hands and rubbing them together until they feel dry. Soap and water are the best option if hands are visibly dirty. Avoid touching your eyes, nose, and mouth with unwashed hands. Avoid sharing personal household items You should not share dishes, drinking glasses, cups, eating utensils, towels, or bedding with other people or pets in your home. After using these items, they should be washed thoroughly with soap and water. Clean all high-touch surfaces everyday High touch surfaces include counters, tabletops, doorknobs, bathroom fixtures, toilets, phones, keyboards, tablets, and bedside tables. Also, clean any surfaces that may have blood, stool, or body fluids on them. Use a household cleaning spray or wipe, according to the label instructions. Labels contain instructions for safe and effective use of the cleaning product including pre cautions you should take when applying the product, such as wearing gloves and making sure you have good ventilation during use of the product. Monitor your symptoms Seek prompt medical attention if your illness is worsening (e.g., difficulty breathing).Beforeseeking care, call your healthcare provider and tell them that you have, or are being evaluated for, COVID-19. Put on a face mask before you enter the facility. These steps will help the healthcare providers office to keep other people in the office or waiting room from getting infected or exposed. Ask your healthcare provider to call the local or state health department. Persons who are placed under active monitoring or facilitated self- monitoring should follow instructions provided by their local health department or occupational health professionals, as appropriate. When working with your local health department check their available hours. If you have a medical emergency and need to call 911, notify the dispatch personnel that you have, or are being evaluated for COVID-19. If possible, put on a face mask before emergency medical services arrive. Discontinuing home isolation Patients with confirmed COVID-19 should remain under home isolation precautions until the risk of secondary transmission to others is thought to be low. The decision to discontinue home isolation precautions should be made on a [id number] basis, in consultation with healthcare providers and state and local health departments. Coronavirus disease 2019 (COVID-19) is a virus that causes a respiratory illness. It is caused by a coronavirus called 2019 novel coronavirus (2019- nCoV). There are many types of coronavirus. Coronaviruses are a very common cause of bronchitis. They may sometimes cause lung infection(pneumonia). Symptoms can range from mild to severe respiratory illness. These viruses are also foundin some animals. COVID-19 was first found in people in [facility], in late 2019. In 2020, several cases of COVID-19 have been confirmed in the [place] Public health officials are working to find the source. How the virus spreads is not yet fully known. It may be spread through droplets of fluid that a person coughs or sneezes into the air. It may be spread if you touch a surface with virus on it, such as a handle or object, and then touch your mouth. What are the symptoms of COVID-19? Some people have no symptoms or mild symptoms. Symptoms may appear 2 to 14 days after contact with the virus. Symptoms can include: Fever Coughing Trouble breathing What are possible complications from COVID-19? In many cases, this virus can cause infection (pneumonia) in both lungs. In some cases, this can cause . How is COVID-19 diagnosed? Your healthcare provider will ask about your symptoms. He or she will also ask about your recent travel and contact with sick people. Testing for the virus is only done through the CDC. If yourhealthcare provider thinks you may have COVID- 19, he or she will work with your local health department and the CDC on testing. Follow all instructions from your healthcare provider. COVID-19 is diagnosed by: Nasal and throat swab. A cotton-tipped swab is wiped inside your nose or throat. This is done to check for viruses in your nasal mucus. Sputum culture. A small sample of mucus coughed from your lungs (sputum) is collected if you have a cough. It is checked for the virus. How is COVID-19 treated? There is currently no medicine to treat the virus. Treatment is done to help your body while it fights the virus. This is known as supportive care. Supportive care may include: Pain medicine. These include acetaminophen and ibuprofen. They are used to help ease pain and reduce fever. Bed rest. This helps your body fight the illness. For severe illness, you may need to stay in the hospital. Care during severe illness may include: IV (intravenous) fluids.These are given through a vein to help keep your body hydrated. Oxygen. Supplemental oxygen or ventilation with a breathing machine (ventilator) may be given. This is done to keep enough oxygen in your body. Are you at risk for COVID-19? If youve been to a place where people have been sick with this virus, you are at risk for infection. You are at risk if you: Recently traveled to an affected area Had contact with a sick person who recently traveled to this area Had contact with a person who was diagnosed with COVID-19 How can COVID-19 be prevented? There is no vaccine yet. The best prevention is to not have contact with the virus. The CDC advises that people should not travel to areas where there are COVID-19 outbreaks right now for any reason that is not urgent. To help prevent spreading the infection, wash your hands often, or use an alcohol-basedhand sales support administrator. If you are in an area with COVID-19: Wash your hands often. Or use an alcohol-based hand sales support administrator often. Only touch your eyes, nose, or mouth with clean hands. Dont have contact with people who are sick. Follow local instructions about being in public. For example, you may be told to not use public transport for a period of time. Stay away from markets that have live or animals. Wash your hands after touching any animals. Don't touch animals that may be sick. Dont share eating or drinking tools with sick people. Dont kiss someone who is sick. Clean surfaces often with disinfectant. If you were in an area with COVID-19 in the last 14 days: Call your healthcare provider. He or she can talk with local health staff to see what action may be needed. Follow all instructions from your provider. Take your temperature every morning and evening for at least 14 days. This is to check for fever. Keep a record of the readings. Keep watch for symptoms of the virus. Tell your provider right away if you have symptoms. If you were in an area with COVID-19 and have a fever or other symptoms: Dont panic. Keep in mind that other illnesses can cause similar symptoms. Stay away from work, school, and public places. Limit physical contact with family members. Don't kiss anyone or share eating or drinking utensils. Clean surfaces you touch with disinfectant. This is to help prevent the virus from spreading. Call your healthcare provider. Explain that you have been exposed to COVID-19 and have symptoms. Do this before going to any hospital. Wait for instructions. Keep in mind that healthcare staff may wear protective equipment such as masks, gowns, gloves, and eye protection. You may be put in a separate room. This is to prevent the possible virus from spreading. Tell the healthcare staff about recent travel. This includes local travel on public transport. Staff may need to find other people you have been in contact with. Follow all instructions the healthcare staff give you. If you have been diagnosed with COVID-19 Follow all instructions from your healthcare provider. Dont leave your home, except to get medical care. Call your healthcare providers office before going. They can prepare and give you instructions. This will help prevent the virus from spreading. Dont go to work, school, or public areas. Dont use public transport or taxis. Stay away from other people in your home. Have them wear face masks around you. Dont share household items or food. Wear a face mask if you can. This includes at home or in a medical facility. Cover your face with a tissue when you cough or sneeze. Throw the tissue away. Wash your hands. Wash your hands often. Caregivers should: Follow all instructions from healthcare staff. Wear a face mask and protective clothing as advised. Wash hands often. Keep track of the sick persons symptoms. Clean surfaces, fabrics, and laundry thoroughly. Keep other people away from the sick person. When to call your healthcare provider Call your healthcare provider: If youve recently traveled and have symptoms If you have been diagnosed with COVID-19 and your symptoms are worse To learn more To find out more about COVID-19, visit the CDC website at www.cdc.gov/coronavirus/2019-ncov/index.html. [employer]. [address] [place] [address], [place] [address]. All rights reserved. This information is not intended as a substitute for professional medical care. Always follow your healthcare professional's instructions. This information has been adapted from [employer] Pending Studies at Discharge: No Stand-Alone Forms: My [facility] Skilled Items Patient informed of condition?: Yes DNR: No Discharge Level of Care: Skilled Communicable Disease: Yes Discharge Prognosis: Stable Lines: None Urinary Catheter: No Medications and DC Order Prescriptions: New cefdinir 300 mg Capsule 300 mg PO BID 4 Days Qty: 8 RF: 0 losartan 25 mg tablet 25 mg PO DAILY Qty: 30 RF: 0 Continued clopidogrel 75 mg tablet 75 mg PO QAM RF: 0 levothyroxine 88 mcg tablet 88 mcg PO [id number] RF: 0 rosuvastatin 10 mg tablet 10 mg PO HS RF: 0 cholecalciferol (vitamin D3) [Vitamin D3] 25 mcg (1,000 unit) Tablet 25 mcg PO HS RF: 0 acetaminophen 325 mg Tablet 650 mg PO Q4H MDD 3 GRAMS/24 HOURS PRN (Reason: fever or pain) Qty: 90 RF: 0 ipratropium-albuterol 0.5 mg-3 mg(2.5 mg base)/3 mL Solution For Nebulization 3 ml INHALATION Q8H RF: 0 sennosides-docusate sodium [Senna Plus] 8.6-50 mg Tablet 1 tab-cap PO BID RF: 0 dextromethorphan-guaifenesin 10-200 mg/5 mL Liquid 15 ml PO Q4H PRN (Reason: Cough) RF: 0 ascorbic acid (vitamin C) [Vitamin C] 500 mg Tablet 500 mg PO DAILY RF: 0 ferrous sulfate 325 mg (65 mg iron) Tablet,Delayed Release (Dr/Ec) 325 mg PO QPM RF: 0 food supplemt, lactose-reduced Liquid 240 ea PO HS RF: 0 food supplemt, lactose-reduced Liquid 240 ea PO QAM RF: 0 melatonin 5 mg Tablet 5 mg PO HS RF: 0 Minerin Creme Cream 1 applic TOPICAL AMPM RF: 0 menthol-zinc oxide [Calmoseptine] 0.44-20.6 % Ointment 1 applic TOPICAL BID RF: 0 spironolactone 25 mg tablet 25 mg PO DAILY RF: 0 metoprolol succinate 25 mg tablet extended release 24 hr 25 mg PO BID RF: 0 Changed furosemide 20 mg tablet 20 mg PO DAILY 30 Days Qty: 30 RF: 0 Discontinued methylprednisolone 4 mg Tablet 4 mg PO DAILY RF: 0 Discharge Orders: Discharge Order (Routine); Ordered 01/23/21 Ordered By: Jigar William Admission Data Admit Date/Time: 01/20/21 03:28 Attending Provider: Jigar William Admit Provider: Rodrigo Sheets Primary Care Provider: Bulmaro Forbes Other Providers: Rodrigo Sheets ; Shashi Marr ; Pankaj Gonzalez ; Roberto Real ; Dewey Benoit ; Fernando Brooks ; Diego Cooper ; Nellie Marin ; Maureen Montana ; Carmen Augustine ; Gabe Oshea ; Miqule Garcias ; Wesley Garcia Other Interventions: Discharge Summary Assessment (RN) Last Done: 01/23/21 14:13
== END 2021-01-23 16:20 | DRG 871 ==
LOC: ED 00:23 → 2E 03:28 → SUATTDRO 03:28 → 2E 06:32